=== PATIENT | male | born 1950 | race Caucasian/White ===

== ENCOUNTER → 2023-08-21 06:42 | Outpatient (REF) | payer MEDICARE, OTHER, SELFPAY ==
[2023-08-21 07:15] VITALS: BP 142/99; BP_SYST 75
[2023-08-21 07:18] LABS: % Basophils 0.5 % (0-2); % Eosinophils 2.2 % (0-6); % Immature Granulocytes 0.3 % (0-0.5); % Lymphocytes 30.2 % (20.5-51.1); % Monocytes 9.8 % (1.7-9.3); Absolute Eosinophils 0.1 10^3/uL (0-0.7); Absolute Monocytes 0.6 10^3/uL (0.1-0.6); Absolute Neutrophils 3.7 10^3/uL (1.4-6.5); Hematocrit 48.7 % (39.0-52.0); Hemoglobin 17.6 g/dL (13.0-18.0); Mean Corp Hgb Conc. 36.1 g/dL (33.0-37.0); Mean Corpuscular Hgb 30.1 pg (27.0-31.0); Mean Corpuscular Volume 83.4 fL (80.0-94.0); Mean Platelet Volume 9.9 fL (7.4-10.4); Nucleated Red Blood Cells % 0 % (-); Platelet Count 205 10^3/uL (130-400); Red Blood Cell Count 5.84 10^6/uL (4.70-6.10); Red Cell Dist. Width 12.5 % (11.5-14.5); White Blood Cell Count 6.5 10^3/uL (4.8-10.8)
[2023-08-21 07:31] LABS: INR 1.04; PT 13.4 Sec (11.4-14.6)
[2023-08-21] MEDS: NSS (PRESERVATIVE FREE) 0.25 ML IV (08:19)
[2023-08-21] MEDS: ATIVAN 0.5 MG IV (08:19)
[2023-08-21] MEDS: FLUSH (NSS) 1 FLUSH IV (08:20)
[2023-08-21 09:04] VITALS: BP 165/106; BP_SYST 96
[2023-08-21 09:25] VITALS: BP 156/104
== END ==
LOC: RADI 06:42
PROVIDERS: ATTENDING PHYSICIAN Internal Medicine Hematology & Oncology
DX: D75.1 Secondary polycythemia (principal); D68.8 Other specified coagulation defects; R59.9 Enlarged lymph nodes, unspecified
CPT/HCPCS: 88305; 88311; 88312; 36415; 38222; 77012; 85025; 85610; 88313; 88341; 88342

== ENCOUNTER 2025-03-02 05:28 | Inpatient (IN) | payer MEDICARE, OTHER, SELFPAY ==
[2025-03-02] VITALS (24 sets, daily range): BP systolic 111–186; BP diastolic 74–110; BMI 31.4; BMI 30.8
[2025-03-02 00:39] LABS: Hematocrit 44.9 % (39.0-52.0); Hemoglobin 14.3 g/dL (13.0-18.0); Mean Corp Hgb Conc. 31.8 g/dL (33.0-37.0); Mean Corpuscular Volume 71.5 fL (80.0-94.0); Platelet Count 140 10^3/uL (130-400); Red Cell Dist. Width 17.1 % (11.5-14.5)
[2025-03-02 00:56] LABS: ALT (SGPT) 50 U/L (0-50); AST (SGOT) 108 U/L (17-59); Albumin 4.0 g/dl (3.5-5.0); Alkaline Phosphatase 71 U/L (38-126); Blood Urea Nitrogen 24 mg/dl (9-20); Calcium 9.1 mg/dl (8.4-10.2); Carbon Dioxide 25 mmol/L (22-30); Chloride 105 mmol/L (98-107); Glucose 124 mg/dl (70-99); Potassium 3.9 mmol/L (3.5-5.1); Sodium 138 mmol/L (135-145); Total Protein 6.6 g/dl (6.3-8.2); eGFR > 60.00
[2025-03-02 01:07] LABS: Troponin I 0.017 ng/ml
[2025-03-02 01:19] LABS: Nucleated Red Blood Cells % 0 % (-)
[2025-03-02] MEDS: NSS 1000 IV (02:22)
[2025-03-02 02:27] LABS: Urine Character Clear (Clear)
--- NOTE | 2025-03-02 04:01 | ED.GENMED ---
History of Present Illness
General
Chief Complaint: Fatigue
Source: patient
Time Seen by Provider: 03/02/25 01:48
Nursing documentation reviewed up to this point in time: agreed with
History of Present Illness
History of Present Illness:
Note:
CHIEF COMPLAINT(S)
Difficulty walking and weakness.
HISTORY OF PRESENT ILLNESS
The patient is a 74-year-old male with a notable past medical history of a massive stroke from which he has recovered. He currently presents with significant difficulty in walking, attributed to weakness in his legs. This issue began approximately
over the past week. The patient describes his legs as 'tired' and states he must hold on to something to walk. There is no recent history of falls. The patient denies any pain other than in the right arm and reports having no strength. He also has
been experiencing agitation, particularly at night. Additionally, he has iron deficiency anemia and has experienced low platelet levels, although these issues have not been longstanding. He is not on any new medications.
ADDITIONAL HISTORY OBTAINED FROM SOURCES OTHER THAN THE PATIENT
Information from a family member indicates that the patient had recovered well physically from a previous stroke. The family member notes that the patient has been suffering from anxiety and mental agitation, especially at night, but otherwise has
been physically active until recently.
CHRONIC MEDICAL CONDITIONS SIGNIFICANTLY AFFECTING CARE
History of a massive stroke with subsequent recovery.
REVIEW OF SYSTEMS
- Musculoskeletal: Reports significant weakness in the legs and right arm; difficulty walking.
- Neurological: Mentions of occasional agitation at night, no recent falls.
- Hematological: Reports low platelets and iron deficiency.
PHYSICAL EXAM
General: Confused, moderate acute distress, agitated
Skin: Warm, dry.
Head: Normocephalic, atraumatic.
Neck: Supple, trachea midline.
Eye Ears, nose, mouth and throat: Oral mucosa moist.
Cardiovascular: Normal peripheral perfusion, No edema.
Respiratory: Respirations are non-labored.
Gastrointestinal: Abdomen nondistended.
Back: Normal range of motion, Normal alignment.
Musculoskeletal: Significant weakness in right arm and legs.
Neurological: Alert, No focal neurological deficit observed.
Psychiatric: Agitated, flat affect occasional night-time agitation.
PROBLEM LIST
Acute Problems:
- Difficulty walking and leg weakness
- Possible urinary retention
Confusion
Chronic Problems:
- Stroke (resolved but with residual issues)
- Iron deficiency anemia
PLAN
- Further assessment of the cause of leg weakness, including a possible neurological evaluation.
- Conduct a bladder scan to assess for urinary retention, possible Pederson catheter insertion for relief if necessary.
- Review complete blood count and iron levels to address the anemia and thrombocytopenia.
- Consider psychological support or intervention for nighttime agitation and anxiety management.
DIFFERENTIAL DIAGNOSIS
The Differential Diagnosis includes, in no particular order, and is not limited to:
- Peripheral neuropathy
- Anemia-related weakness
- Cerebrovascular accident recurrence
- Parkinsonian syndrome
- Orthostatic hypotension
- Muscle wasting or atrophy
- Deconditioning
- Urinary tract infection
- Spinal stenosis
- Medication side effects
CARE-UPDATE
03/02/25 - 03:45
The patients reports the onset of confusion began prior to 10 a.m. yesterday. Despite this, the patient attempted to drive, indicating an episode of disorientation as he believed he had a dental appointment. His confusion persisted throughout
the day. There is a history of a similar incident that resolved spontaneously without identifying the cause. The patient was found to be slightly dehydrated and received fluids, but this did not improve his mental status or affect. Further
investigation into potential underlying causes of acute confusion is warranted.
Disposition:
SUMMARY OF ENCOUNTER
The patient is a 74-year-old male with a history of a massive stroke who presented to the emergency department with acute confusion and dehydration. The confusion began prior to 10 a.m. yesterday and persisted for the last 20 hours. Despite
dehydration being addressed with fluids, there was no improvement in his mental status.
DISPOSITION
Admit
ASSESSMENT
Acute confusion possibly related to dehydration and a history of stroke.
DIAGNOSIS
- Acute confusion (ICD-10: R41.0)
- History of stroke (ICD-10: Z86.73)
- Dehydration (ICD-10: E86.0)
Past History
Past History
ED Past Medical History: GERD
Social History
Tobacco: Non-smoker
Personal:
Living: with family
Review of Systems
Review of Systems
Allergies reviewed?: No
Unable to obtain full review of systems at this time due to: due to acuity
Other source history: family
All Other Systems: Not applicable
Phy Exam
Physical Exam
Physical Exam:
.
Course
Orders/Labs/Results
Orders:
Orders
03/02/25 00:24
Electrocardiogram (*1) Urgent
Reason for Study: Fatigue / Weakness
03/02/25 00:25
EKG- Treatment ONCE
03/02/25 00:28
Complete Blood Count/With Diff Urgent
03/02/25 00:29
Comprehensive Metabolic Panel Urgent
Troponin I Urgent
03/02/25 01:54
Bladder Scan- Treatment ONCE
Bladder Scan As Directed
Follow Bladder Retention/Intermittent Cath Algorithm?: Yes
PRN if no void in __ hours: 6
Frequency: Per Retention Algorithm
If Bladder Scan Result >: 400
then:: Straight cath
Straight Cath As Directed
Frequency: Per Retention Algorithm
Additional Instructions: straight cath as needed per acute urinary retention algorithm for 24 hrs
Additional Instructions: for bladder scan greater than 400 mL
03/02/25 01:55
Straight cath- Treatment ONCE
03/02/25 02:00
0.9% Sodium Chloride 1000 ml [Nss] 1,000 ml IV BOLUS
03/02/25 02:05
Urinalysis Reflex To Culture Urgent
Date Specimen was Collected: 03/02/25
Time Specimen was Collected: 01:54
03/02/25 02:[address] [CT Head W/o Iv Contrast] Urgent
Comment:
Reason For Exam: change in mental status
Abnormal Lab Results
03/02/25 03/02/25
00:28 00:29
RBC 6.28 H 10^6/uL
(4.70-6.10)
MCV 71.5 L fL
(80.0-94.0)
MCH 22.8 L pg
(27.0-31.0)
MCHC 31.8 L g/dL
(33.0-37.0)
RDW 17.1 H %
(11.5-14.5)
MPV 10.9 H fL
(7.4-10.4)
Absolute Neuts (auto) 7.2 H 10^3/uL
(1.4-6.5)
Neutrophils % 81.0 H %
(42.2-75.2)
Lymphocytes % 13.0 L %
(20.5-51.1)
BUN 24 H mg/dl
(9-20)
Glucose 124 H mg/dl
(70-99)
AST 108 H U/L
(17-59)
03/02/25 00:28
03/02/25 00:29
Vital Signs
Initial and Last Documented VS:
Initial Vital Signs
Temp Pulse Resp Pulse Ox
99.0 F 88 16 98
03/02/25 00:19 03/02/25 00:19 03/02/25 00:19 03/02/25 00:19
Last Documented Vital Signs
Temp Pulse Resp BP Pulse Ox
99.0 F 69 20 128/78 98
03/02/25 00:19 03/02/25 04:07 03/02/25 04:07 03/02/25 04:07 03/02/25 04:07
*Radiology
Radiology exam reviewed: radiology read reviewed
*Pulse Oximetry
SaO2: 92
Oxygen Mode of Delivery: Room air
Patient hypoxic: no
*Critical Care Note
Total Time (30-74mins, 75-104mins- exclusive of procedures): Not Applicable
Update Note
Update Note:
NAME: RADHA MENDOSA
DATE OF EXAM: 03/02/2025
Patient No: [id number]
Physician: JONNA^Haily
Date of : 1950
Past Medical History (entered by Technologist):
Reason For Exam (entered by Technologist):
Other Notes (entered by Technologist): change in mental status
Prior sent
Additional Information (per [facility]):
CT HEAD
IMPRESSION:
Comparison with CT head from 07/11/19.
No acute intracranial hemorrhage, herniation or hydrocephalus.
Again seen, old right MCA stroke.
Stable ventricular size and similar appearance of supratentorial white matter.
Case finalized at 359am ET
ED Attending Note
-
Portions of this chart may have been created with voice recognition software.� Occasional wrong word or��sound alike� substitutions may have occurred due to the inherent limitations of voice recognition software.
Discharge Plan
Departure
Patient Disposition: Admit
Date of Disposition: 03/02/25
Time of Disposition: 04:01
Admit to: Med/Surg
Presentation/result/management discussed w/ accepting MD/DO: Hospitalist
Discharge Problem:
Acute alteration in mental status, Acute dehydration, History of stroke
Prescriptions:
No Action
rosuvastatin 5 MG tablet
5 mg PO WE
alfuzosin [Uroxatral] 10 MG tablet extended release 24 hr
10 mg PO HS
Eliquis 5 MG tablet
5 mg PO BID
acetaminophen [Tylenol Extra Strength] 500 MG tablet
1,000 mg PO Q6HPRN PRN (Reason: mild pain)
escitalopram oxalate 20 MG tablet
20 mg PO DAILY
Metamucil Fiber (aspartame) 1 PACKET powder in packet
1 packet PO DAILY
finasteride 5 MG tablet
5 mg PO HS
levetiracetam 500 MG tablet
1,000 mg PO BID Qty: 120 0RF
losartan 100 mg Tablet
100 mg PO DAILY
Referrals:
Merrick Mcpherson MD [Family Provider, Family Practice]
Interventions
Interventions:
*Risk Screen - Suicide Last Done: 03/02/25 00:19
*General Assessment Last Done: 03/02/25 00:19
*Neglect/Abuse Screening Last Done: 03/02/25 00:19
*ED- Fall Risk Assessment Last Done: 03/02/25 02:01
*ED COVID-19 Vaccine History Last Done: 03/02/25 02:01
Discharge Date and Time
Print Language: LIBERIAN
--- NOTE | 2025-03-02 04:18 | HPS.HSE ---
Family Physician
-
Family Physician: Merrick Mcpherson
Chief Complaint
-
Altered mental status
History of Present Illness
Patient is a 74-year-old male with past medical history significant for prior right MCA stroke that was dense but which is currently only minimal residual deficits including mild lower extremity weakness and some intermittent effusion, atrial
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
According to spouse patient was driving and in usual state of health up until very recently including the last few days. He initially stated that he was dragging his foot more on his feet where heavy. Has on blood test which showed slightly low
iron and slightly low sodium of 133. He hydrated himself with electrolytes and at red meats. However he is weakness worsened and they started to appear more confused. He was disoriented and unable to reach realize when his appointments where. By
time distance of this evening patient appeared frustrated and unable to process*White is all accomplished minimal goals. Even when he wants to use the bathroom in the middle of the night he seemed confused and agitated.
Spouse denies any recent travels or known sick contacts. She initially did not report any rash but was he was found to have a petechial rash in the bilateral shins.
According to spouse patient has not complained of any fevers. Has not had any episode of chills. He did not complain of any shortness of breath cough or chest discomfort. He has not had any diarrhea nausea or vomiting. He has not been complain
of any headaches. Spouse reported some asymmetry in his gaze but she did not report any focal weakness facial droop or slurring of speech. At this time patient is unable to provide any history.
In the emergency department he was afebrile with a temp of 99, blood pressure was normal at 128/78 with a pulse rate of 69 and was satting 98% on 2 L. ECG shows atrial fibrillation at a rate of 81. CBC was unremarkable, electrolytes BUN/creatinine
were all normal. Troponin was negative, UA was negative.
Medical History
Past Medical History
Past Medical History: Reports Arrhythmia (Atrial fibrillation on anticoagulation), CVA, HTN, Seizures and Other (BPH,)
Past Surgical History: Reports Appendectomy and Other
Social History
Tobacco: Non-smoker
Alcohol: None
Drug: None
Personal:
Living: With Family
Employment: Disabled
Family History
Family History: Not pertinent
Allergies / Home Medications
Allergies reflects when Allergies were last updated in [facility].
Home Medications with original date entered in [facility]
Allergy/Medication List:
Allergies
Allergy/AdvReac Type Severity Reaction Status Date / Time
No Known Allergies Allergy Unverified 09/19/21 06:45
Home Medications
acetaminophen 500 mg tablet (Tylenol Extra Strength) 1,000 mg PO Q6HPRN PRN mild pain 07/11/19
alfuzosin 10 mg tablet,extended release 24 hr (Uroxatral) 10 mg PO HS 07/11/19
apixaban 5 mg tablet (Eliquis) 5 mg PO BID 07/11/19
escitalopram oxalate 20 mg tablet 20 mg PO DAILY 07/11/19
finasteride 5 mg tablet 5 mg PO HS 07/11/19
psyllium husk 3.4 gram oral powder packet (Metamucil Fiber (aspartame)) 1 packet PO DAILY 07/11/19
rosuvastatin 5 mg tablet 5 mg PO WE 07/11/19
levetiracetam 500 mg tablet 1,000 mg (2 x 500 mg) PO BID #120 tabs 07/13/19
losartan 100 mg tablet 100 mg PO DAILY 08/21/23
Review of Systems
-
Unable to obtain full review of systems at this time due to: Patient Non-verbal
History Source: Family
Constitutional: Denies Fever or Chills
EENT: Denies Sore Throat or Runny Nose
Respiratory: Reports No Symptoms
Cardiac: Reports No Symptoms
Abdomen/GI: Reports No Symptoms
: Reports No Symptoms
Musculoskeletal: Reports No Symptoms
Skin: Reports Rash; Denies Itching
Neurological: Reports Weakness and Other (Confusion)
Endocrine: Reports No Symptoms
Hematologic/Lymphatic: Reports No Symptoms
Psych: Reports No Symptoms
Physical Exam
Vital Signs
Vital Signs
Temp Pulse Resp BP Pulse Ox
99.0 F 69 20 128/78 98
03/02/25 00:19 03/02/25 04:07 03/02/25 04:07 03/02/25 04:07 03/02/25 04:07
Physical Exam
General: Other (very confused and essentially non-verbal, looks stated age and in no acute distress)
HEENT: NormoCephalic, Anicteric, Moist mucous membranes, Atraumatic and Oxygen
Respiratory: Clear (anteriorly) and Non Labored Respirations
Cardiac: S1/S2 and Irregular Rhythm; No Murmur, Rub or Gallop
Breast: Deferred by me
GI: Soft, Non Distended, Normal Bowel Sounds and Tender
Rectal: Deferred by Provider
Genito-urinary: Deferred by me
Musculoskeletal: No Clubbing, No Cyanosis and No Edema
Skin: Rash (bilateral papulo-macular erythematous rash on the shins)
Neuro: Awake, Slurred Speech and Other (unable to complete full exam. Delirium without agitation or somnolence, Patient can follow very simple commands but does not respond with any speech. Moves all extremities when asked and exam otherwise
non-focal); No Facial Droop
Hematologic/Lymphatic: No Lymphadenopathy
Psych: Confused
Laboratory Results
-
03/02/25 00:28
03/02/25 00:29
Laboratory Results
Total Bilirubin 0.5 mg/dl (0.2-1.3) 03/02/25 00:29
AST 108 U/L (17-59) H 03/02/25 00:29
ALT 50 U/L (0-50) 03/02/25 00:29
Alkaline Phosphatase 71 U/L (38-126) 03/02/25 00:29
Troponin I 0.017 ng/ml 03/02/25 00:29
Data Reviewed
-
CT Scan: Report Reviewed by me
Medical Tests (Nuc Med, Echo, EKG etc): Image Personally Visualized and interpreted
Lab Data: Labs Reviewed by me
Old Records: Reviewed
Impression/Plan
-
IMPRESSION:
Is a 74-year-old with past medical history significant for right MCA stroke with minimal residual deficits, atrial fibrillation on anticoagulation, BPH and hypertension presenting to the emergency department with rapid declining mental status over
the last 1 week. Patient was driving 1 week ago but now he is extremely confused and unable to verbalize any desires or respond with verbal statements to any questions, he has severe apraxia. He is delirious but is not agitated and is not
somnolent. He can follow very simple commands. ED workup was mostly unrevealing without any evidence of any acute infection. ECG shows his atrial fibrillation was rate controlled. CT of the head shows the old stroke but no acute intracranial
hemorrhage herniation or hydrocephalus or other changes. No apparent seizures.
PLAN:
Altered mental status -patient with delirium without somnolence or agitation. He has no focal deficits. He has a rash in his lower extremities, no neck stiffness, no nuchal rigidity. He is afebrile. He has no known sick contacts or recent
travel. No evidence of any insect bites. He does grimace with palpation of his abdomen but not anywhere else. Suspect toxic metabolic encephalopathy more than recrudescence of his stroke.
- admit to telemetry
- continue eval of systemic infectious process with xray, CT a/p, covid 19 and influenza
- check inflammatory markers, tpalldium, lyme
- MRI w/ w/o contrast to eval for recrudescence / new infarct
- considering herpes/viral encephalitis, Neurology consult. In the absence of meningeal signs, held off on LP or anti-infectious agents
- neurochecks q6 hours
- continue keppra (checking levels)
- continue statin
AFIB - rate control without mic agent
- continue eliquis
- continue losartan
BPH
- on alfusozin and finasteride
DVT PPX - on eliquis
Code status - Full Code, no prolonged life support
[2025-03-02 06:54] LABS: Ammonia < 9 umol/L (9-30)
[2025-03-02 06:57] LABS: Blood Urea Nitrogen 22 mg/dl (9-20); Calcium 8.6 mg/dl (8.4-10.2); Carbon Dioxide 29 mmol/L (22-30); Chloride 104 mmol/L (98-107); Estimated Creatinine Clearance 87 ml/min; Glucose 111 mg/dl (70-99); Potassium 4.2 mmol/L (3.5-5.1); Sodium 138 mmol/L (135-145); eGFR > 60.00
[2025-03-02 07:00] LABS: C-Reactive Protein 22.40 mg/L (0.0-10.00)
[2025-03-02 07:02] LABS: COVID-19 Antigen Negative (Negative)
[2025-03-02 07:06] LABS: Hematocrit 44.7 % (39.0-52.0); Hemoglobin 13.9 g/dL (13.0-18.0); Mean Corp Hgb Conc. 31.1 g/dL (33.0-37.0); Mean Corpuscular Volume 72.7 fL (80.0-94.0); Platelet Count 146 10^3/uL (130-400); Red Cell Dist. Width 16.1 % (11.5-14.5)
--- NOTE | 2025-03-02 08:30 | TRANSFER ---
0755: pt arriving from Er requiring pullover into hospital bed accompanied by spouse. pt non verbal, on 4L NC. pt does follow simple instructions. NIH and swallow screen being preformed and documented. pt to remains NPO. NIH resulted in a score of
14. MD Garcia and MD Salas made aware via T.T. plan of care continues to be followed.
--- NOTE | 2025-03-02 08:48 | CON.NEURO ---
Addendum entered and electronically signed by Angelo Salas MD 03/02/25 14:16:
Studies reviewed.
I have personally examined the patient. I reviewed and agree with the J[employer] G[employer] DEVELOPER's Note.
My addenda:
Awake, not alert, minimally interactive. No acute distress.
Speech mute.
Follows 1-step requests w/ difficulty and not without physical stimulation to replicate the task. Diffuse medium amplitude hand tremor with action.
Extra-ocular movements grossly intact.
Facial movements full and symmetric.
Normal UE movements bilaterally.
Neck: full ROM.
Chest: no dyspnea
Heart: no JVD
Ext: (-) Clubbing, (-) Cyanosis, (-) Edema
IMPRESSIONS/RECOMMENDATIONS:
Abrupt onset of encephalopathy of unclear etiology. Based on the mild maculopapular rash on bilateral lower extremities distally, there is the possibility of infectious etiology. More likely, the patient is experiencing either status epilepticus
or recurrent acute ischemic stroke
Check EEG, consider continuous EEG monitoring
Check MRI of brain, I reviewed, there is no obvious evidence of an acute ischemic lesion nor is there evidence of meningitis at this time
Replace levetiracetam with the use of valproic acid due to the patient's agitation
Consider lumbar puncture based on EEG and MRI findings
Unclear meaning of the urine drug screen testing suggesting methamphetamine
Continue apixaban
Check blood work for additional metabolic abnormalities
D/W patient / family
Will continue to follow patient.
Original Note:
Neuro Assessment/Plan
Assessment
The patient is a 74-year-old male with a notable past medical history of right MCA stroke with subsequent seizures from 2018 currently taking Levetiracetam. He presents to [facility] on 03/02/2025 with significant difficulty in walking and change in
mental status.
Plan
Impression: abrupt onset of ambulatory dysfunction, change in mental status most likely due to seizure vs meningitis vs stroke which is less likely given he is anticoagulated with Eliquis
-obtain LP
-obtain brain MRI as planned
-obtain EEG
-as patient with agitation, discontinue Levetiracetam and start Valproic Acid 1000 mg BID
-seizure precautions
-check blood work for metabolic disturbances and infection
-continue Eliquis and statin therapy for secondary stroke prevention
-PT/OT/ST evaluations
-DVT prophylaxis
All questions encouraged and answered, plan of care discussed with Dr. Salas, patient and family
Consultation
Order
Date of Consultation: 03/02/25
Requesting Provider: hospitalist
Reason for Consult: change mental status
Subjective/Objective
Subjective Data
Date of Service: March 02, 2025
The patient is currently nonverbal and minimally participating, all information obtained from chart and patient's at bedside. The patient is a 74-year-old male with a notable past medical history of right MCA stroke with subsequent seizures
from 2018 currently taking Levetiracetam. He presents to [facility] on 03/02/2025 with significant difficulty in walking and change in mental status. This issue began approximately over the past week. There is no recent history of falls. He also had been
experiencing agitation, particularly at night. This morning notes patient became nonverbal, although he did make a joke to his nurse but has not said anything else. Additionally, he has iron deficiency anemia and has experienced low platelet
levels, although these issues have not been longstanding. He is not on any new medications. No recent illness or infection. On his current exam patient appears confused, he is nonverbal and minimally following commands. He is tremulous throughout,
with bilateral right beating nystagmus. He has facial flushing, rash noted to his b/l shins and requiring oxygen via nasal cannula.
He was last seen in the outpatient setting by Dr. Salas on 04/07/2024.
'Stroke:�
������History from patient
Since last visit:
03/2024
>> returns for refill of anti-seizure medication
June 2021
no new events
Previous testing: MRI of brain, Linq device, TTE, CT head, blood work
Previous evaluation: neuropsychological evaluations, [facility], cardiology
Prior medication(s): ASA, Atorvastatin, anti-HTN meds
Side-effects with medications: none
Previous treatment(s): none
Frequency: daily
Duration: since 01/2018
Intensity: significant
Etiology: presumed thrombo-embolic
Location of lesion: R frontal
Quality: N/A
Associated symptom(s): anxiety, previously left-sided weakness and cognitive dysfunction
Improving factors: patient unaware of any
Worsening factors: patient unaware of any
Unchanged by: patient unaware of any
Severity: significant
~~~
Pattern:
began (prior to initial evaluation in this office):
with falling and being found by his at 0700 on 01/2018
found to have L-sided weakness and cogntive dysfunction
then presented to ED, decided to need Alteplase and underwent Intra-arterial Thrombectomy
had post-procedural cerebral edema which worsened over next day leading to transfer to [facility]
no intervention at [facility], later sent to rehab.
Since hospitalization: difficulty w/ name recall, improving x 3 weeks
Followed by: return to driving
has planned neuropsychological testing in October
episodes of anxiety, memory difficulty
started Lexapro (and increased to 10 mg 2 days ago)
was seen by [facility] in past 2 months
>> Contacted by cardiology and they did not note any atrial fibrillation. Memory has continued to improve. He had been back to work and is retiring next week.
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
>> 05/2020
increased anxiety
balance off in the AM, no trouble with walking or running.
Seizure:�
������Since last visit:
June 2021
no new events
Previous testing: blood work, MRI of brain, 16 hours cEEG
Prior medication(s): Levetiracteam
Side-effects with medications: none
Previous treatment(s): therapy evaluation
Frequency: once 06/2019
Intensity: N/A
Duration: since 06/2019
Duration of symptom: > 1 hour
Associated symptom(s): generalized shaking, tongue biting
Etiology: presumed secondary to ischemic stroke
Location: N/A
Quality: unchanged
Improving factors: patient unaware of any
Worsening factors: patient unaware of any
Unchanged by: patient unaware of any
Severity: significant
~~~
Pattern:
Hospitalized due to: 07/11/2019 generalized shaking on R cheek biting while seated
seen by our inpatient service and my colleague
Adapted from the inpatient note:
He had 2 generalized tonic-clonic seizures and mental status was not back to baseline completely between 2 seizures.
Patient had started Methotrexate 2 weeks before onset
Found as dx: unclear cause ? Methotrexate/ prior stroke
Since hospitalization: was having visual hallucinations, resolved x past 2 days
>> 24 hour EEG completed on 08/18/2019. Interpretation was that the EEG was normal during the awake and sleep states. The study was somewhat limited as leads in the right temporoparietal region became disconnected at the end of the recording. He
denies any recent seizure activity. He denies any staring. He has been able to work and his memory has improved since last visit.'
Objective Data
Vital Signs
Temp Pulse Resp BP Pulse Ox
98.2 F 88 20 165/106 91
03/02/25 08:20 03/02/25 08:20 03/02/25 08:20 03/02/25 08:20 03/02/25 08:20
Lab Results
03/02/25 05:57
03/02/25 05:57
Sodium 138 mmol/L (135-145) 03/02/25 05:57
Potassium 4.2 mmol/L (3.5-5.1) 03/02/25 05:57
BUN 22 mg/dl (9-20) H 03/02/25 05:57
Glucose 111 mg/dl (70-99) H 03/02/25 05:57
Calcium 8.6 mg/dl (8.4-10.2) 03/02/25 05:57
Ur Buprenorphine Negative (Negative) 03/02/25 02:05
Patient Allergies
No Known Allergies Allergy (Unverified 09/19/21 06:45)
Review of Systems
-
Unable to obtain full review of systems at this time due to: Patient Non-verbal
History Source: Patient
Physical Exam
-
physical exam limited due to patient being nonverbal and not participating in exam
General: Wearing Oxygen
HEENT: Normocephalic, Atraumatic and Anicteric
Neck: Full Range of Motion
Respiratory: Accessory Resp Muscle Use
Cardiac: No JVD
GI: Non-distended
Skin: Rash (b/l LEs)
Extremities: No Clubbing, No Cyanosis and No Edema
Psych: Confused and Agitated
Extended Neurological Exam
Attention Span & Concentration: Awake, Alert and Unable to Perform 2 Step Request
Memory: Unable to Assess (non verbal)
Tremor: Other (tremulous throughout)
Speech: Mute
Cranial Nerve II: Left Eye: Unable to Assess
Cranial Nerve II: Right Eye: Unable to Assess
Cranial Nerves III, IV, : Extraocular Movement: Other (b/l nystagmus to the right)
Cranial Nerve VII: Facial Symmetry: Normal Facial Symmetry
Cranial Nerve VIII: Hearing: Unable to Assess
Muscle Strength, Overall: Spontaneously Moves
Pronator Drift: Unable to Assess
Data Reviewed
-
CT Head: Report Reviewed and Image Reviewed
Labs: Report Reviewed
Lipid Profile: Ordered
HgbA1C: Ordered
Reviewed with: Physician, Patient and Family
Old Records: Summarized
Medications
-
Active Medications
Generic Name Dose Route Start Last Admin
Trade Name Freq PRN Reason Stop Dose Admin
Acetaminophen 650 mg 03/02/25 07:48
Acetaminophen 325 Mg Tablet PO 03/30/25 07:47
Q4HPRN PRN
mild pain/CAI/temp> 100.4F
Albuterol/Ipratropium 3 ml 03/02/25 07:48
Ipratropium 0.5/Albuterol 3 Mg (3 Ml Ampul) INH
R Q4HPRN PRN
shortness of breath
Protocol
Apixaban 5 mg 03/02/25 08:00
Apixaban (Eliquis) 5 Mg Tablet PO 03/30/25 07:59
BID LEIA
Bisacodyl 10 mg 03/02/25 07:48
Bisacodyl 10 Mg Rectal Suppository RECTAL 03/30/25 07:47
[id number] PRN
constipation
Escitalopram Oxalate 20 mg 03/02/25 08:00
Escitalopram 20 Mg Tablet PO 03/30/25 07:59
DAILY LEIA
Finasteride 5 mg 03/02/25 22:00
Finasteride 5 Mg Tablet PO 03/30/25 21:59
HS LEIA
Dextrose/Lactated Ringer's 1,000 mls @ 60 mls/hr 03/02/25 07:48
D5lr IV
.[id number] LEIA
Valproate Sodium 1,000 mg/ 60 mls @ 55 mls/hr 03/02/25 08:20
Sodium Chloride IV 03/02/25 09:25
NOW STA
Valproate Sodium 1,000 mg/ 60 mls @ 60 mls/hr 03/02/25 20:00
Sodium Chloride IV 03/30/25 19:59
Q12H LEIA
Losartan Potassium 100 mg 03/02/25 08:00
Losartan 100 Mg Tablet PO 03/30/25 07:59
DAILY LEIA
Ondansetron HCl 4 mg 03/02/25 07:48
Ondansetron 4 Mg/2 Ml Vial IV 03/30/25 07:47
Q6HPRN PRN
nausea and vomiting
Polyethylene Glycol 17 grams 03/02/25 07:48
Polyethylene Glycol Powder 17 Grams Packet PO 03/30/25 07:47
DAILYPRN PRN
constipation
Psyllium Hydrophilic Mucilloid 1 packet 03/02/25 08:00
Psyllium Packet PO 03/30/25 07:59
DAILY LEIA
Rosuvastatin Calcium 5 mg 03/04/25 08:00
Rosuvastatin (Crestor) 5 Mg Tablet PO 04/01/25 07:59
WE LEIA
Senna/Docusate Sodium 1 tablet 03/02/25 07:48
Docusate W/Senna (Karen-Colace) Tablet PO 03/30/25 07:47
BIDPRN PRN
constipation
Tamsulosin HCl 0.4 mg 03/02/25 22:00
Tamsulosin 0.4 Mg Capsule PO 03/30/25 21:59
HS LEIA
Home Medications
�Medication �Instructions �Recorded
acetaminophen 500 mg tablet 1,000 mg PO Q6HPRN PRN mild pain 07/11/19
(Tylenol Extra Strength)
alfuzosin 10 mg tablet,extended 10 mg PO HS 07/11/19
release 24 hr (Uroxatral)
apixaban 5 mg tablet (Eliquis) 5 mg PO BID 07/11/19
escitalopram oxalate 20 mg tablet 20 mg PO DAILY 07/11/19
finasteride 5 mg tablet 5 mg PO HS 07/11/19
psyllium husk 3.4 gram oral powder 1 packet PO DAILY 07/11/19
packet (Metamucil Fiber
(aspartame))
rosuvastatin 5 mg tablet 5 mg PO WE 12/27/19
levetiracetam 500 mg tablet 1,000 mg (2 x 500 mg) PO BID #120 07/13/19
tabs
losartan 100 mg tablet 100 mg PO DAILY 08/21/23
Past History
Past History
ED Past Medical History: GERD
Family/Social History
Tobacco: Non-smoker
Personal:
Living: with family
[2025-03-02 08:56] LABS: HDL Cholesterol 35 mg/dl; LDL Cholesterol, Calculated 46 mg/dl; Very Low Density Lipoprotein 39 mg/dl (0-30)
[2025-03-02] MEDS: DEPACON 60 MG IV ×2 (09:22→22:48)
[2025-03-02 09:24] LABS: Nucleated Red Blood Cells % 0 % (-)
[2025-03-02 09:45] LABS: Vitamin B12 627 pg/ml (239-931)
[2025-03-02] MEDS: LEXAPRO PO (09:51)
[2025-03-02] MEDS: COZAAR PO (09:51)
[2025-03-02] MEDS: METAMUCIL, KONSYL PO (09:51)
[2025-03-02] MEDS: ELIQUIS PO ×2 (09:51→20:52)
[2025-03-02 10:14] LABS: Glycohemoglobin (HgbA1c) 6.2 % (4.0-5.6)
[2025-03-02] MEDS: VALIUM INJECTION 5 MG IV (10:25)
[2025-03-02] MEDS: ZOFRAN 4 MG IV (10:32)
[2025-03-02] MEDS: D5LR 1000 IV (10:34)
--- NOTE | 2025-03-02 10:43 | PTCARENOTE ---
PT with 2.5 min seizure occurring while MD Garcia at bedside. Airway protected, HOB raised with equipment at bedside; zofran administered preemptively with pt on 4L NC. Seizure precautions in effect. pt to be transfered to IMU pending ready bed.
awaiting bedside EEG. pt remains on cardiac monitoring. continuous pulse ox established. bed low, rails elevated, spouse at bedside. side rails padded. plan of care continues to be followed.
--- NOTE | 2025-03-02 10:51 | W.PN.UPDATE ---
Update Note
Progress Note Update
Seen and admitted by Dr. López early hours of this am.
Seen later with Dr. Noel neurology who is recommending switch of seizure medication and consider transfer to higher level of care.
Came in today with the patient. Patient was mute but eyes open. During my conversation his left face started to twitch and then he had a generalized tonic-clonic seizure for 1 minute. Now postictal.
IV Valium 5 mg was given once.
According to the at bedside no breakthrough seizures since initial seizure. He was on Keppra.
Patient admitted with progressive change in mental status and lower extremity weakness.
Continue with valproic acid per neurology. As needed IV Valium for breakthrough seizures. If recurrent would need continuous EEG. For now we will do a bedside EEG
MRI of the brain once he recovers from his postictal state.
Pt was breathing heavy prior to seizure but was also hypoxic needing O2 via NC at 3 l
chest x-ray raising concern for pulmonary edema versus bilateral pneumonia. . Chest was sounding clear to me.
He was afebrile and white count was normal. Check a BNP. Troponins were 0.01 on admission.
EKG on admission showed afib (known hx) on eliquis .Rate controlled. Follow on tele.
Follow BNP.
Tx to IMU
DW and neuro
CHACE RN
--- NOTE | 2025-03-02 12:27 | EEG.RPT ---
Electroencephalogram Report
Recording
Date of EE03/02/25
Type of EEG: Routine
Length of EEG recordin minutes
Done with Video Recording: Yes
Patient Status: Inpatient
Recording Conditions: Awake and Drowsy
Hyperventilation Performed: No
Photic Stimulation Performed: Yes
Report
LESS THAN 1 HOUR EEG REPORT
LESS THAN 1 HOUR EEG INTERPRETATION:
Moderately abnormal EEG for age due to diffuse bihemispheric slowing
CLINICAL CORRELATION:
This study was suggestive of diffuse cortical dysfunction without focal abnormality. No seizures were recorded.
Clinical correlation is advised.
METHODS:
A 21 channel digitized electroencephalogram (EEG) was performed at the bedside. The 10/20 international system of electrode placement was used with ECG and lateral/vertical eye movements recorded. Persyst QEEG monitoring was performed.
QUALITY OF STUDY:
Fair�poor
ELECTROENCEPHALOGRAPHER IMPRESSION(S):
Background
There was a low amplitude unorganized anterior-posterior voltage gradient of delta frequency
There were no significant asymmetries of background activity noted.
Sleep
Drowsiness present
Photic Stimulation
Failed to activate the record.
ECG
Normal sinus rhythm
[2025-03-02 13:13] LABS: Lyme Antibody Screen, EIA Presump. Positive (Negative)
--- NOTE | 2025-03-02 15:43 | TRANSFER ---
report via phone provided to Perlita Woodruff receiving nurse in IMU. This Rn will be transporting pt on monitors with spouse at bedside with seizure precautions intact.
--- NOTE | 2025-03-02 16:42 | PTCARENOTE ---
Patient arrived to IMU from 3W. Patient slid from stretcher to bed. Nonverbal and occasionally moans. Patient tracks with eyes. Drowsy, but arouses to verbal stimuli. NIH and neuro check completed. NIH of 28. Dr. Garcia made aware. Able to squeeze
slightly with L hand. Unable to perform any other NIH scale task. On RA with SpO2 92%. A fib on the monitor. BP stable. Incontinent to urine upon arrival to the floor. Karen care completed. Strict NPO. Generalized red non raised rash throughout body.
IVF running per order. Seizure and aspiration precautions maintained. Max assist when turning patient as he gets very agitated. Call argueta within reach, bed in lowest position, bed of wheels locked, and bed alarm in place and audible.
[2025-03-02] MEDS: LASIX 20 MG IV (17:00)
[2025-03-02] MEDS: PROSCAR PO (21:13)
[2025-03-02] MEDS: FLOMAX PO (21:13)
--- NOTE | 2025-03-02 21:20 | W.PN.UPDATE ---
Update Note
Progress Note Update
RN reporting patient c/o chest pain and grabbing his chest, and then he went mute and wasn't responding much.
patient seen and evaluated, patient looks at you when you call name, not answering to questions at present, responds to pain and upon turning by moaning. Lungs clear, mildly tachypneic, irregular HR, warm to touch. voiding without difficulty
101.5 rectally, 79 22 137/86 92% 2l
EKG noted, will order labs, chest X rayTylenol.
lab results noted
will order blood culture if patient spikes up fever again
Procal, CBC, BMP in AM
[2025-03-02] MEDS: TYLENOL/FEVERALL 650 MG RECTAL (21:49)
[2025-03-02 21:56] LABS: Hematocrit 43.6 % (39.0-52.0); Hemoglobin 13.9 g/dL (13.0-18.0); Mean Corp Hgb Conc. 31.9 g/dL (33.0-37.0); Mean Corpuscular Volume 70.7 fL (80.0-94.0); Platelet Count 158 10^3/uL (130-400); Red Cell Dist. Width 17.2 % (11.5-14.5)
[2025-03-02 22:18] LABS: Blood Urea Nitrogen 19 mg/dl (9-20); Calcium 8.9 mg/dl (8.4-10.2); Carbon Dioxide 26 mmol/L (22-30); Chloride 106 mmol/L (98-107); Estimated Creatinine Clearance 115 ml/min; Glucose 128 mg/dl (70-99); Magnesium 2.0 mg/dl (1.6-2.3); Potassium 4.0 mmol/L (3.5-5.1); Sodium 137 mmol/L (135-145); eGFR > 60.00
[2025-03-02 22:29] LABS: Troponin I 0.062 ng/ml
[2025-03-03] VITALS (21 sets, daily range): BP systolic 121–169; BP diastolic 79–116; BMI 30.7
[2025-03-03] MEDS: D5LR 1000 IV (04:34)
[2025-03-03 04:53] LABS: Hematocrit 43.8 % (39.0-52.0); Hemoglobin 13.8 g/dL (13.0-18.0); Mean Corp Hgb Conc. 31.5 g/dL (33.0-37.0); Mean Corpuscular Volume 71.5 fL (80.0-94.0); Platelet Count 155 10^3/uL (130-400); Red Cell Dist. Width 17.1 % (11.5-14.5)
[2025-03-03 05:12] LABS: Procalcitonin 0.05 ng/ml (0.0-0.25)
[2025-03-03 05:13] LABS: Blood Urea Nitrogen 20 mg/dl (9-20); Calcium 8.5 mg/dl (8.4-10.2); Carbon Dioxide 26 mmol/L (22-30); Chloride 108 mmol/L (98-107); Estimated Creatinine Clearance 115 ml/min; Glucose 122 mg/dl (70-99); Potassium 3.8 mmol/L (3.5-5.1); Sodium 140 mmol/L (135-145); eGFR > 60.00
[2025-03-03 05:27] LABS: Troponin I 0.058 ng/ml
--- NOTE | 2025-03-03 06:07 | PTCARENOTE ---
Assumed care of pt from clifford RN. afib on monitor, hr 70-80s. 93% on 2L NC. D5LR infusing @ 60 mL/hr. Pt drowsy and nonverbal at start of shift with NIH of 22. Pt has slowly become more alert and now responds with single word or short phrases,
answers and nods his head appropriately. Current NIH 11. Neuro checks completed q4 (see worklist). At 2129, pt's rectal temp 101 F. Pt grabbed his chest, scrunched his face, and groaned. This RN asked the patient if he was having chest pain and he
nodded and winced again. MARILYN Nj notified. Rectal tylenol and labs ordered. EKG completed. Trop elevated 0.062, MARILYN Nj notified. Pt now normothermic and denies any pain. Seizure and aspiration precautions in place. Pt is resting in
bed asleep with bed alarm on.
[2025-03-03] MEDS: COZAAR PO (07:18)
[2025-03-03] MEDS: ELIQUIS PO ×2 (07:18→19:51)
[2025-03-03] MEDS: METAMUCIL, KONSYL PO (07:19)
[2025-03-03] MEDS: LEXAPRO PO (07:19)
[2025-03-03] MEDS: LASIX 20 MG IV (08:29)
[2025-03-03] MEDS: DEPACON 60 MG IV ×2 (08:29→19:43)
--- NOTE | 2025-03-03 09:44 | W.PN.HOSP.TC ---
Today's Communication/Plan
-
Lumbar puncture and CSF analysis
Consult ID
Continue with IV Lasix. Consult cardiology.
Start on Unasyn.
EEG for today.
Assessment / Plan
Assessment / Plan
Change in mental status
Presented with symptoms of weakness confusion for a week
Postadmission yesterday he had a breakthrough seizures. No history of witnessed seizures at home.
MRI of the brain showed no acute infarct.
Unclear he was having atypical seizures at home or any other FUNDER pathology including infection.
His petechial rash in the lower extremity and is present to Lyme serology positive. He had no fever and admission normal white count. Check CSF Lyme serology. findings raises concern for an infectious pathology. Consult ID. Obtain diagnostic
lumbar puncture.
He has a bilateral diffuse reticulonodular marking-with small pleural effusion raises more concern for diffuse pulmonary edema than pneumonia.
Neurology following-ongoing continued neurological workup.
Patient with history of previous stroke and seizures
Had a breakthrough seizure
Remains cognitively impaired-unclear if postictal encephalopathy or underlying seizures. Will have EEG per hour again today. Yesterday's prolonged EEG was negative for seizure activity.
Continue with valproic acid and as needed diazepam for now.
Bilateral pulmonary reticulonodular increased [id number] also showed small bilateral pleural effusion including fluid in the fissures and indistinctness of the central pulmonary vasculature or raising concern for pulm edema.
Troponins does not support acute coronary syndrome nor EKG
Continue with IV Lasix
Obtain cardiology input
Left upper new pulmonary infiltrate compared to admission chest x-ray
Patient had a seizure yesterday and this raises concern for aspiration pneumonitis/pneumonia. With elevated white count and fever will start on Unasyn.
History of stroke and A-fib
On Eliquis
Patient could not get as Eliquis due to his mental status. After LP will switch to Lovenox till able to take p.o. meds
Primary hypertension
Continue with losartan
BPH on medication
Acute urinary retention
Continue with this medication. Will leave the Pederson catheter in due to the large volume retention and currently ongoing acute neurological issues.
Discussed with at bedside
Discussed with neurology
Total time spent on today's encounter was 52 minutes which included time spent in counseling the patient/family regarding diagnosis and treatment plan as listed above, goals of care, and symptom management. Case was discussed with nursing staff,
specialists, and care coordinators/case management. All labs and imaging personally reviewed by me. Remainder the time spent in detailed review of previous records, lab data, imaging, and other medical provider documentation.
Anticipated Discharge: > 48 hours
Subjective/Interval History
-
Date of Service: March 03, 2025
Patient is awake and kind of alert.
Not oriented. Slightly agitated. Confused.
When asked where he is ,he said ' Where am i at ?' and goes quite without answering.
When asked if any thing hurt, he said 'Where does it hurt' and again no answer.
unable to put his hearing aid. Still not able to converse with the patient.
When asked for her name he was quite. When asked to name the family in the room he cannot.
Only 1 thing which came out is ' i need to pee' and he was noted to be in large retention on bladder scan.
Objective Data
-
Labs:
Laboratory Results
03/02/25 03/03/25
21:45 04:29
WBC 14.5 H 14.4 H
Hgb 13.9 13.8
Hct 43.6 43.8
Plt Count 158 155
Sodium 137 140
Potassium 4.0 3.8
Chloride 106 108 H
Carbon Dioxide 26 26
BUN 19 20
Creatinine 0.6 L 0.6 L
Glucose 128 H 122 H
Calcium 8.9 8.5
Vital Signs:
Vital Signs
Temp Pulse Resp BP Pulse Ox
98.5 F 95 20 142/95 92
03/03/25 08:30 03/03/25 09:00 03/03/25 09:00 03/03/25 08:29 03/03/25 08:29
I&O
03/02/25 03/03/25 03/04/25
06:59 06:59 06:59
Intake Total 780 / 780
Output Total 500 / 500
Balance 780 / 780 -500 / -500
Review of Systems
-
Unable to obtain full review of systems at this time due to: Other (Remains cognitively impaired)
Physical Exam
-
General: Negative Comfortable
Respiratory: Clear to Auscultation (Anteriorly) and Non Labored Respirations; Negative Accessory Resp Muscle Use
Cardiac: S1/S2, Irregular Rhythm and Tachycardic
GI: Soft and Normal Bowel Sounds
Neuro: Awake and Alert; Negative Oriented, No Motor Deficits (Difficult to examine because of his cognitive state but moves all 4 limbs.), Tremors, Slurred Speech or Facial Droop
Psych: Confused and Agitated
Data Reviewed
-
Labs: Labs Reviewed by me
--- NOTE | 2025-03-03 10:18 | PTCARENOTE ---
Patient saturated in urine. Condom cath placed with an output of [address] Garcia placed order to place mccauley catheter due to patient having distended bladder and agitation. Bladder scanned patient prior to insertion of mccauley and patient had 800 cc
in bladder. Patient had a small amount of red blood come out of penis during insertion of mccauley. Dr. Garcia made aware. Patient is more calm after insertion of mccauley. B/L hand mitts in place. Care ongoing.
--- NOTE | 2025-03-03 10:34 | CON.CAR ---
Addendum entered and electronically signed by Joey Bonilla MD 03/03/25 15:08:
I saw and examined the patient.
The TELESALES ADVISOR's note was reviewed and I agree with the note.
Comment:
74-year-old male (known to Dr. Humphrey, his primary parquetry floor layer), with MCA CVA (2018), permanent atrial fibrillation (on apixaban), hypertension, hypercholesterolemia, aortic atheroma, and seizure disorder who presented with change of mental
status. History is limited due to patient's altered mental status. There is no family at bedside at the time of my interview. Per chart review, there is concern for viral encephalitis or tickborne illnesses. Plan is for lumbar puncture today
with interventional radiology. Cardiology is consulted given concern for CHF based on pulmonary edema on chest x-ray and NT proBNP 1440 (confounded by permanent atrial fibrillation).
Physical exam: Alert, awakens to voice. Hands are in mitts. Does not answer questions or follow instructions. Irregular rhythm with normal rate. No loud murmurs, rubs, or gallops. Lungs clear anteriorly. No lower extremity edema.
Concern for CHF. There is some conflicting data. Chest x-ray shows pulmonary edema, but he examines euvolemic with no lower extremity swelling. BNP is elevated but this could be in the setting of permanent atrial fibrillation. Can continue
gentle daily IV diuresis. We will try to obtain a limited echocardiogram tomorrow once he is more cooperative.
For his atrial fibrillation, he should resume Eliquis once it is safe following lumbar puncture.
Continue infectious workup per ID.
Original Note:
Consultation
Consultation Request
Date/Time Consultation Requested: 03/03/2025 09:30
Date/Time Consultation Performed: 03/03/2025 10:30
Requesting Provider: Dr. Garcia
Performing Provider: MARILYN Cazares for Dr. Bonilla
Reason for Consultation: Pulmonary edema
Medical History
-
Chief Complaint: Change in mental status
History of Present Illness:
Jassi Vargas is a 74-year-old male (known to Dr. Humphrey, his primary parquetry floor layer), with MCA CVA (2018), permanent atrial fibrillation (on apixaban), hypertension, hypercholesterolemia, aortic atheroma, and seizure disorder who presented with
change of mental status. He was brought in by his . On exam, he is unable to contribute to this HPI due to his significant change in mental status.
Past Medical History
Past Medical History: Arrhythmias (permanent atrial fibrillation), CVA, HTN, Hypercholesterolemia and Seizures
Past Surgical History: Appendectomy
Social History
Personal:
Living: With Family
Employment: Retired
Family History
Family History: Unable to Obtain
Allergies / Home Medications
Allergy/AdvReac Type Severity Reaction Status Date / Time
No Known Allergies Allergy Unverified 09/19/21 06:45
�Medication �Instructions �Recorded �Confirmed �Type
acetaminophen 500 mg tablet 1,000 mg PO Q6HPRN PRN mild pain 07/11/19 03/02/25 History
(Tylenol Extra Strength)
alfuzosin 10 mg tablet,extended 10 mg PO HS Urinary Issue 07/11/19 03/02/25 History
release 24 hr (Uroxatral)
apixaban 5 mg tablet (Eliquis) 5 mg PO BID Blood Clot 07/11/19 03/02/25 History
Prevention/Tx
escitalopram oxalate 20 mg tablet 20 mg PO DAILY depression/anxiety 07/11/19 03/02/25 History
finasteride 5 mg tablet 5 mg PO HS Urinary Issue 07/11/19 03/02/25 History
psyllium husk 3.4 gram oral powder 1 packet PO DAILY Constipation 07/11/19 03/02/25 History
packet (Metamucil Fiber
(aspartame))
rosuvastatin 5 mg tablet 5 mg PO WE cholesterol 07/11/19 03/02/25 History
levetiracetam 500 mg tablet 1,000 mg (2 x 500 mg) PO BID #120 07/13/19 03/02/25 Rx
tabs
losartan 100 mg tablet 100 mg PO DAILY Blood Pressure 08/21/23 03/02/25 History
Review of Systems
-
Unable to obtain full review of systems at this time due to: Other (Confusion)
Physical Exam
Vital Signs
Temp Pulse Resp BP Pulse Ox
98.5 F 98 29 158/108 90
03/03/25 08:30 03/03/25 10:00 03/03/25 10:00 03/03/25 10:00 03/03/25 10:00
Lab Results
03/03/25 04:29
03/03/25 04:29
Troponin I 0.058 ng/ml H* 03/03/25 04:29
Mny-Z-Dzpwctowwyf Pept 1440 pg/ml 03/02/25 05:57
Physical Exam
General: Well Developed and No Apparent Distress
HEENT: Normocephalic, Anicteric and Moist Mucous Membranes
Respiratory: Clear and Non Labored Respirations
Cardiac: S1/S2 and Irregular Rhythm
Breast: Deferred by me
GI: Soft, Non Tender, Non Distended and Normal Bowel Sounds
Rectal: Deferred by Provider
Genito-urinary: No Costovertebral Tender
Musculoskeletal: No Clubbing and No Cyanosis
Skin: Warm and Dry
Neuro: Awake
Hematologic/Lymphatic: No Lymphadenopathy
Psych: Calm
Impression / Plan
-
I/P: 74M with MCA CVA (2018), permanent atrial fibrillation (on apixaban), hypertension, hypercholesterolemia, aortic atheroma, and seizure disorder who presented with change in mental status. Cardiology consulted for pulmonary edema on CXR.
Outpatient parquetry floor layer: Dr. Humphrey
Change in mental status, severe, requiring hospitalization
- Lower extremity rash with Lyme screen presump positive, sent out for Western blot
- No acute infarct on MRI
- ESR 4 and CRP 24.40, no leukocytosis on admission, but now febrile with leukocytosis overnight
- LP per primary service
Pulmonary edema
- Pulmonary edema on CXR, proBNP 1440 (no comparison), and mild hypoxemia not requiring oxygen
- Diuresis with intravenous furosemide, this requires intensive monitoring
- Echocardiogram will be challenging given his mental status
- Trend daily weight, I/O, and BMP with diuresis
Abnormal troponin, nonischemic myocardial injury in the setting of pulmonary edema
- Peak troponin 0.062
- He is confused on exam, not complaining of chest pain
- EKG does not demonstrate acute ischemia
Permanent atrial fibrillation
- Rate controlled without AV mic agents
- Oral Anticoagulation: Apixaban, 5 mg twice daily, unclear if he has had missed doses
- [id number]: score at least 5 (HTN, prior Stroke/TIA, Vascular disease, age 65-74)
Aortic atheroma, only tolerates rosuvastatin 5 mg once weekly, LDL at goal
Seizure disorder
Prediabetes
Prior CVA, right MCA with M1 occlusion, 2018
SUBJECTIVE:
As above.
Data Reviewed
-
EKG: Report Reviewed by me
Radiology: Report Reviewed by me
Medical Tests (Nuc Med, Echo etc): Report Reviewed by me
Labs: Labs Reviewed by me
Old Records: Reviewed
[2025-03-03] MEDS: UNASYN IV ×3 (11:16→22:22)
--- NOTE | 2025-03-03 11:53 | W.PN.NEURO.1 ---
Addendum entered and electronically signed by Angelo Salas MD 03/04/25 08:09:
CORRECTION:
Patient was mute, unable to follow single step requests.
Addendum entered and electronically signed by Angelo Salas MD 03/03/25 13:41:
Studies reviewed.
I have personally examined the patient. I reviewed and agree with the VEGETABLE COOK's Note.
My addenda:
Awake, alert, interactive. No acute distress.
Speech intact.
Follows 2-step requests w/o difficulty. No tremor.
Extra-ocular movements grossly intact.
Facial movements full and symmetric. Hearing intact to normal conversational volume.
Normal UE movements bilaterally.
Neck: full ROM.
Chest: no dyspnea
Heart: no JVD
Ext: (-) Clubbing, (-) Cyanosis, (-) Edema
IMPRESSIONS/RECOMMENDATIONS:
Abrupt onset of change in mental status in a patient with prior history of large right temporal and occipital stroke and recurrent seizure.
Unclear if the patient's current symptomatology is due to toxic metabolic encephalopathy related to the patient appearing to have congestive heart failure. The possibility of meningitis is lower based on the MRI of brain not demonstrating this
issue, however, not completely ruled out
Check lumbar puncture using interventional radiology, appreciate their assistance
Recheck EEG
Continue valproic acid at 1000 mg twice a day by IV
When possible, restart apixaban
Provide thiamine
Will continue to follow patient.
Original Note:
Today's Communication / Plan
-
-obtain LP
-continue Valproic Acid 1000 mg BID
-seizure precautions
-check blood work for metabolic disturbances and infection
-continue Eliquis and statin therapy for secondary stroke prevention
Neuro Assessment/Plan
Assessment
The patient is a 74-year-old male with a notable past medical history of right MCA stroke with subsequent seizures from 2018 currently taking Levetiracetam. He presents to [facility] on 03/02/2025 with significant difficulty in walking and change in
mental status.
Brain MRI:
1. No MRI evidence for acute infarct.
2. Large region of encephalomalacia in the right temporal and occipital lobes consistent with a large chronic transcortical infarct (partially hemorrhagic).
3. Moderate-sized band of encephalomalacia in the periventricular right frontal lobe and right basal ganglia consistent with a chronic hemorrhagic infarct (or resolved hypertensive intraparenchymal hemorrhage).
4. Mild volume loss in the left cerebral hemisphere and cerebellum.
Head CT:
1. No acute intracranial abnormalities appreciated.
2. Old infarct within the territory of the right MCA area of suspected acute infarct appreciated.
3. Cerebral atrophy and small vessel ischemic change, also stable compared to prior CT.
EEG: This study was suggestive of diffuse cortical dysfunction without focal abnormality. No seizures were recorded.
Plan
Impression: abrupt onset of ambulatory dysfunction, change in mental status most likely due to seizure vs infectious etiology
-obtain LP
-continue Valproic Acid 1000 mg BID
-seizure precautions
-check blood work for metabolic disturbances and infection
-continue Eliquis and statin therapy for secondary stroke prevention
All questions encouraged and answered, plan of care discussed with Dr. Salas, nurse and Dr. Garcia
Subjective/Objective
Subjective Data
Date of Service: March 03, 2025
Patient transferred to IMU for closer monitoring. Continues to have poor mental status and non verbal. Pederson placed for urinary retention.
Objective Data
Vital Signs
Temp Pulse Resp BP Pulse Ox
98.5 F 84 27 121/100 94
03/03/25 08:30 03/03/25 11:40 03/03/25 11:40 03/03/25 11:39 03/03/25 11:40
Lab Results
03/03/25 04:29
03/03/25 04:29
Sodium 140 mmol/L (135-145) 03/03/25 04:29
Potassium 3.8 mmol/L (3.5-5.1) 03/03/25 04:29
BUN 20 mg/dl (9-20) 03/03/25 04:29
Glucose 122 mg/dl (70-99) H 03/03/25 04:29
Calcium 8.5 mg/dl (8.4-10.2) 03/03/25 04:29
Jun-U-Xmaqskczmqw Pept 1440 pg/ml 03/02/25 05:57
LDL Cholesterol, Calc 46 mg/dl 03/02/25 05:57
Vitamin B12 627 pg/ml (239-931) 03/02/25 05:57
Ur Buprenorphine Negative (Negative) 03/02/25 02:05
Patient Allergies
No Known Allergies Allergy (Unverified 09/19/21 06:45)
Physical Exam
-
physical exam limited due to patient being nonverbal and not participating in exam
General: Wearing Oxygen
HEENT: Normocephalic, Atraumatic and Anicteric
Neck: Full Range of Motion
Respiratory: Accessory Resp Muscle Use
Cardiac: No JVD
GI: Non-distended
Skin: Rash (b/l LEs)
Extremities: No Clubbing, No Cyanosis and No Edema
Psych: Confused and Agitated
Extended Neurological Exam
Mood & Affect: Unable to Assess
Attention Span & Concentration: Awake and Unable to Perform 2 Step Request
Memory: Unable to Assess (non verbal)
Tremor: Other (tremulous throughout)
Speech: Mute
Cranial Nerve II: Left Eye: Unable to Assess
Cranial Nerve II: Right Eye: Unable to Assess
Cranial Nerves III, IV, : Extraocular Movement: Other (b/l nystagmus to the right)
Cranial Nerve VII: Facial Symmetry: Normal Facial Symmetry
Cranial Nerve VIII: Hearing: Unable to Assess
Muscle Strength, Overall: Spontaneously Moves
Pronator Drift: Unable to Assess
Data Reviewed
-
CT Head: Report Reviewed and Image Reviewed
MRI Head: Report Reviewed and Image Reviewed
EEG: Report Reviewed
Labs: Report Reviewed
Reviewed with: Physician and Nurse
Old Records: Summarized
[2025-03-03 11:59] LABS: INR 0.94; PT 12.8 Sec (11.4-14.6)
--- NOTE | 2025-03-03 13:11 | CM ---
Patient seen at bedside with Diana
for Lumbar puncture today
IA completed - patient in restraint
obtained by
abrupt onset of ambulatory dysfunction, change in mental status
Patient lives with in a 2 story home, 1 EDDIE, 16 steps to bed and bath, powder room on 1st floor
PLOF: Independent, no assistive device, Independent with ADL's
Denies DME
has had [facility] in past and [facility] in past ( states stroke approx 7 yrs ago)
Denies insecurities
PCP
--- NOTE | 2025-03-03 13:22 | CM ---
Patient seen at bedside with Diana
IA obtained by
abrupt onset of ambulatory dysfunction, change in mental status
in restraints
Lumbar puncture today
Lives in 2 story home, 1 EDDIE, 16 steps to bed/bath, powder room on 1st floor
PLOF: Independent no assistive device used, Indep with ADL's
Denies DME
has had [facility] in past [facility] in past for stroke
PCP: Merrick Mcpherson
Pharmacy: [facility]
PLAN: TBD, follow hospital progress, CM to follow for discharge planning needs
--- NOTE | 2025-03-03 13:22 | CON.ID ---
Consultation
-
Date/Time Consultation Requested: 03/03/2025 0934
Date/Time Consultation Performed: 03/03/2025 1320
Requesting Provider: Dr. Garcia
Performing Provider: Dr. Hairston
Reason for Consultation: Rash
Chief Complaint / Past History
History of Present Illness
Jassi Vargas is a 74-year-old man with a significant past medical history of prior CVA being evaluated at the request Dr. Garcia in regards to lower extremity rash and change in mental status. History is obtained from chart review along with history
from the patient's who is at the bedside. Currently no history was available from the patient as he is nonverbal for me.
According to the , the patient was in his usual state of health until last week when he began to report that his legs felt heavy. He saw his PCP late last week and blood tests were ordered, although it is not clear which ones were performed. 3
days ago he developed difficulty with urination and ultimately was brought to the hospital for further evaluation. In the emergency room he was noted to have a leukocytosis. Since admission, he has not had any significant improvement from a mental
status, and additionally developed a seizure while here. Infectious Diseases asked to comment upon further antibiotic management.
Per the , there has been no recent travel. They do have 1 dog at home. She has seen no ticks. A lower extremity rash is reported, although it precedes his presentation to the hospital. No circular rash is appreciated.
Past History
Additional Past Medical History:
A-fib
Hx CVA
HTN
Seizure disorder
BPH
Additional Past Surgical History:
Appendectomy
Allergy History:
No Known Allergies Allergy (Unverified 09/19/21 06:45)
Medications Reviewed: Yes
Current Antibiotics:
Unasyn 1.5 gm IV q.6 hours
Social History
Tobacco: Non-Smoker
Alcohol: None
Drug: None
Personal:
Living: With Family
Employment: Disabled
Family History
Family History: Not Pertinent
Review of Systems
Vital Signs
Temp Pulse Resp BP Pulse Ox
99.2 F 84 20 121/100 91
03/03/25 11:25 03/03/25 12:00 03/03/25 12:00 03/03/25 11:39 03/03/25 12:00
Physical Exam
Physical Exam
Constitutional: Comfortable, Acutely Ill and Non-toxic
Head: Normocephalic
Eyes: Pupils Equal, Pupils Round, No Conjunctival Hemorrhage and Sclera Anicteric
Oral: No Thrush and No Ulcers
Cardiovascular: Irregular Rate and S1/S2; Negative S3/S4
Pulmonary: Clear; Negative Wheezes, Rales or Rhonchi
Gastrointestinal: Soft, Non Tender, Non Distended and Normal Bowel Sounds
Genito-Urinary: Pederson and Clear Urine; Negative Turbid Urine
Extremities: Negative Edema, Cyanosis or Erythema
Musculoskeletal: Negative Joint Swelling or Joint Effusion
Skin: Warm, Dry and Rash (Limited and faint macular rash noted on the lower extremities in the pretibial area.)
Wound: None
Neurological: Awake and Other (Nonverbal for me); Negative Meningeal Signs (No nuchal rigidity)
Psychological: Calm and Confused
Lab / Diagnostic Study Results
03/03/25 04:29
03/03/25 04:29
Abs Immat Gran (auto) 0.1 10^3/uL (0-0.05) H 03/02/25 05:57
Absolute Neuts (auto) 8.0 10^3/uL (1.4-6.5) H 03/02/25 05:57
Absolute Lymphs (auto) 1.0 10^3/uL (1.2-3.4) L 03/02/25 05:57
Absolute Monos (auto) 0.4 10^3/uL (0.1-0.6) 03/02/25 05:57
Absolute Basos (auto) 0.0 10^3/uL (0-0.2) 03/02/25 05:57
Immature Gran % 0.5 % (0-0.5) 03/02/25 05:57
Neutrophils % 85.0 % (42.2-75.2) H 03/02/25 05:57
Lymphocytes % 10.0 % (20.5-51.1) L 03/02/25 05:57
Monocytes % 4.2 % (1.7-9.3) 03/02/25 05:57
Eosinophils % 0.1 % (0-6) 03/02/25 05:57
Basophils % 0.2 % (0-2) 03/02/25 05:57
ESR 4 mm/hour (0-20) 03/02/25 05:57
PT 12.8 Sec (11.4-14.6) 03/03/25 11:26
INR 0.94 03/03/25 11:26
Lactic Acid 1.5 mmol/L (0.7-2.0) 03/02/25 21:45
C-Reactive Protein 22.40 mg/L (0.0-10.00) H 03/02/25 05:57
Procalcitonin 0.05 ng/ml (0.0-0.25) 03/03/25 04:29
Microbiology Results
Micro:
03/02/25 05:57 Influenza Types A & B (FABRIZIO) - Final
Nasal Swab Negative for Influenza A & B, NAAT
Negative results must be combined with clinical observations
and patient history.
Nucleic Acid Amplification test (NAAT)performed on the
[employer] platform.
Imaging:
03/02/2025 MRI brain with and without contrast: no MRI evidence for acute infarct. Large region of encephalomalacia in the right temporal and occipital lobes consistent with a large chronic transcortical infarct. Moderate sized band of
encephalomalacia in the periventricular right frontal lobe and right basal ganglia consistent with a chronic hemorrhagic infarct or resolved hypertensive intraparenchymal hemorrhage. Mild volume loss in the left cerebral hemisphere and cerebellum.
Please see full dictation for additional detail.
03/03/2025 CXR (portable): heart is mildly enlarged. Moderate amount of focal perihilar ground glass opacity in the left upper lobe, which appears to have increased compared with the prior radiographic examinations.
Assessment / Plan
Encephalopathy of unclear etiology
Leukocytosis
Elevated CRP
A-fib
Hx CVA
HTN
Seizure disorder
BPH
Recommendations:
Etiology of current encephalopathy is not clear, although history of prior general confusion before admission raises the specter of possible HSV or VZV encephalitis. Other etiologies include West Nile virus, or possible tickborne illness.
Begin acyclovir 800 mg IV q.8 hours. Patient is for lumbar puncture later today via Interventional Radiology. Ordered CSF studies reviewed.
Check West Nile serology.
Await CSF studies.
Monitor white count and temperature curve, along with mental status.
[2025-03-03 13:35] LABS: Syphilis/T. pallidum Ab Reflex Negative (Negative)
[2025-03-03] MEDS: THIAMINE INJECTION 100 MG IV (15:07)
[2025-03-03] MEDS: ZOVIRAX INJECTION 266 MG IV ×2 (15:07→23:08)
[2025-03-03] MEDS: LR 1000 IV (17:49)
[2025-03-03] MEDS: LOPRESSOR 5 MG IV (17:49)
--- NOTE | 2025-03-03 17:53 | PTCARENOTE ---
Dr. Garcia and Stephanie [facility] DEGREASER made aware that patients BP is 169/115 HR is 99 in a fib. IV Lopressor ordered and given. Care ongoing.
--- NOTE | 2025-03-03 19:35 | PTCARENOTE ---
Patient mumbling words, but words do not make sense. Unable to follow commands. Neuro checks and NIH completed per order. See 'worklist' for documentation. B/L hand mitts in place. On 4L NC with SpO2 92%. A fib on the monitor. Pederson draining yellow
urine. Strict NPO. IVF running per order. updated on plan of care. Bed alarm on and audible. Call argueta within reach, bed in lowest position, and bed of wheels locked.
[2025-03-03] MEDS: FLOMAX PO (21:05)
[2025-03-03] MEDS: PROSCAR PO (21:05)
--- NOTE | 2025-03-03 21:52 | PTCARENOTE ---
Assumed care of Pt from clifford RN. neuro checks and NIH preformed as ordered. Pt opening eyes spontaneously, engaging in confused conversation, obeying simple commands. b/l pupils 3mm and brisk. tracking. NIH scoring a 15 at start of shift
assessment. Pt on 2L 02 satting 94%. b/l mitts present per order. mccauley draining yellow urine. assessment as documented. call light in reach.
[2025-03-04] VITALS (28 sets, daily range): BP systolic 88–171; BP diastolic 79–117; BMI 30.3
[2025-03-04] MEDS: UNASYN IV ×4 (05:22→21:01)
[2025-03-04 05:28] LABS: Hematocrit 43.7 % (39.0-52.0); Hemoglobin 14.3 g/dL (13.0-18.0); Mean Corp Hgb Conc. 32.7 g/dL (33.0-37.0); Mean Corpuscular Volume 69.4 fL (80.0-94.0)
[2025-03-04 05:29] LABS: Platelet Count 152 10^3/uL (130-400); Red Cell Dist. Width 17.9 % (11.5-14.5)
[2025-03-04 05:51] LABS: Blood Urea Nitrogen 20 mg/dl (9-20); Calcium 8.9 mg/dl (8.4-10.2); Carbon Dioxide 28 mmol/L (22-30); Chloride 107 mmol/L (98-107); Estimated Creatinine Clearance 114 ml/min; Glucose 109 mg/dl (70-99); Potassium 3.5 mmol/L (3.5-5.1); Sodium 141 mmol/L (135-145); eGFR > 60.00
--- NOTE | 2025-03-04 07:04 | DOWNTIME ---
There was a [employer] Downtime on 03/04/2025 from 0100 to 03/04/2025 at 0235. Downtime documentation of patient's care, including medication administrations, has been reconciled in the electronic record per guidelines. Refer to the
patient's paper chart under the miscellaneous tab to see printed paper medication records and downtime forms.
[2025-03-04] MEDS: ELIQUIS PO ×2 (07:50→19:19)
[2025-03-04] MEDS: CRESTOR PO (07:50)
[2025-03-04] MEDS: COZAAR PO (07:50)
[2025-03-04] MEDS: LEXAPRO PO (07:50)
[2025-03-04] MEDS: METAMUCIL, KONSYL PO (07:50)
--- NOTE | 2025-03-04 08:01 | EEG.RPT ---
Electroencephalogram Report
Recording
Date of EE03/03/25
Type of EEG: Routine
Length of EEG recordin minutes
Done with Video Recording: Yes
Patient Status: Inpatient
Recording Conditions: Awake and Drowsy
Hyperventilation Performed: No
Photic Stimulation Performed: Yes
Report
Greater THAN 1 HOUR EEG REPORT
EEG INTERPRETATION:
Likely unremarkable EEG for age
CLINICAL CORRELATION:
This study was unremarkable.
A normal EEG does not rule out a diagnosis of epilepsy. If clinical suspicion for seizure persists, a prolonged recording may be warranted. In comparison with the study performed the day before, this study suggests improved cortical function.
Clinical correlation is advised.
METHODS:
A 21 channel digitized electroencephalogram (EEG) was performed using the 10/20 international system of electrode placement and one-lead of ECG recorded. The [employer] quantitative review system was utilized.
ELECTROENCEPHALOGRAPHER IMPRESSION(S):
Quality of study
Good
Background
There was an unremarkable anterior-posterior voltage gradient of alpha frequency.
With eye opening the background activity changed to a low voltage mixture of frequencies.
There were no significant asymmetries of background activity noted.
Sleep
Drowsiness present
Photic Stimulation
No driving
ECG
Normal sinus rhythm
[2025-03-04] MEDS: ZOVIRAX INJECTION 266 MG IV ×3 (08:16→22:20)
[2025-03-04] MEDS: LASIX 20 MG IV (08:17)
[2025-03-04] MEDS: DEPACON 60 MG IV ×2 (08:17→19:21)
[2025-03-04] MEDS: THIAMINE INJECTION 100 MG IV (08:17)
--- NOTE | 2025-03-04 09:17 | W.PN.HOSP.TC ---
Today's Communication/Plan
-
LP today
Continue with Unasyn and continue with antiviral per ID
Continue with IV Lasix check an echo
Continue with IV fluids
Assessment / Plan
Assessment / Plan
Change in mental status
Presented with symptoms of weakness confusion for a week
Postadmission: 03/02 he had a breakthrough seizures. No history of witnessed seizures at home.
MRI of the brain showed no acute infarct.
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
His petechial rash in the lower extremity and is present to Lyme serology positive. He had no fever and admission normal white count. Check CSF Lyme serology. findings raises concern for an infectious pathology. ID following await diagnostic
lumbar puncture.
He has a bilateral diffuse reticulonodular marking-with small pleural effusion raises more concern for diffuse pulmonary edema than pneumonia.
Neurology following-ongoing continued neurological workup.
Patient with history of previous stroke and seizures
Had a breakthrough seizure
Remains cognitively impaired-unclear if postictal encephalopathy or underlying seizures. Had EEG however longer yesterday and according to neurology no seizure activity. prolonged EEG 03/02 showed diffuse slowing
Continue with valproic acid and as needed diazepam for now.
Bilateral pulmonary reticulonodular increased [id number] also showed small bilateral pleural effusion including fluid in the fissures and indistinctness of the central pulmonary vasculature or raising concern for pulm edema.
Troponins does not support acute coronary syndrome nor EKG
Continue with IV Lasix
Cardiology following
Echo will be obtained
Left upper new pulmonary infiltrate compared to admission chest x-ray
Patient had a seizure yesterday and this raises concern for aspiration pneumonitis/pneumonia. With elevated white count and fever started on Unasyn. No further fevers and normalized white count
History of stroke and A-fib
On Eliquis
Patient could not get as Eliquis due to his mental status. After LP will switch to Lovenox till able to take p.o. meds
Primary hypertension
Continue with losartan
BPH on medication
Acute urinary retention
Continue with this medication. Continue Pederson catheter in due to the large volume retention and currently ongoing acute neurological issues.
Discussed with neurology and cardiology at bedside.
Discussed with RN
Total time spent on today's encounter was 52 minutes which included time spent in counseling the patient/family regarding diagnosis and treatment plan as listed above, goals of care, and symptom management. Case was discussed with nursing staff,
specialists, and care coordinators/case management. All labs and imaging personally reviewed by me. Remainder the time spent in detailed review of previous records, lab data, imaging, and other medical provider documentation.
Anticipated Discharge: > 48 hours
Subjective/Interval History
-
Date of Service: March 04, 2025
Patient remained encephalopathic.
Opens eyes to painful stimuli. Opens eyes spontaneously but not necessarily to commands. His hearing aids are not in.
Despite speaking in loud voice he is not able to answer any questions today.
He seems to have Amadou-Douglass breathing.
Objective Data
-
Labs:
Laboratory Results
03/04/25 03/04/25
04:40 05:19
WBC 8.6
Hgb 14.3
Hct 43.7
Plt Count 152
Sodium Cancelled 141
Potassium Cancelled 3.5
Chloride Cancelled 107
Carbon Dioxide Cancelled 28
BUN Cancelled 20
Creatinine Cancelled 0.6 L
Glucose Cancelled 109 H
Calcium Cancelled 8.9
Vital Signs:
Vital Signs
Temp Pulse Resp BP Pulse Ox
97.6 F 89 31 154/89 85
03/04/25 07:18 03/04/25 08:17 03/04/25 06:00 03/04/25 08:17 03/04/25 06:00
I&O
03/03/25 03/04/25 03/05/25
06:59 06:59 06:59
Intake Total 780 / 780 188 / 188
Output Total 3750 / 3750
Balance 780 / 780 -1863 / -1863
Physical Exam
-
General: No Apparent Distress
Respiratory: Non Labored Respirations and Other ([place] stoke breathing evident); Negative Accessory Resp Muscle Use
Cardiac: Regular Rhythm and S1/S2; Negative Murmur
GI: Soft and Nondistended
Genito-urinary: Clear Urine and Pederson
Neuro: Negative Awake, Alert, Tremors or Facial Droop
Data Reviewed
-
Labs: Labs Reviewed by me
--- NOTE | 2025-03-04 09:21 | W.PN.CD ---
Today's Communication / Plan
-
Continue daily IV diuresis
Echo today
Resume anticoagulation after lumbar puncture
Impression / Plan
-
I/P: 74M with MCA CVA (2018), permanent atrial fibrillation (on apixaban), hypertension, hypercholesterolemia, aortic atheroma, and seizure disorder who presented with change in mental status. Cardiology consulted for pulmonary edema on CXR.
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
Change in mental status, severe, requiring hospitalization
- Lower extremity rash with Lyme screen presump positive, sent out for Western blot
- No acute infarct on MRI
- ESR 4 and CRP 24.40, no leukocytosis on admission, but now febrile with leukocytosis overnight
- LP per primary service
Pulmonary edema
- Pulmonary edema on CXR, proBNP 1440 (no comparison, permanent afib), and mild hypoxemia
- Diuresis with intravenous furosemide, this requires intensive monitoring
- Echocardiogram today
- Trend daily weight, I/O, and BMP with diuresis
Abnormal troponin, nonischemic myocardial injury in the setting of pulmonary edema
- Peak troponin 0.062
- He is confused on exam, not complaining of chest pain
- EKG does not demonstrate acute ischemia
Permanent atrial fibrillation
- Rate controlled without AV mic agents
- Oral Anticoagulation: Apixaban, 5 mg twice daily, unclear if he has had missed doses
- [id number]: score at least 5 (HTN, prior Stroke/TIA, Vascular disease, age 65-74)
- Resume AC after LP
Aortic atheroma, only tolerates rosuvastatin 5 mg once weekly, LDL at goal
Seizure disorder
Prediabetes
Prior CVA, right MCA with M1 occlusion, 2018
SUBJECTIVE: Patient is somnolent. Awakens to physical pain.
Physical Exam
Vital Signs/Labs
Vital Signs
Temp Pulse Resp BP Pulse Ox
97.6 F 89 31 154/89 85
03/04/25 07:18 03/04/25 08:17 03/04/25 06:00 03/04/25 08:17 03/04/25 06:00
03/03/25 03/04/25 03/05/25
06:59 06:59 06:59
Actual Weight 195 lb 12.328 oz 193 lb 2 oz
03/04/25 04:40
03/04/25 05:19
PT 12.8 Sec (11.4-14.6) 03/03/25 11:26
INR 0.94 03/03/25 11:26
Magnesium 2.0 mg/dl (1.6-2.3) 03/02/25 21:45
Triglycerides 199 mg/dl (10-149) H 03/02/25 05:57
LDL Cholesterol, Calc 46 mg/dl 03/02/25 05:57
VLDL Cholesterol, Calc 39 mg/dl (0-30) H 03/02/25 05:57
HDL Cholesterol 35 mg/dl 03/02/25 05:57
03/02/25
05:57
Med-W-Uqpddddgkuy Pept 1440
LAB Results
03/02/25 03/02/25 03/03/25
00:29 21:45 04:29
Troponin I 0.017 0.062 H* 0.058 H*
Physical Exam
Constitutional: Other (Somnolent)
Cardiovascular: Pedal edema is absent, Rhythm/rate is irregular, S1S2 is normal and Murmur/rub/gallop absent
Respiratory: Respiratory effort normal
Data Reviewed
-
Date of Service: March 04, 2025
Medical Decision Making: Reviewed Test Results, Independent Historian Assessment, Test Interpretation and Review of Case with other Provider
EKG: Tracing Personally Visualized and interpreted
Labs: Labs Reviewed by me
--- NOTE | 2025-03-04 09:37 | W.PN.ID1 ---
Date of Service
Date of Service: March 04, 2025
Today's Communication
Continue antibiotics. Await LP.
Assessment / Plan
Encephalopathy of unclear etiology
Leukocytosis
Elevated CRP
A-fib
Hx CVA
HTN
Seizure disorder
BPH
Recommendations:
Etiology of current encephalopathy is not clear, although history of prior general confusion before admission raises the specter of possible HSV or VZV encephalitis. Other etiologies include West Nile virus, or possible tickborne illness.
Continue acyclovir 800 mg IV q.8 hours. Patient is for lumbar puncture later today via Interventional Radiology. Ordered CSF studies reviewed.
Check West Nile serology.
Await CSF studies.
Monitor white count and temperature curve, along with mental status. Prior leukocytosis resolved.
Further recommendations as additional data is returned.
����������������������������������������������������������
Chief Complaint
-: Other (Encephalopathy)
Subjective / Review of Systems
Patient seen and examined. Remains encephalopathic
Review of Systems: No Fever
Vital Signs / Physical Exam
Vital Signs
Vital Signs
Temp Pulse Resp BP Pulse Ox
97.6 F 89 31 154/89 85
03/04/25 07:18 03/04/25 08:17 03/04/25 06:00 03/04/25 08:17 03/04/25 06:00
Physical Exam
Constitutional: Comfortable, Acutely Ill and Non-toxic
Eyes: Sclera Anicteric
Cardiovascular: S1/S2; Negative S3/S4
Pulmonary: Non Labored
Gastrointestinal: Soft, Non Tender and Non Distended
Neurological: Other (Arousable; responsive to voice and touch.); Negative Meningeal Signs (No nuchal rigidity)
Psychological: Confused
Objective Data
Lab Data
Lab Results
03/04/25 04:40
03/04/25 05:19
ESR 4 mm/hour (0-20) 03/02/25 05:57
PT 12.8 Sec (11.4-14.6) 03/03/25 11:26
INR 0.94 03/03/25 11:26
Estimated Creat Clear 114 ml/min 03/04/25 05:19
Lactic Acid 1.5 mmol/L (0.7-2.0) 03/02/25 21:45
Total Bilirubin 0.5 mg/dl (0.2-1.3) 03/02/25 00:29
AST 108 U/L (17-59) H 03/02/25 00:29
ALT 50 U/L (0-50) 03/02/25 00:29
Alkaline Phosphatase 71 U/L (38-126) 03/02/25 00:29
C-Reactive Protein 22.40 mg/L (0.0-10.00) H 03/02/25 05:57
Most recent labs reviewed.
Micro Results:
03/02/25 05:57 Influenza Types A & B (FABRIZIO) - Final
Nasal Swab Negative for Influenza A & B, NAAT
Negative results must be combined with clinical observations
and patient history.
Nucleic Acid Amplification test (NAAT)performed on the
[employer] NOW platform.
Imaging:
03/02/2025 MRI brain with and without contrast: no MRI evidence for acute infarct. Large region of encephalomalacia in the right temporal and occipital lobes consistent with a large chronic transcortical infarct. Moderate sized band of
encephalomalacia in the periventricular right frontal lobe and right basal ganglia consistent with a chronic hemorrhagic infarct or resolved hypertensive intraparenchymal hemorrhage. Mild volume loss in the left cerebral hemisphere and cerebellum.
Please see full dictation for additional detail.
03/03/2025 CXR (portable): heart is mildly enlarged. Moderate amount of focal perihilar ground glass opacity in the left upper lobe, which appears to have increased compared with the prior radiographic examinations.
Care Review
Plan reviewed with: Physician (Hospitalist)
--- NOTE | 2025-03-04 10:35 | PTOTSP ---
Speech Therapy Evaluation:
Pt with acute on chronic risk factors of dysphagia including hx of R MCA CVA, acutely compounded by altered mental status in the setting of seizure vs infectious etiology. Pt with no oral awareness of trials of this date and PO d/c d/t/ safety
concerns. Current YOVANNY unsupportive of oral intake at this time
Recommend:
1. Strict NPO
2. Meds non-oral
3. Not appropriate for ARHP at this time
4. [place] to closely follow to assess candidacy for diet initiation. Suspect improvement as mentation improves.
[2025-03-04] MEDS: LR 1000 IV (10:50)
--- NOTE | 2025-03-04 13:16 | CM ---
Patient seen at bedside in IMU with also present. patient remains on restraints. Patient family considering options. Patient indicated that she was considering SNF options but family was hopeful that patient would recover as he had done
previously after stay at [facility] 6 years ago. CM will continue to follow for discharge planning needs.
Plan; SNF pending medical treatment plan.
--- NOTE | 2025-03-04 15:11 | W.PN.NEURO.1 ---
Addendum entered and electronically signed by Angelo Salas MD 03/04/25 16:05:
Studies reviewed.
I have personally examined the patient. I reviewed and agree with the CAPITAL EQUIPMENT SPECIALIST's Note.
My addenda:
Lethargic. Resists eye opening bilaterally equally. No acute distress.
Speech mute.
Follows no requests. No tremor.
No Doll's eyes.
Facial movements full and symmetric. Hearing intact to normal conversational volume.
Normal UE movements bilaterally.
Neck: full ROM.
Chest: no dyspnea
Heart: no JVD
Ext: (-) Clubbing, (-) Cyanosis, (-) Edema
IMPRESSIONS/RECOMMENDATIONS:
Abrupt onset of change in mental status in a patient with prior history of large right temporal and occipital stroke and recurrent seizure.
Unclear if the patient's current symptomatology is due to toxic metabolic encephalopathy unrelated to the patient appearing to have congestive heart failure. The possibility of meningitis is lower based on the MRI of brain not demonstrating this
issue, however, not completely ruled out
Check lumbar puncture using interventional radiology, appreciate their assistance
Continue valproic acid at 1000 mg twice a day by IV, consider change to alternative
Check blood work for potential causes
When possible, restart apixaban
Provide thiamine
Will follow
Original Note:
Today's Communication / Plan
-
.
Neuro Assessment/Plan
Assessment
IMPRESSIONS/RECOMMENDATIONS:
Abrupt onset of change in mental status in a patient with prior history of large right temporal and occipital stroke and recurrent seizure.
Unclear if the patient's current symptomatology is due to toxic metabolic encephalopathy related to the patient appearing to have congestive heart failure. The possibility of meningitis is lower based on the MRI of brain not demonstrating this
issue, however, not completely ruled out.
Brain MRI:
1. No MRI evidence for acute infarct.
2. Large region of encephalomalacia in the right temporal and occipital lobes consistent with a large chronic transcortical infarct (partially hemorrhagic).
3. Moderate-sized band of encephalomalacia in the periventricular right frontal lobe and right basal ganglia consistent with a chronic hemorrhagic infarct (or resolved hypertensive intraparenchymal hemorrhage).
4. Mild volume loss in the left cerebral hemisphere and cerebellum.
Head CT:
1. No acute intracranial abnormalities appreciated.
2. Old infarct within the territory of the right MCA area of suspected acute infarct appreciated.
3. Cerebral atrophy and small vessel ischemic change, also stable compared to prior CT.
EEG 03/02/25: This study was suggestive of diffuse cortical dysfunction without focal abnormality. No seizures were recorded.
EEG 03/04/25: Likely unremarkable EEG for age.
Plan
-LP pending.
-continue Valproic Acid 1000 mg BID
-seizure precautions
-Provide IV thiamine replacement
-continue Eliquis and statin therapy for secondary stroke prevention when possible
Subjective/Objective
Subjective Data
Date of Service: March 04, 2025
Patient is obtunded this morning with Yusra-snell breathing pattern.
Objective Data
Vital Signs
Temp Pulse Resp BP Pulse Ox
98.4 F 98 31 161/112 90
03/04/25 11:38 03/04/25 11:00 03/04/25 11:00 03/04/25 11:00 03/04/25 11:00
Lab Results
03/04/25 04:40
03/04/25 05:19
PT 12.8 Sec (11.4-14.6) 03/03/25 11:26
INR 0.94 03/03/25 11:26
Sodium 141 mmol/L (135-145) 03/04/25 05:19
Potassium 3.5 mmol/L (3.5-5.1) 03/04/25 05:19
BUN 20 mg/dl (9-20) 03/04/25 05:19
Glucose 109 mg/dl (70-99) H 03/04/25 05:19
Calcium 8.9 mg/dl (8.4-10.2) 03/04/25 05:19
Vtx-Q-Qauiyxapttn Pept 1440 pg/ml 03/02/25 05:57
LDL Cholesterol, Calc 46 mg/dl 03/02/25 05:57
Vitamin B12 627 pg/ml (239-931) 03/02/25 05:57
Ur Buprenorphine Negative (Negative) 03/02/25 02:05
Patient Allergies
No Known Allergies Allergy (Unverified 09/19/21 06:45)
Review of Systems
-
Unable to obtain full review of systems at this time due to: Acuity
Physical Exam
-
General: Wearing Oxygen
Eyes: PERRLA and Other (resists eye opening bilaterally)
HEENT: Normocephalic and Atraumatic
Respiratory: Other (Yusra snell breathing pattern)
Extremities: No Clubbing, No Cyanosis and No Edema
Extended Neurological Exam
Attention Span & Concentration: Unresponsive to Verbal Stimuli and Other (obtunded, doesn't follow any commands or respond verbally)
Memory: Unable to Assess
Tremor: Hand Tremor Absent and Head Tremor Absent
Involuntary Movement: None
Speech: Mute
Cranial Nerve II: Left Eye: Pupillary Reactivity Unremarkable, Pupillary Size Unremarkable and Unable to Assess Visual [place]
Cranial Nerve II: Right Eye: Pupillary Reactivity Unremarkable, Pupillary Size Unremarkable and Unable to Assess Visual [place]
Cranial Nerves III, IV, : Extraocular Movement: Unable to Assess (no apparent gaze deviation)
Cranial Nerve V: Facial Sensation: Unable to Assess
Cranial Nerve VII: Facial Symmetry: Normal Facial Symmetry
Cranial Nerve VIII: Hearing: Unable to Assess
Cranial Nerves IX, X: Palate Movement: Unable to Assess
Cranial Nerve XI: Shoulder Shrug: Unable to Assess
Cranial Nerve XII: Tongue Protusion: Unable to Assess
Muscle Strength, Overall: Unable to Assess (withdrawals in all extremities to touch)
Muscle Bulk & Tone: Bulk Unremarkable and Tone Unremarkable
Pronator Drift: Unable to Assess
Deep Tendon Reflexes: Unremarkable Throughout
Cold Sensation: Unable to Assess
Vibration Sensation: Unable to Assess
Touch Sensation: Unable to Assess
Coordination: Unable to Assess
Babinski Sign: Absent Bilaterally
Gait & Station: Unable to Assess
Data Reviewed
-
CT Head: Report Reviewed and Image Reviewed
MRI Head: Report Reviewed and Image Reviewed
EEG: Report Reviewed
Labs: Report Reviewed
Reviewed with: Physician
Medications
-
Active Medications
Generic Name Dose Route Start Last Admin
Trade Name Freq PRN Reason Stop Dose Admin
Acetaminophen 650 mg 03/02/25 07:48
Acetaminophen 325 Mg Tablet PO 03/30/25 07:47
Q4HPRN PRN
mild pain/CAI/temp> 100.4F
Acetaminophen 650 mg 03/03/25 10:02
Acetaminophen 650 Mg Rectal Suppository RECTAL 03/31/25 10:01
Q4HPRN PRN
pain/fever >100.4
Albuterol/Ipratropium 3 ml 03/02/25 07:48
Ipratropium 0.5/Albuterol 3 Mg (3 Ml Ampul) INH
R Q4HPRN PRN
shortness of breath
Protocol
Apixaban 5 mg 03/02/25 08:00 03/04/25 07:50
Apixaban (Eliquis) 5 Mg Tablet PO 03/30/25 07:59 Not Given
BID LEIA
Bisacodyl 10 mg 03/02/25 07:48
Bisacodyl 10 Mg Rectal Suppository RECTAL 03/30/25 07:47
H15ISDM PRN
constipation
Escitalopram Oxalate 20 mg 03/02/25 08:00 03/04/25 07:50
Escitalopram 20 Mg Tablet PO 03/30/25 07:59 Not Given
DAILY LEIA
Finasteride 5 mg 03/02/25 22:00 03/03/25 21:05
Finasteride 5 Mg Tablet PO 03/30/25 21:59 Not Given
HS LEIA
Furosemide 20 mg 03/02/25 17:00 03/04/25 08:17
Furosemide 20 Mg (10 Mg/Ml) 2 Ml Vial IV 03/30/25 16:59 20 mg
DAILY LEIA Administration
Valproate Sodium 1,000 mg/ 60 mls @ 60 mls/hr 03/02/25 20:00 03/04/25 08:17
Sodium Chloride IV 03/30/25 19:59 60 mls
Q12H LEIA Administration
Ampicillin Sodium/Sulbactam 60 mls @ 120 mls/hr 03/03/25 10:00 03/04/25 10:50
Sodium 1.5 gm/ Sodium Chloride IV 60 mls
Q6H LEIA Administration
Acyclovir Sodium 800 mg/ 266 mls @ 250 mls/hr 03/03/25 15:00 03/04/25 15:02
Sodium Chloride IV 03/13/25 14:59 266 mls
Q8H LEIA Administration
Lactated Ringer's 1,000 mls @ 60 mls/hr 03/03/25 16:36 03/04/25 10:50
Lr IV 1,000 mls
.[id number] LEIA Administration
Losartan Potassium 100 mg 03/02/25 08:00 03/04/25 07:50
Losartan 100 Mg Tablet PO 03/30/25 07:59 Not Given
DAILY LEIA
Ondansetron HCl 4 mg 03/02/25 07:48 03/02/25 10:32
Ondansetron 4 Mg/2 Ml Vial IV 03/30/25 07:47 4 mg
Q6HPRN PRN Administration
nausea and vomiting
Polyethylene Glycol 17 grams 03/02/25 07:48
Polyethylene Glycol Powder 17 Grams Packet PO 03/30/25 07:47
DAILYPRN PRN
constipation
Psyllium Hydrophilic Mucilloid 1 packet 03/02/25 08:00 03/04/25 07:50
Psyllium Packet PO 03/30/25 07:59 Not Given
DAILY LEIA
Rosuvastatin Calcium 5 mg 03/04/25 08:00 03/04/25 07:50
Rosuvastatin (Crestor) 5 Mg Tablet PO 04/01/25 07:59 Not Given
WE LEIA
Senna/Docusate Sodium 1 tablet 03/02/25 07:48
Docusate W/Senna (Karen-Colace) Tablet PO 03/30/25 07:47
BIDPRN PRN
constipation
Sodium Chloride 0 flush 03/02/25 17:00
Sodium Chloride 0.9% (Flush) Syringe IV 03/30/25 16:59
PER PROTOCOL LEIA
Tamsulosin HCl 0.4 mg 03/02/25 22:00 03/03/25 21:05
Tamsulosin 0.4 Mg Capsule PO 03/30/25 21:59 Not Given
HS LEIA
Thiamine HCl 100 mg 03/03/25 15:00 03/04/25 08:17
Thiamine (100 Mg/Ml) 2 Ml Vial IV 03/06/25 14:59 100 mg
DAILY LEIA Administration
Home Medications
�Medication �Instructions �Recorded
acetaminophen 500 mg tablet 1,000 mg PO Q6HPRN PRN mild pain 07/11/19
(Tylenol Extra Strength)
alfuzosin 10 mg tablet,extended 10 mg PO HS Urinary Issue 07/11/19
release 24 hr (Uroxatral)
apixaban 5 mg tablet (Eliquis) 5 mg PO BID Blood Clot 07/11/19
Prevention/Tx
escitalopram oxalate 20 mg tablet 20 mg PO DAILY depression/anxiety 07/11/19
finasteride 5 mg tablet 5 mg PO HS Urinary Issue 07/11/19
psyllium husk 3.4 gram oral powder 1 packet PO DAILY Constipation 07/11/19
packet (Metamucil Fiber
(aspartame))
rosuvastatin 5 mg tablet 5 mg PO WE cholesterol 07/11/19
levetiracetam 500 mg tablet 1,000 mg (2 x 500 mg) PO BID #120 07/13/19
tabs
losartan 100 mg tablet 100 mg PO DAILY Blood Pressure 08/21/23
--- NOTE | 2025-03-04 16:11 | PTCARENOTE ---
A male visitor arrived today to visit with pt. He immediately asked for the nurse and started demanding private health information. RN informed him that the pt's is the only person who can receive info and that he could contact her. He became
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 RN again stated that no information would be given. He became increasingly
upset by this and repeated efforts to get private patient info. RN notified Mechelle Stockton, from [facility] of the issue and requested she come to speak to this man but he then quickly left the floor. RN notified pt's who was upset as she
had told the restorationism members that she only wanted family to visit and that this man had come to the hospital a few days ago trying to get info then as well. She was very upset by this. She requested that he be made confidential and that only family
visit. Note was placed on pt's door for visitors to check in with nurse before entering room.
--- NOTE | 2025-03-04 16:31 | PTCARENOTE ---
Pt transported to [facility] for lumbar puncture. IR RN reports they were able to obtain 8ml of CSF as pt did becom restless towards the end of the procedure. remains in a fib.
[2025-03-04 17:38] LABS: CSF Color Colorless; Red Cell Count/CSF 5 mm^3
[2025-03-04 17:42] LABS: White Cell Count/CSF 73 mm^3 (0-5)
[2025-03-04 18:03] LABS: %Crenated RBC/CSF 0 %; Spinal Fluid Granulocytes 23 %; Spinal Fluid Lymphocytes 70 %; Spinal Fluid Macrophages 7 %
[2025-03-04] MEDS: PROSCAR PO (21:01)
[2025-03-04] MEDS: FLOMAX PO (21:01)
[2025-03-05] VITALS (27 sets, daily range): BP systolic 123–184; BP diastolic 75–145; BMI 29.9
[2025-03-05] MEDS: UNASYN IV (03:05)
[2025-03-05] MEDS: LR 1000 IV ×2 (03:10→19:44)
[2025-03-05 03:48] LABS: Hematocrit 48.7 % (39.0-52.0); Hemoglobin 15.2 g/dL (13.0-18.0); Mean Corp Hgb Conc. 31.2 g/dL (33.0-37.0); Mean Corpuscular Volume 72.4 fL (80.0-94.0); Platelet Count 203 10^3/uL (130-400); Red Cell Dist. Width 18.1 % (11.5-14.5)
[2025-03-05 03:59] LABS: Ammonia < 9 umol/L (9-30)
[2025-03-05 04:10] LABS: ALT (SGPT) 46 U/L (0-50); AST (SGOT) 69 U/L (17-59); Albumin 3.6 g/dl (3.5-5.0); Alkaline Phosphatase 68 U/L (38-126); Blood Urea Nitrogen 28 mg/dl (9-20); Calcium 8.9 mg/dl (8.4-10.2); Carbon Dioxide 31 mmol/L (22-30); Chloride 107 mmol/L (98-107); Estimated Creatinine Clearance 113 ml/min; Glucose 92 mg/dl (70-99); Potassium 3.6 mmol/L (3.5-5.1); Sodium 144 mmol/L (135-145); Total Protein 6.8 g/dl (6.3-8.2); eGFR > 60.00
[2025-03-05] MEDS: ZOVIRAX INJECTION 266 MG IV (06:05)
[2025-03-05] MEDS: ELIQUIS PO (08:07)
[2025-03-05] MEDS: COZAAR PO (08:07)
[2025-03-05] MEDS: METAMUCIL, KONSYL PO (08:08)
[2025-03-05] MEDS: LEXAPRO PO (08:08)
[2025-03-05] MEDS: LASIX 20 MG IV (08:15)
[2025-03-05] MEDS: THIAMINE INJECTION 100 MG IV (08:18)
[2025-03-05] MEDS: DEPACON 60 MG IV ×2 (08:21→19:44)
--- NOTE | 2025-03-05 09:32 | W.PN.HOSP.TC ---
Today's Communication/Plan
-
Continue with antiviral
Follow rest of the CSF studies including cultures
Obtain MRI of the brain with contrast
Speech therapy to see him today and see if he is able to take any p.o.'s
Assessment / Plan
Assessment / Plan
Change in mental status
Presented with symptoms of weakness confusion for a week
Postadmission: 03/02 he had a breakthrough seizures. No history of witnessed seizures at home.
MRI of the brain showed no acute infarct.
LP suggestive of encephalitis - LP with elevated white count predominantly lymphocytes and protein. Meningitis PCR panel negative. Await Lyme, VDRL, West Nile, fungal cultures.
His petechial rash in the lower extremity and Lyme serology presumptively positive. Check CSF Lyme serology. Consider starting of ceftriaxone.
He has a bilateral diffuse reticulonodular marking-with small pleural effusion raises more concern for diffuse pulmonary edema than pneumonia.
Check MRI of the brain without contrast with concern for encephalitis
Patient with history of previous stroke and seizures
Had a breakthrough seizure
Had EEG 1 hour longer yesterday and according to neurology no seizure activity. prolonged EEG 03/02 showed diffuse slowing
Continue with valproic acid and as needed diazepam for now.
Bilateral pulmonary reticulonodular increased [id number] also showed small bilateral pleural effusion including fluid in the fissures and indistinctness of the central pulmonary vasculature or raising concern for pulm edema.
Troponins does not support acute coronary syndrome nor EKG
Continue with IV Lasix-improved weight of 10 pounds. Wean oxygen as able.
Cardiology following
Echo technically difficult study due to patient's clinical status. EF of 60 to 65% no significant valvular disease.
Left upper new pulmonary infiltrate compared to admission chest x-ray
Patient had a seizure and this raises concern for aspiration pneumonitis/pneumonia. With elevated white count and fever started on Unasyn. No further fevers and normalized white count
History of stroke and A-fib
On Eliquis
With encephalitis will obtain an MRI brain with contrast prior to initiating full anticoagulation.
Primary hypertension
Continue with losartan when able to take p.o.
BPH on medication
Acute urinary retention
Continue with this medication. Continue Pederson catheter in due to the large volume retention and currently ongoing acute neurological issues.
Will start voiding trials once his cognitive status improved
Discussed with neurology, ID and cardiology today
Discussed with RN
Total time spent on today's encounter was 52 minutes which included time spent in counseling the patient/family regarding diagnosis and treatment plan as listed above, goals of care, and symptom management. Case was discussed with nursing staff,
specialists, and care coordinators/case management. All labs and imaging personally reviewed by me. Remainder the time spent in detailed review of previous records, lab data, imaging, and other medical provider documentation.
Anticipated Discharge: > 48 hours
Subjective/Interval History
-
Date of Service: March 05, 2025
Patient is showing improvement today.
He is alert. Oriented to self. He was able to converse. He knew he is hospital , he could tell me the year correctly.
He asked me why he is in the hospital and when he said seizure, ' oh , that will be my second seizure!'
He said he is hard of hearing .
He is feeling thirsty and hungry.
Denies CAI today
He is apporpriate in responses today
Objective Data
-
Labs:
Laboratory Results
03/05/25
03:31
WBC 7.5
Hgb 15.2
Hct 48.7
Plt Count 203 D
Sodium 144
Potassium 3.6
Chloride 107
Carbon Dioxide 31 H
BUN 28 H
Creatinine 0.6 L
Glucose 92
Calcium 8.9
Total Bilirubin 0.9
AST 69 H
ALT 46
Alkaline Phosphatase 68
Vital Signs:
Vital Signs
Temp Pulse Resp BP Pulse Ox
97.6 F 91 24 150/102 92
03/05/25 08:12 03/05/25 08:00 03/05/25 08:00 03/05/25 08:00 03/05/25 08:00
I&O
03/04/25 03/05/25 03/06/25
06:59 06:59 06:59
Intake Total 1886 / 1886 1070 / 1070
Output Total 3750 / 3750 2600 / 2600
Balance -1864 / -1864 -1530 / -1530
Physical Exam
-
General: Comfortable
Respiratory: Clear to Auscultation (anteriorly) and Non Labored Respirations; Negative Accessory Resp Muscle Use
Cardiac: S1/S2 and Irregular Rhythm; Negative Tachycardic
GI: Soft
Neuro: Awake, Alert and Oriented; Negative No Motor Deficits or Tremors
Psych: Confused; Negative Calm or Agitated
Data Reviewed
-
Labs: Labs Reviewed by me
[2025-03-05] MEDS: STERILE WATER FOR INJECTION 20 ML IV (11:42)
[2025-03-05] MEDS: FLUSH (NSS) 1 FLUSH IV ×2 (11:42→11:43)
[2025-03-05] MEDS: ROCEPHIN 2000 MG IV (11:42)
[2025-03-05] MEDS: COZAAR 100 MG PO (11:47)
--- NOTE | 2025-03-05 11:50 | W.PN.ID1 ---
Date of Service
Date of Service: March 05, 2025
Today's Communication
Continue ceftriaxone. Discontinue further acyclovir. See below�
Assessment / Plan
Encephalitis
Leukocytosis
Elevated CRP
A-fib
Hx CVA
HTN
Seizure disorder
BPH
Recommendations:
Lumbar puncture noted to be abnormal. Pleocytosis is suggestive of a viral etiology. Meningitis panel by PCR negative for HSV and VZV.
West Nile serology (serum, CSF) is pending.
Lyme screen presumptively positive. Western blot's are pending. Ceftriaxone has been initiated.
Will check CSF arbovirus panel.
Given negative CSF panel, D/C further acyclovir
Monitor white count and temperature curve, along with mental status. Prior leukocytosis resolved.
����������������������������������������������������������
Chief Complaint
-: Other (Encephalopathy)
Subjective / Review of Systems
Patient seen and examined.
Review of Systems: No Fever
Vital Signs / Physical Exam
Vital Signs
Vital Signs
Temp Pulse Resp BP Pulse Ox
97.6 F 95 18 182/91 94
03/05/25 08:12 03/05/25 11:00 03/05/25 11:00 03/05/25 11:00 03/05/25 11:00
Physical Exam
Constitutional: Comfortable, Acutely Ill and Non-toxic
Eyes: Sclera Anicteric
Cardiovascular: S1/S2; Negative S3/S4
Pulmonary: Non Labored; Negative Wheezes, Rales or Rhonchi
Gastrointestinal: Soft, Non Tender and Non Distended
Neurological: Other (Arousable; responsive to voice and touch.); Negative Meningeal Signs (No nuchal rigidity)
Psychological: Confused
Objective Data
Lab Data
Lab Results
03/05/25 03:31
03/05/25 03:31
ESR 4 mm/hour (0-20) 03/02/25 05:57
PT 12.8 Sec (11.4-14.6) 03/03/25 11:26
INR 0.94 03/03/25 11:26
Estimated Creat Clear 113 ml/min 03/05/25 03:31
Lactic Acid 1.5 mmol/L (0.7-2.0) 03/02/25 21:45
Total Bilirubin 0.9 mg/dl (0.2-1.3) 03/05/25 03:31
AST 69 U/L (17-59) H 03/05/25 03:31
ALT 46 U/L (0-50) 03/05/25 03:31
Alkaline Phosphatase 68 U/L (38-126) 03/05/25 03:31
C-Reactive Protein 22.40 mg/L (0.0-10.00) H 03/02/25 05:57
Most recent labs reviewed.
Micro Results:
CSF
03/04/25
16:10
CSF Appearance Clear
CSF Color Colorless
CSF WBC 73 H*
CSF RBC 5
CSF Granulocytes 23
CSF Lymphocytes 70
CSF Macrophages 7
CSF Glucose 41
CSF Total Protein 139 H
03/04/25 16:10 Meningitis/Encephalitis Panel (PCR) - Final
Csf
Escherichia coli K1 Not Detected
Haemophilus influenzae Not Detected
Listeria monocytogenes Not Detected
Neisseria meningitidis Not Detected
Cytomegalovirus (CMV) Not Detected
Streptococcus agalactiae Not Detected
Streptococcus pneumoniae Not Detected
Enterovirus Not Detected
Herpes simplex virus 1 Not Detected
Herpes simplex virus 2 Not Detected
Human herpesvirus 6 Not Detected
Human parechovirus Not Detected
Varicella zoster virus Not Detected
C. neoformans/gattii Not Detected
03/04/25 16:10 CSF Culture - Pending
Csf Gram Stain - Preliminary
03/04/25 16:10 Fungal Culture - Preliminary
Csf Culture in progress.
Positive cultures are reported as soon as detected.
Final report to follow in four to five weeks.
03/04/25 16:10 Acid Fast Bacilli Smear - Pending
Csf Acid Fast Bacilli Culture - Pending
03/02/25 05:57 Influenza Types A & B (FABRIZIO) - Final
Nasal Swab Negative for Influenza A & B, NAAT
Negative results must be combined with clinical observations
and patient history.
Nucleic Acid Amplification test (NAAT)performed on the
[employer] platform.
Imaging:
03/02/2025 MRI brain with and without contrast: no MRI evidence for acute infarct. Large region of encephalomalacia in the right temporal and occipital lobes consistent with a large chronic transcortical infarct. Moderate sized band of
encephalomalacia in the periventricular right frontal lobe and right basal ganglia consistent with a chronic hemorrhagic infarct or resolved hypertensive intraparenchymal hemorrhage. Mild volume loss in the left cerebral hemisphere and cerebellum.
Please see full dictation for additional detail.
03/03/2025 CXR (portable): heart is mildly enlarged. Moderate amount of focal perihilar ground glass opacity in the left upper lobe, which appears to have increased compared with the prior radiographic examinations.
Care Review
Plan reviewed with: Physician (Hospitalist)
--- NOTE | 2025-03-05 12:10 | PTCARENOTE ---
Assumed care at 0700. Oriented to self. Repeatedly says 'why am I here' and 'I need water.' Bilateral soft mitts in place d/t attempts to pull of heart monitor and oxygen. This RN asked during rounds if NIHSS could be discontinued which Dr. Salas
okay'd. at bedside, updated on plan.
[2025-03-05] MEDS: ELIQUIS 5 MG PO ×2 (12:53→19:44)
--- NOTE | 2025-03-05 14:10 | W.PN.CD ---
Today's Communication / Plan
-
transition to PO lasix
restart losartan and eliquis
Impression / Plan
-
I/P: 74M with MCA CVA (2018), permanent atrial fibrillation (on apixaban), hypertension, hypercholesterolemia, aortic atheroma, and seizure disorder who presented with change in mental status. Cardiology consulted for pulmonary edema on CXR.
Outpatient cotton washer: Dr. Humphrey
Change in mental status
- being evaluated by hospitalist and neurology
Pulmonary edema
- Pulmonary edema on CXR, proBNP 1440 (no comparison, permanent afib), and mild hypoxemia
- Echocardiogram 03/04: EF 60-65%, nl RV, no sig valve disease
-transition to lasix 20mg PO daily
HTN
-losartan 100mg daily restarted today
-trend BP: may need additional agent
Abnormal troponin, nonischemic myocardial injury in the setting of pulmonary edema
- Peak troponin 0.062
- He is confused on exam, not complaining of chest pain
- EKG does not demonstrate acute ischemia
Permanent atrial fibrillation
- Rate controlled without AV mic agents
- Oral Anticoagulation: Apixaban, 5 mg twice daily, restarted today
Aortic atheroma, only tolerates rosuvastatin 5 mg once weekly, LDL at goal
Seizure disorder
Prediabetes
Prior CVA, right MCA with M1 occlusion, 2017
Physical Exam
Vital Signs/Labs
Vital Signs
Temp Pulse Resp BP Pulse Ox
98.0 F 83 20 148/122 93
03/05/25 12:05 03/05/25 12:00 03/05/25 12:00 03/05/25 12:00 03/05/25 12:00
03/04/25 03/05/25 03/06/25
06:59 06:59 06:59
Actual Weight 87.6 kg 86.4 kg
03/05/25 03:31
03/05/25 03:31
PT 12.8 Sec (11.4-14.6) 03/03/25 11:26
INR 0.94 03/03/25 11:26
Magnesium 2.0 mg/dl (1.6-2.3) 03/02/25 21:45
Triglycerides 199 mg/dl (10-149) H 03/02/25 05:57
LDL Cholesterol, Calc 46 mg/dl 03/02/25 05:57
VLDL Cholesterol, Calc 39 mg/dl (0-30) H 03/02/25 05:57
HDL Cholesterol 35 mg/dl 03/02/25 05:57
03/02/25
05:57
Lsh-U-Cfwgpmokdxa Pept 1440
LAB Results
03/02/25 03/03/25
21:45 04:29
Troponin I 0.062 H* 0.058 H*
Physical Exam
Constitutional: No acute distress and Comfortable
EENT: Moist mucous membranes
Cardiovascular: Pedal edema is absent, JVD pressure is normal, Systolic murmur absent and Rhythm/rate is irregular
Respiratory: Respiratory effort normal and Lungs clear to auscul.
Data Reviewed
-
Date of Service: March 05, 2025
EKG: Other (Tele: A fib 80s)
Labs: Labs Reviewed by me
--- NOTE | 2025-03-05 14:51 | CM ---
Patient seen at bedside with patient in IMU. Patient continues to hope for patient to improve as he did last time he had a stroke and stated that patient recognized her today. Patient remains with restraints. Patient would like [facility]
vs SNF when medically appropriate if possible. CM will continue to follow for discharge planning needs.
Plan; SNF vs [facility]
[2025-03-05 15:44] LABS: Lyme Ab Western Blot IgG Positive (Negative); Lyme Ab Western Blot IgM Negative (Negative)
--- NOTE | 2025-03-05 15:53 | W.PN.NEURO.1 ---
Addendum entered and electronically signed by Angelo Salas MD 03/05/25 17:12:
Studies reviewed.
I have personally examined the patient. I reviewed and agree with the GRAIN SHOVELER's Note.
My addenda:
Lethargic, closes eyes after approximately 3 seconds. Resists eye opening bilaterally equally. No acute distress.
Speech dysarthric.
Follows some requests. No tremor.
No Doll's eyes.
Facial movements full and symmetric. Hearing intact to normal conversational volume.
Normal UE movements bilaterally.
Neck: full ROM.
Chest: no dyspnea
Heart: no JVD
Ext: (-) Clubbing, (-) Cyanosis, (-) Edema
IMPRESSIONS/RECOMMENDATIONS:
Abrupt onset of change in mental status in a patient with prior history of large right temporal and occipital stroke and recurrent seizure.
The possibility of encephalitis is now demonstrated
Continue valproic acid at 1000 mg twice a day by IV, consider change to alternative
Check blood work for potential causes
When possible, restart apixaban
Will follow
Original Note:
Today's Communication / Plan
-
.
Neuro Assessment/Plan
Assessment
IMPRESSIONS/RECOMMENDATIONS:
Abrupt onset of change in mental status in a patient with prior history of large right temporal and occipital stroke and recurrent seizure.
Abnormal CSF findings; WBC 73, protein 139 concerning for viral encephalitis vs meningitis.
Brain MRI:
1. No MRI evidence for acute infarct.
2. Large region of encephalomalacia in the right temporal and occipital lobes consistent with a large chronic transcortical infarct (partially hemorrhagic).
3. Moderate-sized band of encephalomalacia in the periventricular right frontal lobe and right basal ganglia consistent with a chronic hemorrhagic infarct (or resolved hypertensive intraparenchymal hemorrhage).
4. Mild volume loss in the left cerebral hemisphere and cerebellum.
Head CT:
1. No acute intracranial abnormalities appreciated.
2. Old infarct within the territory of the right MCA area of suspected acute infarct appreciated.
3. Cerebral atrophy and small vessel ischemic change, also stable compared to prior CT.
EEG 03/02/25: This study was suggestive of diffuse cortical dysfunction without focal abnormality. No seizures were recorded.
EEG 03/04/25: Likely unremarkable EEG for age.
Plan
-Repeat MRI brain w/ and w/o contrast pending for further evaluation.
-ID following.
-continue Valproic Acid 1000 mg BID
-seizure precautions
-Provide IV thiamine replacement
-continue Eliquis and statin therapy for secondary stroke prevention when possible
Subjective/Objective
Subjective Data
Date of Service: March 05, 2025
Patient is more alert today, interactive at times. Offers no complaints, is asking why he is here/how long he has been here.
Objective Data
Vital Signs
Temp Pulse Resp BP Pulse Ox
98.1 F 102 23 144/104 92
03/05/25 15:47 03/05/25 15:00 03/05/25 15:00 03/05/25 15:00 03/05/25 14:00
Lab Results
03/05/25 03:31
03/05/25 03:31
PT 12.8 Sec (11.4-14.6) 03/03/25 11:26
INR 0.94 03/03/25 11:26
Sodium 144 mmol/L (135-145) 03/05/25 03:31
Potassium 3.6 mmol/L (3.5-5.1) 03/05/25 03:31
BUN 28 mg/dl (9-20) H 03/05/25 03:31
Glucose 92 mg/dl (70-99) 03/05/25 03:31
Calcium 8.9 mg/dl (8.4-10.2) 03/05/25 03:31
Rcw-R-Rqmonuuiisz Pept 1440 pg/ml 03/02/25 05:57
LDL Cholesterol, Calc 46 mg/dl 03/02/25 05:57
Vitamin B12 627 pg/ml (239931) 03/02/25 05:57
Ur Buprenorphine Negative (Negative) 03/02/25 02:05
Patient Allergies
No Known Allergies Allergy (Unverified 09/19/21 06:45)
Review of Systems
-
Respiratory: Negative Trouble Breathing
Cardiac: Negative Chest Pain or Palpitations
Neuro: Speech Problem (reports dry mouth); Negative Dizzy, Headache, Weakness, Numbness, Ataxia or Tremors
Physical Exam
-
General: Wearing Oxygen
Eyes: No Ptosis and PERRLA
HEENT: Normocephalic and Atraumatic
Neck: Full Range of Motion
GI: Non-distended
Skin: Rash (red rash LLE>RLE)
Extremities: No Clubbing, No Cyanosis and No Edema
Psych: Confused
Extended Neurological Exam
Mood & Affect: Mood Unremarkable and Affect Unremarkable
Attention Span & Concentration: Lethargic and Closes Eyes after Stimulation
Memory: Reduced
Tremor: Hand Tremor Absent and Head Tremor Absent
Involuntary Movement: None
Speech: Dysarthric
Cranial Nerve II: Left Eye: Pupillary Reactivity Unremarkable, Pupillary Size Unremarkable and Visual [place] Grossly Intact
Cranial Nerve II: Right Eye: Pupillary Reactivity Unremarkable, Pupillary Size Unremarkable and Visual [place] Grossly Intact
Cranial Nerves III, IV, : Extraocular Movement: Extraocular Movement Full in all Directions
Cranial Nerve VII: Facial Symmetry: Normal Facial Symmetry
Cranial Nerve VIII: Hearing: Unremarkable Hearing to Normal Conversational Volume
Cranial Nerves IX, X: Palate Movement: Palate Elevation Symmetric
Cranial Nerve XI: Shoulder Shrug: Unremarkable
Cranial Nerve XII: Tongue Protusion: Midline
Muscle Strength, Overall: Reduced Throughout (BUE 4/5, BLE 3/5)
Pronator Drift: Drift in Left Upper Extremity, Drift in Right Upper Extremity, Drift in Left Lower Extremity and Drift in Right Lower Extremity
Coordination: Unable to Assess
Babinski Sign: Absent Bilaterally
Gait & Station: Unable to Assess
Data Reviewed
-
MRI Head: Report Reviewed and Image Reviewed
Medical Test Reports: Report Reviewed (CSF)
Reviewed with: Physician, Patient and Family
Medications
-
Active Medications
Generic Name Dose Route Start Last Admin
Trade Name Freq PRN Reason Stop Dose Admin
Acetaminophen 650 mg 03/02/25 07:48
Acetaminophen 325 Mg Tablet PO 03/30/25 07:47
Q4HPRN PRN
mild pain/CAI/temp> 100.4F
Acetaminophen 650 mg 03/03/25 10:02
Acetaminophen 650 Mg Rectal Suppository RECTAL 03/31/25 10:01
Q4HPRN PRN
pain/fever >100.4
Albuterol/Ipratropium 3 ml 03/02/25 07:48
Ipratropium 0.5/Albuterol 3 Mg (3 Ml Ampul) INH
R Q4HPRN PRN
shortness of breath
Protocol
Apixaban 5 mg 03/02/25 08:00 03/05/25 12:53
Apixaban (Eliquis) 5 Mg Tablet PO 03/30/25 07:59 5 mg
BID LEIA Administration
Bisacodyl 10 mg 03/02/25 07:48
Bisacodyl 10 Mg Rectal Suppository RECTAL 03/30/25 07:47
[id number] PRN
constipation
Ceftriaxone Sodium 2,000 mg 03/05/25 10:00 03/05/25 11:42
Ceftriaxone 2,000 Mg/20 Ml Vial IV 2,000 mg
Q24H LEIA Administration
Escitalopram Oxalate 20 mg 03/02/25 08:00 03/05/25 08:08
Escitalopram 20 Mg Tablet PO 03/30/25 07:59 Not Given
DAILY LEIA
Finasteride 5 mg 03/02/25 22:00 03/04/25 21:01
Finasteride 5 Mg Tablet PO 03/30/25 21:59 Not Given
HS LEIA
Furosemide 20 mg 03/06/25 08:00
Furosemide 20 Mg Tablet PO 04/03/25 07:59
DAILY LEIA
Hydralazine HCl 5 mg 03/05/25 15:05
Hydralazine 20 Mg/Ml Vial IV 04/02/25 15:04
Q6HPRN PRN
sbp>160 or dbp>100
Valproate Sodium 1,000 mg/ 60 mls @ 60 mls/hr 03/02/25 20:00 03/05/25 08:21
Sodium Chloride IV 03/30/25 19:59 60 mls
Q12H LEIA Administration
Lactated Ringer's 1,000 mls @ 60 mls/hr 03/03/25 16:36 03/05/25 03:10
Lr IV 1,000 mls
.[id number] LEIA Administration
Losartan Potassium 100 mg 03/02/25 08:00 03/05/25 11:47
Losartan 100 Mg Tablet PO 03/30/25 07:59 100 mg
DAILY LEIA Administration
Ondansetron HCl 4 mg 03/02/25 07:48 03/02/25 10:32
Ondansetron 4 Mg/2 Ml Vial IV 03/30/25 07:47 4 mg
Q6HPRN PRN Administration
nausea and vomiting
Polyethylene Glycol 17 grams 03/02/25 07:48
Polyethylene Glycol Powder 17 Grams Packet PO 03/30/25 07:47
DAILYPRN PRN
constipation
Psyllium Hydrophilic Mucilloid 1 packet 03/02/25 08:00 03/05/25 08:08
Psyllium Packet PO 03/30/25 07:59 Not Given
DAILY LEIA
Rosuvastatin Calcium 5 mg 03/04/25 08:00 03/04/25 07:50
Rosuvastatin (Crestor) 5 Mg Tablet PO 04/01/25 07:59 Not Given
WE LEIA
Senna/Docusate Sodium 1 tablet 03/02/25 07:48
Docusate W/Senna (Karen-Colace) Tablet PO 03/30/25 07:47
BIDPRN PRN
constipation
Sodium Chloride 0 flush 03/02/25 17:00 03/05/25 11:42
Sodium Chloride 0.9% (Flush) Syringe IV 03/30/25 16:59 1 flush
PER PROTOCOL LEIA Administration
Sodium Chloride 0 flush 03/05/25 11:00 03/05/25 11:43
0.9% Nacl Flush If Lactated Ringers Ivf Ordered IV 04/02/25 10:59 1 flush
DAILY@0900,1100 LEIA Administration
Sterile Water 20 ml 03/05/25 10:00 03/05/25 11:42
Sterile Water For Injection 20 Ml Vial IV 04/02/25 09:59 20 ml
Q24H LEIA Administration
Tamsulosin HCl 0.4 mg 03/02/25 22:00 03/04/25 21:01
Tamsulosin 0.4 Mg Capsule PO 03/30/25 21:59 Not Given
HS LEIA
Thiamine HCl 100 mg 03/03/25 15:00 03/05/25 08:18
Thiamine (100 Mg/Ml) 2 Ml Vial IV 03/06/25 14:59 100 mg
DAILY LEIA Administration
Home Medications
�Medication �Instructions �Recorded
acetaminophen 500 mg tablet 1,000 mg PO Q6HPRN PRN mild pain 07/11/19
(Tylenol Extra Strength)
alfuzosin 10 mg tablet,extended 10 mg PO HS Urinary Issue 07/11/19
release 24 hr (Uroxatral)
apixaban 5 mg tablet (Eliquis) 5 mg PO BID Blood Clot 07/11/19
Prevention/Tx
escitalopram oxalate 20 mg tablet 20 mg PO DAILY depression/anxiety 07/11/19
finasteride 5 mg tablet 5 mg PO HS Urinary Issue 07/11/19
psyllium husk 3.4 gram oral powder 1 packet PO DAILY Constipation 07/11/19
packet (Metamucil Fiber
(aspartame))
rosuvastatin 5 mg tablet 5 mg PO WE cholesterol 07/11/19
levetiracetam 500 mg tablet 1,000 mg (2 x 500 mg) PO BID #120 07/13/19
tabs
losartan 100 mg tablet 100 mg PO DAILY Blood Pressure 08/21/23
[2025-03-05] MEDS: APRESOLINE 5 MG IV (15:58)
--- NOTE | 2025-03-05 20:29 | PTCARENOTE ---
Pt received from dayshift RN after change of shift report. Pt is drowsy at times, opening eyes to verbal stimuli, following commands, engaging in confused conversation, answering yes and no appropriately. b/l pupils 3mm and reactive. Pt took HS Po
med crushed in puree per speech eval, no difficulty assessed when swallowing at times of administration . Q2t maintained. b/l mitts present per order. Pederson draining yellow urine. assessment as documented. call light in reach.
[2025-03-05] MEDS: PROSCAR 5 MG PO (21:04)
[2025-03-05] MEDS: FLOMAX 0.4 MG PO (21:04)
[2025-03-06] VITALS (23 sets, daily range): BP systolic 124–175; BP diastolic 76–118; PULSE 96–100; O2SAT 94–96; BMI 29.9
[2025-03-06] MEDS: APRESOLINE 5 MG IV ×2 (01:21→11:58)
[2025-03-06] MEDS: TYLENOL 650 MG PO ×2 (04:19→21:12)
[2025-03-06 04:57] LABS: Hematocrit 48.6 % (39.0-52.0); Hemoglobin 15.1 g/dL (13.0-18.0); Mean Corp Hgb Conc. 31.1 g/dL (33.0-37.0); Mean Corpuscular Volume 71.5 fL (80.0-94.0); Platelet Count 236 10^3/uL (130-400); Red Cell Dist. Width 18.3 % (11.5-14.5)
[2025-03-06 05:22] LABS: Blood Urea Nitrogen 25 mg/dl (9-20); Calcium 8.9 mg/dl (8.4-10.2); Carbon Dioxide 28 mmol/L (22-30); Chloride 107 mmol/L (98-107); Estimated Creatinine Clearance 113 ml/min; Glucose 104 mg/dl (70-99); Potassium 3.0 mmol/L (3.5-5.1); Sodium 143 mmol/L (135-145); eGFR > 60.00
[2025-03-06 05:25] LABS: Depakane 98.8 ug/ml (50.0-120.0)
[2025-03-06] MEDS: KCL 270 MEQ IV (06:27)
[2025-03-06] MEDS: LEXAPRO 20 MG PO (08:26)
[2025-03-06] MEDS: DEPACON 60 MG IV ×2 (08:26→20:01)
[2025-03-06] MEDS: METAMUCIL, KONSYL PO (08:26)
[2025-03-06] MEDS: THIAMINE INJECTION 100 MG IV (08:26)
[2025-03-06] MEDS: ELIQUIS 5 MG PO (08:27)
[2025-03-06] MEDS: LASIX 20 MG PO (08:27)
[2025-03-06] MEDS: COZAAR 100 MG PO (08:27)
--- NOTE | 2025-03-06 08:52 | W.PN.HOSP.TC ---
Today's Communication/Plan
-
CW Ceftriaxone till CSF Lyme resulted
Home meds resumed . Prn hydralazine for BP mx
Rpt CXR to follow on pulm edema
Resume IV fluids while NPO
CW IV Valproic acid per neuro for sz
Assessment / Plan
Assessment / Plan
Change in mental status
Presented with symptoms of weakness confusion for a week
Postadmission: 03/02 he had a breakthrough seizures. No history of witnessed seizures at home.
MRI of the brain with and without showed no acute infarct.
LP suggestive of encephalitis - LP with elevated white count predominantly lymphocytes and protein. Meningitis PCR panel negative. Await Lyme, VDRL, West Nile, fungal cultures.
His petechial rash in the lower extremity and Lyme serology presumptively positive but IgM came back neg and has IgG postivity suggestive of prior infection. Check CSF Lyme serology. Stop Ceftriaxone initiated for presumptive Lyme once CSF lyme
testing is neg
He has a bilateral diffuse reticulonodular marking-with small pleural effusion raises more concern for diffuse pulmonary edema than pneumonia.
Patient with history of previous stroke and seizures
Had a breakthrough seizure
Had EEG 1 hour 03/03 and according to neurology no seizure activity. prolonged EEG 03/02 showed diffuse slowing
Continue with valproic acid and as needed diazepam for now.
Bilateral pulmonary reticulonodular increased [id number] also showed small bilateral pleural effusion including fluid in the fissures and indistinctness of the central pulmonary vasculature or raising concern for pulm edema.
Troponins does not support acute coronary syndrome nor EKG
Continue with IV Lasix-improved weight of 9 pounds. Wean oxygen as able.
Cardiology following
Echo technically difficult study due to patient's clinical status. EF of 60 to 65% no significant valvular disease.
Repeat CXR to follow on pulm edema
Hypokalemia replete
Left upper new pulmonary infiltrate compared to admission chest x-ray
Patient had a seizure and this raises concern for aspiration pneumonitis/pneumonia. With elevated white count and fever started on Unasyn. No further fevers and normalized white count
History of stroke and A-fib
On Eliquis
MRI brain was with and without contrast showed no abnormal cerebral enhancement . Neuro ok to restart Eliquis.
Primary hypertension
Continue with losartan when able to take p.o.
BPH on medication
Acute urinary retention
Continue with this medication. Continue Pederson catheter in due to the large volume retention and currently ongoing acute neurological issues.
Will start voiding trials once his cognitive status improved
Discussed with RN
Remains NPO ;speech following
Left message to last evening
Total time spent on today's encounter was 52 minutes which included time spent in counseling the patient/family regarding diagnosis and treatment plan as listed above, goals of care, and symptom management. Case was discussed with nursing staff,
specialists, and care coordinators/case management. All labs and imaging personally reviewed by me. Remainder the time spent in detailed review of previous records, lab data, imaging, and other medical provider documentation.
Anticipated Discharge: > 48 hours
Subjective/Interval History
-
Date of Service: March 06, 2025
Patient sleepy but arousable, conversive and interactive.
' I am hard of hearing'
' I am told by nurse I have a spinal infection' ' however did not get this?'
' Why am i in these gloves , you take them off?'
' I know i am in [facility]'
Denies headache
Denies SOB
Hard to have conversation due to deafness
Objective Data
-
Labs:
Laboratory Results
03/06/25
04:35
WBC 6.6
Hgb 15.1
Hct 48.6
Plt Count 236
Sodium 143
Potassium 3.0 L
Chloride 107
Carbon Dioxide 28
BUN 25 H
Creatinine 0.5 L
Glucose 104 H
Calcium 8.9
Vital Signs:
Vital Signs
Temp Pulse Resp BP Pulse Ox
97.5 F 100 16 150/103 94
03/06/25 02:40 03/06/25 08:00 03/06/25 08:00 03/06/25 08:00 03/06/25 08:00
I&O
03/05/25 03/06/25 03/07/25
06:59 06:59 06:59
Intake Total 1070 / 1070
Output Total 2600 / 2600 1900 / 1900
Balance -1530 / -1530 -1900 / -1900
Physical Exam
-
General: No Apparent Distress
Respiratory: Clear to Auscultation (anteriorly) and Non Labored Respirations; Negative Accessory Resp Muscle Use
Cardiac: S1/S2, Irregular Rhythm and Tachycardic
GI: Soft
Neuro: Oriented; Negative Awake ( Sleeping but arousable.)
Psych: Confused (despite improvement with cognition still confused )
Data Reviewed
-
Labs: Labs Reviewed by me
--- NOTE | 2025-03-06 10:02 | W.PN.CD ---
Today's Communication / Plan
-
transitioned to lasix 20mg PO daily 03/05
losartan 100mg daily restarted 03/05
add amlodipine 5mg daily, and can titrate if BP remains elevated
Apixaban, 5 mg twice daily, restarted 03/05
please call us back with additional questions
Impression / Plan
-
I/P: 74M with MCA CVA (2018), permanent atrial fibrillation (on apixaban), hypertension, hypercholesterolemia, aortic atheroma, and seizure disorder who presented with change in mental status. Cardiology consulted for pulmonary edema on CXR.
Outpatient is analyst: Dr. Humphrey
Change in mental status
- being evaluated by hospitalist and neurology
Pulmonary edema
- Pulmonary edema on CXR, proBNP 1440 (no comparison, permanent afib), and mild hypoxemia
- Echocardiogram 03/04: EF 60-65%, nl RV, no sig valve disease
-transitioned to lasix 20mg PO daily 03/05
HTN: elevated BP
-losartan 100mg daily restarted 03/05
-add amlodipine 5mg daily
Abnormal troponin, nonischemic myocardial injury in the setting of pulmonary edema
- Peak troponin 0.062
- He is confused on exam, not complaining of chest pain
- EKG does not demonstrate acute ischemia
Permanent atrial fibrillation
- Rate controlled without AV mic agents
- Oral Anticoagulation: Apixaban, 5 mg twice daily, restarted 03/05
Aortic atheroma, only tolerates rosuvastatin 5 mg once weekly, LDL at goal
Seizure disorder
Prediabetes
Prior CVA, right MCA with M1 occlusion, 2017
Physical Exam
Vital Signs/Labs
Vital Signs
Temp Pulse Resp BP Pulse Ox
98.4 F 100 16 150/103 94
03/06/25 07:57 03/06/25 08:00 03/06/25 08:00 03/06/25 08:00 03/06/25 08:15
03/05/25 03/06/25 03/07/25
06:59 06:59 06:59
Actual Weight 86.4 kg 86.636 kg
03/06/25 04:35
03/06/25 04:35
PT 12.8 Sec (11.4-14.6) 03/03/25 11:26
INR 0.94 03/03/25 11:26
Magnesium 2.0 mg/dl (1.6-2.3) 03/02/25 21:45
Triglycerides 199 mg/dl (10-149) H 03/02/25 05:57
LDL Cholesterol, Calc 46 mg/dl 03/02/25 05:57
VLDL Cholesterol, Calc 39 mg/dl (0-30) H 03/02/25 05:57
HDL Cholesterol 35 mg/dl 03/02/25 05:57
03/02/25
05:57
Kll-S-Fdriiepduos Pept 1440
Physical Exam
Constitutional: No acute distress
EENT: Moist mucous membranes
Cardiovascular: Pedal edema is absent, JVD pressure is normal, Systolic murmur absent and Rhythm/rate is irregular
Respiratory: Respiratory effort normal and Lungs clear to auscul.
Data Reviewed
-
Date of Service: March 06, 2025
EKG: Other (Tele: A fib 80s)
Labs: Labs Reviewed by me
--- NOTE | 2025-03-06 10:04 | W.PN.ID1 ---
Date of Service
Date of Service: March 06, 2025
Today's Communication
Await CSF studies.
Assessment / Plan
Encephalitis
Leukocytosis
Elevated CRP
A-fib
Hx CVA
HTN
Seizure disorder
BPH
Recommendations:
Lumbar puncture abnormal. Pleocytosis is suggestive of a viral etiology. Meningitis panel by PCR negative, including HSV and VZV. Acyclovir previously discontinued.
West Nile serology (serum & CSF) is pending.
Serum Lyme screen positive. Western blot with positive IgG, negative IgM. If CSF Lyme serology negative, would discontinue further ceftriaxone.
CSF arbovirus panel pending.
Continue with supportive care.
Monitor white count and temperature curve, along with mental status. Prior leukocytosis resolved.
����������������������������������������������������������
Chief Complaint
-: Other (Encephalopathy / encephalitis)
Subjective / Review of Systems
Patient seen and examined. Appears to be improved to a degree.
Review of Systems: No Fever
Vital Signs / Physical Exam
Vital Signs
Vital Signs
Temp Pulse Resp BP Pulse Ox
98.4 F 100 16 150/103 94
03/06/25 07:57 03/06/25 08:00 03/06/25 08:00 03/06/25 08:00 03/06/25 08:15
Physical Exam
Constitutional: Comfortable, Acutely Ill and Non-toxic
Eyes: Sclera Anicteric
Cardiovascular: S1/S2; Negative S3/S4
Pulmonary: Non Labored; Negative Wheezes, Rales or Rhonchi
Gastrointestinal: Soft, Non Tender and Non Distended
Neurological: Other (Arousable; responsive to voice and touch.); Negative Meningeal Signs (No nuchal rigidity)
Psychological: Confused
Objective Data
Lab Data
Lab Results
03/06/25 04:35
03/06/25 04:35
ESR 4 mm/hour (0-20) 03/02/25 05:57
PT 12.8 Sec (11.4-14.6) 03/03/25 11:26
INR 0.94 03/03/25 11:26
Estimated Creat Clear 113 ml/min 03/06/25 04:35
Lactic Acid 1.5 mmol/L (0.7-2.0) 03/02/25 21:45
Total Bilirubin 0.9 mg/dl (0.2-1.3) 03/05/25 03:31
AST 69 U/L (17-59) H 03/05/25 03:31
ALT 46 U/L (0-50) 03/05/25 03:31
Alkaline Phosphatase 68 U/L (38-126) 03/05/25 03:31
C-Reactive Protein 22.40 mg/L (0.0-10.00) H 03/02/25 05:57
Most recent labs reviewed.
Micro Results:
03/04/25 16:10 CSF Culture - Preliminary
Csf No Growth After 48 Hours
Gram Stain - Preliminary
03/04/25 16:10 Meningitis/Encephalitis Panel (PCR) - Final
Csf
03/04/25 16:10 Fungal Culture - Preliminary
Csf Culture in progress.
Positive cultures are reported as soon as detected.
Final report to follow in four to five weeks.
03/04/25 16:10 Acid Fast Bacilli Smear - Pending
Csf Acid Fast Bacilli Culture - Pending
03/02/25 05:57 Influenza Types A & B (FABRIZIO) - Final
Nasal Swab Negative for Influenza A & B, NAAT
Negative results must be combined with clinical observations
and patient history.
Nucleic Acid Amplification test (NAAT)performed on the
[employer] platform.
Imaging:
03/02/2025 MRI brain with and without contrast: no MRI evidence for acute infarct. Large region of encephalomalacia in the right temporal and occipital lobes consistent with a large chronic transcortical infarct. Moderate sized band of
encephalomalacia in the periventricular right frontal lobe and right basal ganglia consistent with a chronic hemorrhagic infarct or resolved hypertensive intraparenchymal hemorrhage. Mild volume loss in the left cerebral hemisphere and cerebellum.
Please see full dictation for additional detail.
03/03/2025 CXR (portable): heart is mildly enlarged. Moderate amount of focal perihilar ground glass opacity in the left upper lobe, which appears to have increased compared with the prior radiographic examinations.
Care Review
Plan reviewed with: Physician (Hospitalist)
--- NOTE | 2025-03-06 10:31 | PTOTSP ---
Speech Therapy Follow-up:
Pt with acute on chronic risk factors for dysphagia including hx of CVA, seizures, and questionable encephalitis. Aspiration risk increased given lethargy, however given RN report of tolerance with ice chips/sips/ meds, bedside performance with RN BIRTHING,
WBC WNL, and pt afebrile, recommend cautious diet initiation.
Recommend:
1. Cautious diet initiation of IDDSI Level 4 (puree) and thin liquids. Low threshold to d/c oral diet and make NPO if concerned for aspiration
2. Medications crushed in puree
3. Strict aspiration precautions: small bites/sips, slow rate, only feed when awake, alert, accepting, oral care 3x daily
4. 1:1 supervision and assistance with PO intake
5. RN BIRTHING to follow to monitor tolerance of diet s/p initiation and determine if further downgrades/advancements appropriate.
--- NOTE | 2025-03-06 11:05 | W.PN.NEURO.1 ---
Today's Communication / Plan
-
-Repeat MRI brain w/ and w/o contrast pending for further evaluation if patient remains with reduced cognitive function.
- Appreciate assistance from ID
-continue Valproic Acid 1000 mg BID
Follow valproic acid levels
Neuro Assessment/Plan
Assessment
IMPRESSIONS/RECOMMENDATIONS:
Abrupt onset of change in mental status in a patient with prior history of large right temporal and occipital stroke and recurrent seizure.
Abnormal CSF findings; WBC 73, protein 139 concerning for viral encephalitis
Brain MRI:
1. No MRI evidence for acute infarct.
2. Large region of encephalomalacia in the right temporal and occipital lobes consistent with a large chronic transcortical infarct (partially hemorrhagic).
3. Moderate-sized band of encephalomalacia in the periventricular right frontal lobe and right basal ganglia consistent with a chronic hemorrhagic infarct (or resolved hypertensive intraparenchymal hemorrhage).
4. Mild volume loss in the left cerebral hemisphere and cerebellum.
Head CT:
1. No acute intracranial abnormalities appreciated.
2. Old infarct within the territory of the right MCA area of suspected acute infarct appreciated.
3. Cerebral atrophy and small vessel ischemic change, also stable compared to prior CT.
EEG 03/02/25: This study was suggestive of diffuse cortical dysfunction without focal abnormality. No seizures were recorded.
EEG 03/04/25: Likely unremarkable EEG for age.
Plan
-Repeat MRI brain w/ and w/o contrast pending for further evaluation if patient remains with reduced cognitive function.
- Appreciate assistance from ID
-continue Valproic Acid 1000 mg BID
Follow valproic acid levels
-seizure precautions
-Provide IV thiamine replacement
-continue Eliquis and statin therapy for secondary stroke prevention when possible
Will follow
Subjective/Objective
Subjective Data
Date of Service: March 06, 2025
Objective Data
Vital Signs
Temp Pulse Resp BP Pulse Ox
36.9 C 100 16 150/103 94
03/06/25 07:57 03/06/25 08:00 03/06/25 08:00 03/06/25 08:00 03/06/25 08:15
Lab Results
03/06/25 04:35
03/06/25 04:35
PT 12.8 Sec (11.4-14.6) 03/03/25 11:26
INR 0.94 03/03/25 11:26
Sodium 143 mmol/L (135-145) 03/06/25 04:35
Potassium 3.0 mmol/L (3.5-5.1) L 03/06/25 04:35
BUN 25 mg/dl (9-20) H 03/06/25 04:35
Glucose 104 mg/dl (70-99) H 03/06/25 04:35
Calcium 8.9 mg/dl (8.4-10.2) 03/06/25 04:35
Wsa-G-Vcdvzbhxlkt Pept 1440 pg/ml 03/02/25 05:57
LDL Cholesterol, Calc 46 mg/dl 03/02/25 05:57
Vitamin B12 627 pg/ml (239-931) 03/02/25 05:57
Ur Buprenorphine Negative (Negative) 03/02/25 02:05
Patient Allergies
No Known Allergies Allergy (Unverified 09/19/21 06:45)
Physical Exam
-
General: No Apparent Distress and Wearing Oxygen
Eyes: No Ptosis and PERRLA
HEENT: Normocephalic and Atraumatic
Neck: Full Range of Motion
GI: Non-distended
Skin: Rash (red rash LLE>RLE)
Extremities: No Clubbing, No Cyanosis and No Edema
Psych: Negative Intact Judgement/Insight
Extended Neurological Exam
Mood & Affect: Mood Unremarkable and Affect Unremarkable
Attention Span & Concentration: Lethargic and Closes Eyes after Stimulation (After approximately 3 seconds)
Memory: Able to Recall ('s name)
Tremor: Hand Tremor Absent and Head Tremor Absent
Involuntary Movement: None
Speech: Moderately Reduced Output and Dysarthric
Cranial Nerve II: Left Eye: Pupillary Size Unremarkable and Visual [place] Grossly Intact
Cranial Nerve II: Right Eye: Pupillary Size Unremarkable and Visual [place] Grossly Intact
Cranial Nerves III, IV, : Extraocular Movement: Reduced (Gaze to the right) and Otherwise Unremarkable
Cranial Nerve VII: Facial Symmetry: Normal Facial Symmetry
Cranial Nerve VIII: Hearing: Negative Unremarkable Hearing to Normal Conversational Volume
Cranial Nerve XI: Shoulder Shrug: Unremarkable
Muscle Strength, Overall: Spontaneously Moves
Pronator Drift: Unable to Assess
Coordination: Unable to Assess
Gait & Station: Unable to Assess
[2025-03-06] MEDS: ROCEPHIN 2000 MG IV (11:58)
[2025-03-06] MEDS: STERILE WATER FOR INJECTION 20 ML IV (11:58)
[2025-03-06] MEDS: FLUSH (NSS) 2 FLUSH IV (11:59)
[2025-03-06] MEDS: LR 1000 IV (12:05)
[2025-03-06] MEDS: FLUSH (NSS) 1 FLUSH IV (12:12)
--- NOTE | 2025-03-06 12:48 | PTCARENOTE ---
DTV by 12:00. Unable to void. Bladder scan = 337ml. Per algorithm, will reassess in 2 hours.
[2025-03-06] MEDS: NORVASC 5 MG PO (13:05)
--- NOTE | 2025-03-06 16:27 | CM ---
Patient seen at bedside in IMU. Patient family continue to plan on SNF vs [facility], pending therapy assessment and recommendations. Currently pending medical treatment plan. CM will continue to follow for discharge planning needs.
Plan; SNF vs Acute rehab pending medical treatment plan
--- NOTE | 2025-03-06 16:27 | PTCARENOTE ---
Per bladder scan algorithm, patient straight cath'd at 1415 for bladder scan of 485ml. Unable to successfully insert catheter. Moderate amount of blood coming from urethera. Dr. Garcia made aware, urology consulted. Before urology arrived, patient
voided 275ml ramses blood tinged urine. [id number]. Dr. Cantu came to bedside, inserted Pederson. Now draining yellow urine.
--- NOTE | 2025-03-06 16:40 | CON.MD ---
Consultation - Medical
-
see dictated note
pt admitted 03/02 with encephalitis
he can not provide any hx and much of his care seems to be out of [facility] system- but was on proscar and uroxatrol so ? if he has baseline voiding dysfunction- sees urology
had mccauley placed for > [address]- no gu abnl- prostate nl sized
he remains somnolent and in bed- per protocol mccauley was removed and eliquis was restarted
pt unable to void and nurses unable to cath with attempts resulting in sig urethral blood
at bedside- able to pass 22 [place] coude tip cath- urine cleared- 500cc residual
pt already on alpha pritesh and proscar
hold eliquis for at least 24hrs and trend hematuria
pt unlikely to urinate until MS clears
will follow
Consultation
-
Date/Time Consultation Requested: 03/06/25 at 4pm
Date/Time Consultation Performed: 03/06/25 at 4pm
Requesting Provider: Dr Garcia
Performing Provider: Dr Cantu
Reason for Consultation: urinary retention
--- NOTE | 2025-03-06 20:49 | PTCARENOTE ---
Assumed care of pt after change of shift report. Pt is drowsy at times and restless at other. frequently sliding down in bed. pt c/o back pain. pt turned to left side to relieve pressure off his back. tylenol po admin as ordered. opening eyes to
verbal stim at this time, confused converation. following commands and keeping eyes open long enough to take HS Po meds crushed in puree. mccauley in place, draining yellow urine. HS oral care preformed. assessment as documented. call light in reach.
safe environment maintained.
[2025-03-06] MEDS: FLOMAX 0.4 MG PO (21:12)
[2025-03-06] MEDS: PROSCAR 5 MG PO (21:12)
[2025-03-06 22:25] LABS: Lyme Disease DNA by PCR Not Detected; Lyme Source Serum
[2025-03-07] VITALS (24 sets, daily range): BP systolic 127–166; BP diastolic 73–110; PULSE 90
[2025-03-07 04:43] LABS: Hematocrit 48.5 % (39.0-52.0); Hemoglobin 15.3 g/dL (13.0-18.0); Mean Corp Hgb Conc. 31.5 g/dL (33.0-37.0); Mean Corpuscular Volume 71.9 fL (80.0-94.0); Platelet Count 242 10^3/uL (130-400); Red Cell Dist. Width 18.2 % (11.5-14.5)
[2025-03-07 05:07] LABS: Blood Urea Nitrogen 24 mg/dl (9-20); Calcium 8.5 mg/dl (8.4-10.2); Carbon Dioxide 31 mmol/L (22-30); Chloride 106 mmol/L (98-107); Estimated Creatinine Clearance 114 ml/min; Glucose 100 mg/dl (70-99); Potassium 3.1 mmol/L (3.5-5.1); Sodium 141 mmol/L (135-145); eGFR > 60.00
[2025-03-07] MEDS: KCL ELIXIR 40 MEQ PO (05:47)
--- NOTE | 2025-03-07 07:50 | W.PN.UPDATE ---
Update Note
Progress Note Update
urine clear
on alpha pritesh and proscar
continue mccauley
hold eliquis 24hrs- restart tomorrow and observe
would not try and remove mccauley at this time until MS clears
[2025-03-07] MEDS: DEPACON 60 MG IV ×2 (08:39→19:21)
[2025-03-07] MEDS: LASIX 20 MG PO (08:42)
[2025-03-07] MEDS: NORVASC 5 MG PO (08:42)
[2025-03-07] MEDS: LEXAPRO 20 MG PO (08:42)
[2025-03-07] MEDS: COZAAR 100 MG PO (08:43)
[2025-03-07] MEDS: METAMUCIL, KONSYL PO (08:58)
--- NOTE | 2025-03-07 09:33 | W.PN.ID1 ---
Date of Service
Date of Service: March 07, 2025
Today's Communication
Continue ceftriaxone for now pending CSF Lyme DNA PCR.
Assessment / Plan
Encephalitis improving
Leukocytosis -resolved
Elevated CRP
A-fib
Hx CVA
HTN
Seizure disorder
BPH
Recommendations:
Lumbar puncture abnormal. 73 WBC, 70% lymphs. Pleocytosis is suggestive of a viral etiology. Meningitis panel by PCR negative, including HSV and VZV.
West Nile serology (serum & CSF) is pending.
Serum Lyme screen positive. Western blot with positive IgG, negative IgM. Serum Lyme DNA neg.
Add-on CSF Lyme PCR; if negative, would discontinue further ceftriaxone.
CSF arbovirus panel pending.
Continue with supportive care.
Monitor white count and temperature curve, along with mental status.
����������������������������������������������������������
Chief Complaint
-: Other (Encephalopathy / encephalitis)
Subjective / Review of Systems
Mental status improved. No CAI/neck stiffness.
Vital Signs / Physical Exam
Vital Signs
Vital Signs
Temp Pulse Resp BP Pulse Ox
98.2 F 98 18 158/83 94
03/07/25 07:56 03/07/25 06:00 03/07/25 06:00 03/07/25 06:00 03/07/25 06:00
Physical Exam
Constitutional: Comfortable, Acutely Ill and Non-toxic
Eyes: Sclera Anicteric
Cardiovascular: Regular Rate and S1/S2
Pulmonary: Non Labored
Gastrointestinal: Soft, Non Tender and Non Distended
Genito-Urinary: Negative CVA Tenderness
Extremities: Negative Edema
Neurological: AO x 3; Negative Meningeal Signs (No nuchal rigidity)
Objective Data
Lab Data
Lab Results
03/07/25 04:27
03/07/25 04:27
ESR 4 mm/hour (0-20) 03/02/25 05:57
PT 12.8 Sec (11.4-14.6) 03/03/25 11:26
INR 0.94 03/03/25 11:26
Estimated Creat Clear 114 ml/min 03/07/25 04:27
Lactic Acid 1.5 mmol/L (0.7-2.0) 03/02/25 21:45
Total Bilirubin 0.9 mg/dl (0.2-1.3) 03/05/25 03:31
AST 69 U/L (17-59) H 03/05/25 03:31
ALT 46 U/L (0-50) 03/05/25 03:31
Alkaline Phosphatase 68 U/L (38-126) 03/05/25 03:31
C-Reactive Protein 22.40 mg/L (0.0-10.00) H 03/02/25 05:57
Most recent labs reviewed.
Micro Results:
03/04/25 16:10 CSF Culture - Preliminary
Csf No Growth After 48 Hours
Gram Stain - Preliminary
03/04/25 16:10 Meningitis/Encephalitis Panel (PCR) - Final
Csf
03/04/25 16:10 Fungal Culture - Preliminary
Csf Culture in progress.
Positive cultures are reported as soon as detected.
Final report to follow in four to five weeks.
03/04/25 16:10 Acid Fast Bacilli Smear - Pending
Csf Acid Fast Bacilli Culture - Pending
03/02/25 05:57 Influenza Types A & B (FABRIZIO) - Final
Nasal Swab Negative for Influenza A & B, NAAT
Negative results must be combined with clinical observations
and patient history.
Nucleic Acid Amplification test (NAAT)performed on the
[employer] platform.
Imaging:
03/02/2025 MRI brain with and without contrast: no MRI evidence for acute infarct. Large region of encephalomalacia in the right temporal and occipital lobes consistent with a large chronic transcortical infarct. Moderate sized band of
encephalomalacia in the periventricular right frontal lobe and right basal ganglia consistent with a chronic hemorrhagic infarct or resolved hypertensive intraparenchymal hemorrhage. Mild volume loss in the left cerebral hemisphere and cerebellum.
Please see full dictation for additional detail.
03/03/2025 CXR (portable): heart is mildly enlarged. Moderate amount of focal perihilar ground glass opacity in the left upper lobe, which appears to have increased compared with the prior radiographic examinations.
[2025-03-07] MEDS: TYLENOL 650 MG PO ×2 (10:12→19:42)
[2025-03-07] MEDS: STERILE WATER FOR INJECTION 20 ML IV (10:12)
[2025-03-07] MEDS: FLUSH (NSS) 2 FLUSH IV (10:13)
[2025-03-07] MEDS: ROCEPHIN 2000 MG IV (10:13)
--- NOTE | 2025-03-07 10:52 | W.PN.HOSP.TC ---
Today's Communication/Plan
-
Advance diet as he is able to take orally.
Continue with IV valproic acid
DC ceftriaxone if okay from ID standpoint
Follow remaining CSF culture data
Continue with PT OT treatments
Assessment / Plan
Assessment / Plan
Change in mental status
Presented with symptoms of weakness confusion for a week
Postadmission: 03/02 he had a breakthrough seizures. No history of witnessed seizures at home.
MRI of the brain with and without showed no acute infarct.
LP suggestive of encephalitis - LP with elevated white count predominantly lymphocytes and protein. Meningitis PCR panel negative. Await Lyme, VDRL, West Nile, fungal cultures.
His petechial rash in the lower extremity and Lyme serology presumptively positive but IgM came back neg and has IgG postivity suggestive of prior infection. Check CSF Lyme serology. Stop Ceftriaxone initiated for presumptive Lyme once CSF lyme
testing is neg
He has a bilateral diffuse reticulonodular marking-with small pleural effusion raises more concern for diffuse pulmonary edema than pneumonia.
Patient with history of previous stroke and seizures
Had a breakthrough seizure
Had EEG 1 hour 03/03 and according to neurology no seizure activity. prolonged EEG 03/02 showed diffuse slowing
Continue with valproic acid and as needed diazepam for now.
Bilateral pulmonary reticulonodular increased [id number] also showed small bilateral pleural effusion including fluid in the fissures and indistinctness of the central pulmonary vasculature or raising concern for pulm edema.
Troponins does not support acute coronary syndrome nor EKG
Improved weight and off of oxygen. Lasix switched to oral route.
Cardiology following
Echo technically difficult study due to patient's clinical status. EF of 60 to 65% no significant valvular disease.
Repeat CXR shows improved pulm edema
Left upper new pulmonary infiltrate compared to admission chest x-ray
Patient had a seizure and this raises concern for aspiration pneumonitis/pneumonia. No further fevers and normalized white count. Repeat chest x-ray shows resolution. Hold further antibiotics.
History of stroke and A-fib
On Eliquis
MRI brain was with and without contrast showed no abnormal cerebral enhancement . Neuro ok to restart Eliquis.
Primary hypertension
Continue with losartan when able to take p.o.
BPH on medication
Acute urinary retention
Hematuria with a reattempt of Pederson insertion possible traumatic
Continue with Pederson now. Hematuria clear. Restart Eliquis if okay from urology standpoint.
Discussed with RN
Discussed with at bedside
PT OT eval
Anticipated Discharge: > 48 hours
Subjective/Interval History
-
Date of Service: March 07, 2025
at bedside. Definitely states improved cognitive function but sleepy.
Discussed with RN-no agitation issues. Tolerating diet and taking medications.
He is sleepy but arousable and oriented. Denies headache. Denies shortness of breath. Off of oxygen today.
Objective Data
-
Labs:
Laboratory Results
03/07/25
04:27
WBC 7.4
Hgb 15.3
Hct 48.5
Plt Count 242
Sodium 141
Potassium 3.1 L
Chloride 106
Carbon Dioxide 31 H
BUN 24 H
Creatinine 0.5 L
Glucose 100 H
Calcium 8.5
Vital Signs:
Vital Signs
Temp Pulse Resp BP Pulse Ox
98.2 F 98 18 158/83 94
03/07/25 07:56 03/07/25 06:00 03/07/25 06:00 03/07/25 06:00 03/07/25 06:00
I&O
03/06/25 03/07/25 03/08/25
06:59 06:59 06:59
Output Total 1900 / 1900 400 / 400
Balance -1900 / -1900 -400 / -400
Physical Exam
-
General: Comfortable
Respiratory: Clear to Auscultation (anteriorly) and Non Labored Respirations; Negative Accessory Resp Muscle Use
Cardiac: Regular Rhythm and S1/S2; Negative Tachycardic
GI: Soft and Nontender
Neuro: Oriented; Negative Awake (sleepy but arousable )
Psych: Calm; Negative Agitated
Data Reviewed
-
Labs: Labs Reviewed by me
[2025-03-07] MEDS: FLUSH (NSS) IV (11:58)
[2025-03-07 13:32] LABS: West Nile Virus, IgM, Serum 8.48 IV (<=0.89)
[2025-03-07] MEDS: ELIQUIS 5 MG PO (19:21)
--- NOTE | 2025-03-07 20:29 | PTCARENOTE ---
Pt is drowsy and disoriented to time. pt able to follow simple commands. pt c/o back, hip, shoulder pain- administered prn Tylenol - see MAR, pt turned. mccauley in place- draining yellow urine. HS oral care preformed. pt w/ call argueta in reach
[2025-03-07 21:33] LABS: CSF VDRL (T. pallidum) Non Reactive (Non Reactive)
[2025-03-07] MEDS: SENOKOT-S 1 TABLET PO (22:05)
[2025-03-07] MEDS: MIRALAX 17 GRAMS PO (22:05)
[2025-03-07] MEDS: PROSCAR 5 MG PO (22:05)
[2025-03-07] MEDS: FLOMAX 0.4 MG PO (22:05)
[2025-03-07] MEDS: ROXICODONE 5 MG PO (23:48)
[2025-03-08] VITALS (28 sets, daily range): BP systolic 124–166; BP diastolic 77–106; PULSE 87; O2SAT 95–98; BMI 30.1
[2025-03-08] MEDS: APRESOLINE 5 MG IV (04:39)
[2025-03-08] MEDS: FLUSH (NSS) 1 FLUSH IV (04:40)
[2025-03-08] MEDS: ROXICODONE 5 MG PO (04:40)
[2025-03-08 04:59] LABS: Blood Urea Nitrogen 22 mg/dl (9-20); Calcium 8.8 mg/dl (8.4-10.2); Carbon Dioxide 32 mmol/L (22-30); Chloride 105 mmol/L (98-107); Estimated Creatinine Clearance 114 ml/min; Glucose 108 mg/dl (70-99); Potassium 3.0 mmol/L (3.5-5.1); Sodium 141 mmol/L (135-145); eGFR > 60.00
--- NOTE | 2025-03-08 08:09 | W.PN.URO.CBU ---
Today's Communication / Plan
-
mccauley
Assessment / Plan
-
BPH
urinary retention
traumatic cath attempt with bleeding
continue prostate meds
continue mccauley for now
Diagnosis
-
Date of Service: March 08, 2025
-
Patient Diagnosis:
BPH
urinary retention
encephalopathy
Subjective
-
pt currently asleep
has been awake- but still not coherent
mccauley in place- urine fortunately clear with eliquis restart
Objective
-
Vital Signs
Temp Pulse Resp BP Pulse Ox
98.5 F 91 22 161/86 94
03/08/25 04:01 03/08/25 04:39 03/08/25 04:00 03/08/25 04:39 03/08/25 04:00
Intake and Output
03/07/25 03/08/25 03/09/25
06:59 06:59 06:59
Intake Total 325 / 325
Output Total 400 / 400 1450 / 1450
Balance -400 / -400 -1125 / -1125
Intake:
Oral fluids 240 / 240
IV fluids (Total)
IV piggybacks 60 / 60
Output:
Urine, Mccauley 400 / 400 1450 / 1450
Laboratory Results
03/07/25 04:27
03/08/25 04:28
Review of Systems
-
Unable to obtain full review of systems at this time due to: Other (not coherent)
Physical Exam
-
General - asleep, no acute distress
[2025-03-08] MEDS: DEPACON 60 MG IV ×2 (08:35→19:48)
[2025-03-08] MEDS: LASIX 20 MG PO (08:37)
[2025-03-08] MEDS: COZAAR 100 MG PO (08:37)
[2025-03-08] MEDS: ELIQUIS 5 MG PO ×2 (08:37→19:45)
[2025-03-08] MEDS: LEXAPRO 20 MG PO (08:37)
[2025-03-08] MEDS: NORVASC 5 MG PO (08:37)
[2025-03-08] MEDS: METAMUCIL, KONSYL PO (08:38)
--- NOTE | 2025-03-08 09:04 | W.PN.HOSP.TC ---
Today's Communication/Plan
-
DC ceftriaxone
Continue supportive care
Continue with bowel regimen
Advance diet per speech therapy
Assessment / Plan
Assessment / Plan
Change in mental status secondary to encephalitis
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 CSF West Nile virus serology pending
Presented with symptoms of weakness confusion for a week
Postadmission: 03/02 he had a breakthrough seizures. No history of witnessed seizures at home.
MRI of the brain with and without showed no acute infarct.
LP suggestive of encephalitis - LP with elevated white count predominantly lymphocytes and protein. Meningitis PCR panel negative. Serum Lyme DNA negative. negative CSF VDRL ; pending CSF West Nile antibody, fungal cultures.
Stop ceftriaxone
Continue with supportive care
Patient with history of previous stroke and seizures
Had a breakthrough seizure on this admission
Continue with valproic acid per neurology [patient on Keppra at home] and as needed diazepam for now.
Bilateral pulmonary reticulonodular increased [id number] also showed small bilateral pleural effusion including fluid in the fissures and indistinctness of the central pulmonary vasculature or raising concern for pulm edema.
Troponins does not support acute coronary syndrome nor EKG
Improved weight and off of oxygen. Lasix switched to oral route.
Cardiology following
Echo technically difficult study due to patient's clinical status. EF of 60 to 65% no significant valvular disease.
Repeat CXR shows improved pulm edema
Continue with Lasix
Hypokalemia-replete
Left upper new pulmonary infiltrate compared to admission chest x-ray
Patient had a seizure and this raises concern for aspiration pneumonitis/pneumonia. No further fevers and normalized white count. Repeat chest x-ray shows resolution. Hold further antibiotics.
History of stroke and A-fib
On Eliquis
MRI brain was with and without contrast showed no abnormal cerebral enhancement . Neuro ok to restart Eliquis.
Primary hypertension
Continue with losartan when able to take p.o.
BPH on medication
Acute urinary retention
Hematuria with a reattempt of Pederson insertion possible traumatic
Continue with Pederson now. Hematuria clear.
Discussed with RN
Discussed with at bedside-advised no more bird feeding for Domenico going forward . Suspect the birds as the reservior host in this case . also found a bird .
Discussed with ID
Continue PT OT eval
Anticipated Discharge: > 48 hours
Subjective/Interval History
-
Date of Service: March 08, 2025
Patient is oriented to place and person.
at bedside who says slow improvement with his cognition but seems to be in and out of sleep.
Patient asking when he can go home. He complains of constipation.
Denies any headache.
Denies any shortness of breath or chest pain.
Objective Data
-
Labs:
Laboratory Results
03/08/25
04:28
Sodium 141
Potassium 3.0 L
Chloride 105
Carbon Dioxide 32 H
BUN 22 H
Creatinine 0.5 L
Glucose 108 H
Calcium 8.8
Vital Signs:
Vital Signs
Temp Pulse Resp BP Pulse Ox
97.9 F 91 22 161/86 94
03/08/25 08:13 03/08/25 04:39 03/08/25 04:00 03/08/25 04:39 03/08/25 04:00
I&O
03/07/25 03/08/25 03/09/25
06:59 06:59 06:59
Intake Total 325 / 325
Output Total 400 / 400 1450 / 1450
Balance -400 / -400 -1125 / -1125
Physical Exam
-
General: Comfortable
Respiratory: Clear to Auscultation (Anteriorly) and Non Labored Respirations; Negative Accessory Resp Muscle Use
Cardiac: Regular Rhythm and S1/S2
GI: Soft
Neuro: Awake, Alert and Oriented; Negative Tremors
Psych: Calm and Confused; Negative Agitated
Data Reviewed
-
Labs: Labs Reviewed by me
[2025-03-08] MEDS: KCL ELIXIR 40 MEQ TUBE (09:20)
--- NOTE | 2025-03-08 09:41 | W.PN.ID1 ---
Date of Service
Date of Service: March 08, 2025
Today's Communication
Supportive care.
Assessment / Plan
WNV Encephalitis improving
Leukocytosis -resolved
Elevated CRP
A-fib
Hx CVA
HTN
Seizure disorder
BPH
Recommendations:
Serum West Nile Virus IgM positive.
Lumbar puncture abnormal. 73 WBC, 70% lymphs. Pleocytosis is suggestive of a viral etiology. Meningitis panel by PCR negative, including HSV and VZV.
West Nile serology (CSF) is pending.
CSF arbovirus panel pending.
Serum Lyme screen positive. Western blot with positive IgG, negative IgM. Serum Lyme DNA neg.
Ceftriaxone dc'd.
Continue with supportive care.
Monitor mental status.
����������������������������������������������������������
Chief Complaint
-: Other (Encephalopathy / encephalitis)
Subjective / Review of Systems
at bedside.
Pt no longer confused but lethargic today.
Vital Signs / Physical Exam
Vital Signs
Vital Signs
Temp Pulse Resp BP Pulse Ox
97.9 F 91 22 161/86 94
03/08/25 08:13 03/08/25 04:39 03/08/25 04:00 03/08/25 04:39 03/08/25 04:00
Physical Exam
Constitutional: Comfortable
Head: Other
Eyes: No Conjunctival Hemorrhage and Sclera Anicteric
Cardiovascular: Regular Rate and S1/S2
Pulmonary: Clear
Gastrointestinal: Soft, Non Tender, Non Distended and Normal Bowel Sounds
Neurological: Other (Arousable, then falls asleep); Negative Meningeal Signs
Objective Data
Lab Data
Lab Results
03/07/25 04:27
03/08/25 04:28
ESR 4 mm/hour (0-20) 03/02/25 05:57
PT 12.8 Sec (11.4-14.6) 03/03/25 11:26
INR 0.94 03/03/25 11:26
Estimated Creat Clear 114 ml/min 03/08/25 04:28
Lactic Acid 1.5 mmol/L (0.7-2.0) 03/02/25 21:45
Total Bilirubin 0.9 mg/dl (0.2-1.3) 03/05/25 03:31
AST 69 U/L (17-59) H 03/05/25 03:31
ALT 46 U/L (0-50) 03/05/25 03:31
Alkaline Phosphatase 68 U/L (38-126) 03/05/25 03:31
C-Reactive Protein 22.40 mg/L (0.0-10.00) H 03/02/25 05:57
Most recent labs reviewed.
Micro Results:
03/04/25 16:10 CSF Culture - Preliminary
Csf No Growth After 4 Days
Gram Stain - Preliminary
03/04/25 16:10 Meningitis/Encephalitis Panel (PCR) - Final
Csf
03/04/25 16:10 Fungal Culture - Preliminary
Csf Culture in progress.
Positive cultures are reported as soon as detected.
Final report to follow in four to five weeks.
03/02/25 05:57 Influenza Types A & B (FABRIZIO) - Final
Nasal Swab Negative for Influenza A & B, NAAT
Negative results must be combined with clinical observations
and patient history.
Nucleic Acid Amplification test (NAAT)performed on the
[employer] platform.
Imaging:
03/02/2025 MRI brain with and without contrast: no MRI evidence for acute infarct. Large region of encephalomalacia in the right temporal and occipital lobes consistent with a large chronic transcortical infarct. Moderate sized band of
encephalomalacia in the periventricular right frontal lobe and right basal ganglia consistent with a chronic hemorrhagic infarct or resolved hypertensive intraparenchymal hemorrhage. Mild volume loss in the left cerebral hemisphere and cerebellum.
Please see full dictation for additional detail.
03/03/2025 CXR (portable): heart is mildly enlarged. Moderate amount of focal perihilar ground glass opacity in the left upper lobe, which appears to have increased compared with the prior radiographic examinations.
Care Review
Plan reviewed with: Physician (Dr. Garcia)
[2025-03-08] MEDS: FLUSH (NSS) IV ×2 (09:45→11:42)
[2025-03-08] MEDS: PROSCAR 5 MG PO (19:45)
[2025-03-08] MEDS: FLOMAX 0.4 MG PO (19:45)
--- NOTE | 2025-03-08 22:04 | PTCARENOTE ---
Patient asleep at start of shift. Patient awakens to verbal stimuli. Speech is garbled and slow. Patient remains in afib, wk pp b/l. Lung sounds diminished, poor respiratory effort noted, pox 97% on RA. BS active x4. Pederson cath intact and draining
clear yellow urine. Bed alarm on, call argueta within reach, will continue to monitor patient closely.
[2025-03-08 23:13] LABS: Paraneoplastic Ab IgG, CSF None Detected (None Detected)
[2025-03-09] VITALS (34 sets, daily range): BP systolic 130–177; BP diastolic 69–158; PULSE 87–123; BMI 29.9
[2025-03-09] MEDS: ROXICODONE 5 MG PO (03:03)
--- NOTE | 2025-03-09 03:27 | PTCARENOTE ---
Patient yelling out for RN. Patient states he lost his tooth, RN assessed and patient noted to be missing front tooth. Tooth noted on patients gown. Tooth placed in denture cup and labeled. Patient c/o pain to back, prn medication administered per
md orders.
B/L mitt restraints renewed by MARILYN, currently mitts off. Will apply as needed for patient safety.
[2025-03-09 04:26] LABS: Blood Urea Nitrogen 25 mg/dl (9-20); Calcium 8.8 mg/dl (8.4-10.2); Carbon Dioxide 31 mmol/L (22-30); Chloride 105 mmol/L (98-107); Estimated Creatinine Clearance 113 ml/min; Glucose 111 mg/dl (70-99); Potassium 3.2 mmol/L (3.5-5.1); Sodium 139 mmol/L (135-145); eGFR > 60.00
--- NOTE | 2025-03-09 07:32 | W.PN.URO.CBU ---
Today's Communication / Plan
-
TOV prior to discharge- BUT THIS SHOULD BE DIRECTED BY UROLOGY GIVEN DIFFICULTY OF CATHETERIZATION
Assessment / Plan
-
BPH
urinary retention
traumatic cath attempt with bleeding
continue prostate meds
continue mccauley for now
if pt awake and UOOB today- would consider TOV in next 24-48hrs
Diagnosis
-
Date of Service: March 09, 2025
-
Patient Diagnosis:
BPH
urinary retention
encephalopathy
Subjective
-
pt more alert and responsive this am- but can not relay and sig hx to me
mccauley remains in place- urine clear
Objective
-
Vital Signs
Temp Pulse Resp BP Pulse Ox
98.1 F 91 13 157/78 92
03/09/25 03:00 03/09/25 06:00 03/09/25 06:00 03/09/25 05:00 03/09/25 06:00
Intake and Output
03/08/25 03/09/25 03/10/25
06:59 06:59 06:59
Intake Total 325 / 325
Output Total 1450 / 1450 450 / 450
Balance -1125 / -1125 -450 / -450
Intake:
Oral fluids 240 / 240
IV fluids (Total)
IV piggybacks 60 / 60
Output:
Urine, Mccauley 1450 / 1450 450 / 450
Laboratory Results
03/07/25 04:27
03/09/25 03:52
Review of Systems
-
Unable to obtain full review of systems at this time due to: Other (no specific complaints other than being thirsty)
Physical Exam
-
General - no acute distress
Abdomen - soft, non-tender
Genitalia - normal- mccauley in place
[2025-03-09] MEDS: DEPACON 60 MG IV ×2 (07:45→19:15)
[2025-03-09] MEDS: METAMUCIL, KONSYL 1 PACKET PO (07:45)
[2025-03-09] MEDS: LASIX 20 MG PO (07:46)
[2025-03-09] MEDS: COZAAR 100 MG PO (07:46)
[2025-03-09] MEDS: KCL ELIXIR 40 MEQ PO ×2 (07:46→16:59)
[2025-03-09] MEDS: ELIQUIS 5 MG PO ×2 (07:46→19:15)
[2025-03-09] MEDS: LEXAPRO 20 MG PO (07:47)
[2025-03-09] MEDS: NORVASC 5 MG PO (07:47)
[2025-03-09] MEDS: FLUSH (NSS) IV (08:26)
[2025-03-09 08:35] LABS: West Nile Virus, IgM, CSF 9.57 IV (<=0.89)
--- NOTE | 2025-03-09 11:13 | W.PN.ID1 ---
Date of Service
Date of Service: March 09, 2025
Today's Communication
Continue with supportive care.
Assessment / Plan
WNV Encephalitis improving
Leukocytosis -resolved
Elevated CRP
A-fib
Hx CVA
HTN
Seizure disorder
BPH
Recommendations:
Serum/CSF West Nile Virus IgM positive.
Lumbar puncture abnormal. 73 WBC, 70% lymphs. Pleocytosis is suggestive of a viral etiology. Meningitis panel by PCR negative, including HSV and VZV.
CSF arbovirus panel pending.
Serum Lyme screen positive. Western blot with positive IgG, negative IgM. Serum Lyme DNA neg.
Continue with supportive care. There is no specific antiviral treatment for West Nile virus
Monitor mental status.
����������������������������������������������������������
Chief Complaint
-: Other (Encephalopathy / encephalitis)
Subjective / Review of Systems
Review of Systems: No Fever and No Chills
Vital Signs / Physical Exam
Vital Signs
Vital Signs
Temp Pulse Resp BP Pulse Ox
98.4 F 106 15 130/79 98
03/09/25 08:16 03/09/25 10:00 03/09/25 10:00 03/09/25 10:00 03/09/25 08:00
Physical Exam
Constitutional: Comfortable
Head: Other
Eyes: No Conjunctival Hemorrhage and Sclera Anicteric
Cardiovascular: Regular Rate and S1/S2
Pulmonary: Clear
Gastrointestinal: Soft, Non Tender, Non Distended and Normal Bowel Sounds
Neurological: Awake and Alert; Negative Meningeal Signs
Psychological: Calm
Objective Data
Lab Data
Lab Results
03/07/25 04:27
03/09/25 03:52
ESR 4 mm/hour (0-20) 03/02/25 05:57
PT 12.8 Sec (11.4-14.6) 03/03/25 11:26
INR 0.94 03/03/25 11:26
Estimated Creat Clear 113 ml/min 03/09/25 03:52
Lactic Acid 1.5 mmol/L (0.7-2.0) 03/02/25 21:45
Total Bilirubin 0.9 mg/dl (0.2-1.3) 03/05/25 03:31
AST 69 U/L (17-59) H 03/05/25 03:31
ALT 46 U/L (0-50) 03/05/25 03:31
Alkaline Phosphatase 68 U/L (38-126) 03/05/25 03:31
C-Reactive Protein 22.40 mg/L (0.0-10.00) H 03/02/25 05:57
Most recent labs reviewed.
Micro Results:
03/04/25 16:10 CSF Culture - Preliminary
Csf No Growth After 4 Days
Gram Stain - Preliminary
03/04/25 16:10 Meningitis/Encephalitis Panel (PCR) - Final
Csf
03/04/25 16:10 Fungal Culture - Preliminary
Csf Culture in progress.
Positive cultures are reported as soon as detected.
Final report to follow in four to five weeks.
03/02/25 05:57 Influenza Types A & B (FABRIZIO) - Final
Nasal Swab Negative for Influenza A & B, NAAT
Negative results must be combined with clinical observations
and patient history.
Nucleic Acid Amplification test (NAAT)performed on the
[employer] platform.
CSF
03/04/25
16:10
CSF West Nile IgM Ab 9.57 H
Imaging:
03/02/2025 MRI brain with and without contrast: no MRI evidence for acute infarct. Large region of encephalomalacia in the right temporal and occipital lobes consistent with a large chronic transcortical infarct. Moderate sized band of
encephalomalacia in the periventricular right frontal lobe and right basal ganglia consistent with a chronic hemorrhagic infarct or resolved hypertensive intraparenchymal hemorrhage. Mild volume loss in the left cerebral hemisphere and cerebellum.
Please see full dictation for additional detail.
03/03/2025 CXR (portable): heart is mildly enlarged. Moderate amount of focal perihilar ground glass opacity in the left upper lobe, which appears to have increased compared with the prior radiographic examinations.
--- NOTE | 2025-03-09 14:59 | PTCARENOTE ---
Patient AOx2 (place, person). Confused, forgetful, drowsy and restless at times. Bed alarm on and audible. Rings call argueta appropriately. Garbled speech. On RA with SpO2 greater than 92%. A fib with PVC's on monitor. Pederson draining ramses colored
urine. Incontinent to bowel at times. Tolerating oral diet. Call argueta within reach, bed in lowest position, and bed of wheels locked.
--- NOTE | 2025-03-09 15:41 | W.PN.HOSP.TC ---
Today's Communication/Plan
-
enema for impaction
supportive care for WNV encephalitis
Assessment / Plan
Assessment / Plan
Assessment:
Acute west Nile encephalitis
- presented with confusion/weakness
- possible bird reservoir
- ID following; supportive care
breakthrough Seizure
Hx of prior CVA and Seizure
- continue Valproic acid (previously on Keppra)
- MRI brain negative
Constipation with possible fecal impaction
- start with MoM enema
Bilateral pulmonary reticulonodular increased markings
- x-ray also showed small bilateral pleural effusion including fluid in the fissures and indistinctness of the central pulmonary vasculature or raising concern for pulm edema.
- s/p IV Lasix course; continue oral Lasix
- Cards signed off
Hypokalemia
- replete
Left upper new pulmonary infiltrate compared to admission chest x-ray
- Patient had a seizure and this raises concern for aspiration pneumonitis/pneumonia. No further fevers and normalized white count. Repeat chest x-ray shows resolution. Hold further antibiotics.
Hx of stroke and A-fib
- continue Eliquis
Essential HTN
- continue losartan
BPH on medication
Acute urinary retention
- Hematuria with a reattempt of Pederson insertion possible traumatic
- Continue with Pederson now. Hematuria clear.
- Urology managing
DVT ppx: Eliquis
Code: Full
Anticipated Discharge: 24 - 48 hours
Subjective/Interval History
-
Date of Service: March 09, 2025
resting comfortably
no BM yet this admission per RN
Objective Data
-
Labs:
Laboratory Results
03/09/25
03:52
Sodium 139
Potassium 3.2 L
Chloride 105
Carbon Dioxide 31 H
BUN 25 H
Creatinine 0.5 L
Glucose 111 H
Calcium 8.8
Vital Signs:
Vital Signs
Temp Pulse Resp BP Pulse Ox
98.6 F 94 23 145/103 96
03/09/25 15:02 03/09/25 14:00 03/09/25 14:00 03/09/25 14:00 03/09/25 12:00
I&O
03/08/25 03/09/25 03/10/25
06:59 06:59 06:59
Intake Total 325 / 325
Output Total 1450 / 1450 450 / 450 675 / 675
Balance -1125 / -1125 -450 / -450 -675 / -675
Physical Exam
-
General: No Apparent Distress
HEENT: Normocephalic and Atraumatic
Respiratory: Negative Wheezes
Cardiac: Regular Rhythm and S1/S2
GI: Soft
Neuro: AO x 3
Psych: Calm
Data Reviewed
-
Total Time Spent with Patient (in minutes): 41
Labs: Labs Reviewed by me
[2025-03-09] MEDS: APRESOLINE 5 MG IV (18:13)
--- NOTE | 2025-03-09 18:15 | PTCARENOTE ---
BP is 162/104. PRN hydralazine give. Care ongoing.
[2025-03-09] MEDS: FLOMAX 0.4 MG PO (21:35)
[2025-03-09] MEDS: PROSCAR 5 MG PO (21:35)
[2025-03-10] VITALS (17 sets, daily range): BP systolic 100–161; BP diastolic 62–101; PULSE 107; BMI 29.7
[2025-03-10] MEDS: APRESOLINE 5 MG IV (01:18)
[2025-03-10 06:42] LABS: Blood Urea Nitrogen 23 mg/dl (9-20); Calcium 8.8 mg/dl (8.4-10.2); Carbon Dioxide 28 mmol/L (22-30); Chloride 107 mmol/L (98-107); Estimated Creatinine Clearance 101 ml/min; Glucose 108 mg/dl (70-99); Potassium 3.4 mmol/L (3.5-5.1); Sodium 140 mmol/L (135-145); eGFR > 60.00
[2025-03-10 06:51] LABS: Hematocrit 48.3 % (39.0-52.0); Hemoglobin 15.1 g/dL (13.0-18.0); Mean Corp Hgb Conc. 31.3 g/dL (33.0-37.0); Mean Corpuscular Volume 71.9 fL (80.0-94.0); Platelet Count 365 10^3/uL (130-400); Red Cell Dist. Width 19.1 % (11.5-14.5)
[2025-03-10] MEDS: DEPACON 60 MG IV ×2 (08:33→19:48)
[2025-03-10] MEDS: LASIX 20 MG PO (08:36)
[2025-03-10] MEDS: METAMUCIL, KONSYL 1 PACKET PO (08:36)
[2025-03-10] MEDS: ELIQUIS 5 MG PO ×2 (08:36→19:48)
[2025-03-10] MEDS: COZAAR 100 MG PO (08:36)
[2025-03-10] MEDS: NORVASC 5 MG PO (08:37)
[2025-03-10] MEDS: LEXAPRO 20 MG PO (08:37)
--- NOTE | 2025-03-10 08:40 | W.PN.ID1 ---
Date of Service
Date of Service: March 10, 2025
Today's Communication
Continue with supportive measures.
Assessment / Plan
WNV Encephalitis - improving
Leukocytosis -low-grade today
Elevated CRP
A-fib
Hx CVA
HTN
Seizure disorder
BPH
Recommendations:
Serum/CSF West Nile Virus IgM positive.
Lumbar puncture abnormal. 73 WBC, 70% lymphs. Pleocytosis is suggestive of a viral etiology. Meningitis panel by PCR negative, including HSV and VZV.
Full CSF arbovirus panel pending.
Serum Lyme screen positive. Western blot with positive IgG, negative IgM, consistent with old exposure. Serum Lyme DNA neg.
Continue with supportive care. There is no specific antiviral treatment for West Nile virus
Monitor mental status.
Little more to offer from a Infectious Disease standpoint.
Will follow along with you peripherally.
����������������������������������������������������������
Chief Complaint
-: Other (West nile encephalitis)
Subjective / Review of Systems
Patient seen and examined. Reports feeling improved. Denies headache.
Review of Systems: No Fever and No Chills
Vital Signs / Physical Exam
Vital Signs
Vital Signs
Temp Pulse Resp BP Pulse Ox
99.5 F 108 14 161/81 96
03/10/25 08:13 03/10/25 08:36 03/10/25 06:00 03/10/25 08:37 03/10/25 03:08
Physical Exam
Constitutional: Comfortable
Eyes: No Conjunctival Hemorrhage and Sclera Anicteric
Cardiovascular: Regular Rate and S1/S2; Negative S3/S4
Pulmonary: Clear
Gastrointestinal: Soft, Non Tender, Non Distended and Normal Bowel Sounds
Extremities: Negative Edema
Neurological: Awake, Alert and Other (Hard of hearing); Negative Meningeal Signs
Psychological: Calm
Objective Data
Lab Data
Lab Results
03/10/25 06:08
03/10/25 06:08
ESR 4 mm/hour (0-20) 03/02/25 05:57
PT 12.8 Sec (11.4-14.6) 03/03/25 11:26
INR 0.94 03/03/25 11:26
Estimated Creat Clear 101 ml/min 03/10/25 06:08
Lactic Acid 1.5 mmol/L (0.7-2.0) 03/02/25 21:45
Total Bilirubin 0.9 mg/dl (0.2-1.3) 03/05/25 03:31
AST 69 U/L (17-59) H 03/05/25 03:31
ALT 46 U/L (0-50) 03/05/25 03:31
Alkaline Phosphatase 68 U/L (38-126) 03/05/25 03:31
C-Reactive Protein 22.40 mg/L (0.0-10.00) H 03/02/25 05:57
Most recent labs reviewed.
Micro Results:
03/04/25 16:10 Fungal Culture - Preliminary
Csf Culture in progress.
Positive cultures are reported as soon as detected.
Final report to follow in four to five weeks.
03/04/25 16:10 CSF Culture - Final
Csf No Growth After 5 Days - Final Report
Gram Stain - Final
03/04/25 16:10 Meningitis/Encephalitis Panel (PCR) - Final
Csf
03/02/25 05:57 Influenza Types A & B (FABRIZIO) - Final
Nasal Swab Negative for Influenza A & B, NAAT
Negative results must be combined with clinical observations
and patient history.
Nucleic Acid Amplification test (NAAT)performed on the
[employer]VA platform.
CSF
03/04/25
16:10
CSF West Nile IgM Ab 9.57 H
Imaging:
03/02/2025 MRI brain with and without contrast: no MRI evidence for acute infarct. Large region of encephalomalacia in the right temporal and occipital lobes consistent with a large chronic transcortical infarct. Moderate sized band of
encephalomalacia in the periventricular right frontal lobe and right basal ganglia consistent with a chronic hemorrhagic infarct or resolved hypertensive intraparenchymal hemorrhage. Mild volume loss in the left cerebral hemisphere and cerebellum.
Please see full dictation for additional detail.
03/03/2025 CXR (portable): heart is mildly enlarged. Moderate amount of focal perihilar ground glass opacity in the left upper lobe, which appears to have increased compared with the prior radiographic examinations.
--- NOTE | 2025-03-10 09:39 | CM ---
Patient seen at bedside with present in IMU. Patient smiled and attempted to push glasses up his nose, stated that he was making slow progress. CM will continue to follow for discharge planning needs.
Plan; SNF vs [facility] pending medical treatment plan
[2025-03-10] MEDS: DULCOLAX 10 MG RECTAL (09:46)
[2025-03-10] MEDS: KCL 40 MEQ PO (09:46)
--- NOTE | 2025-03-10 09:46 | W.PN.HOSP.TC ---
Today's Communication/Plan
-
check ABG, UA to evaluate CO2 retention, UTI as cause of ongoing lethargy/sleepiness. Neuro to re-evaluate
encourage stimulation, wake cycles. Consider OOBTC if ok with PT/OT. Reviewed with RN.
Assessment / Plan
Assessment / Plan
Assessment:
Acute west Nile encephalitis
- presented with confusion/weakness
- possible bird reservoir
- ID following; supportive care
- ongoing sleepiness; check ABG, UA. will ask Neurology to re-evaluate
breakthrough Seizure
Hx of prior CVA and Seizure
- continue Valproic acid (previously on Keppra)
- MRI brain negative
Constipation with possible fecal impaction
- s/p MoM enema 03/09 with 3 BMs
- continue bowel regimen
Bilateral pulmonary reticulonodular increased markings
- x-ray also showed small bilateral pleural effusion including fluid in the fissures and indistinctness of the central pulmonary vasculature or raising concern for pulm edema.
- s/p IV Lasix course; continue oral Lasix
- Cards signed off
Hypokalemia
- replete
Left upper new pulmonary infiltrate compared to admission chest x-ray
- Patient had a seizure and this raises concern for aspiration pneumonitis/pneumonia. No further fevers and normalized white count. Repeat chest x-ray shows resolution. Hold further antibiotics.
Hx of stroke and A-fib
- continue Eliquis
Essential HTN
- continue losartan
BPH on medication
Acute urinary retention
- Hematuria with a reattempt of Pederson insertion possible traumatic
- Continue with Pederson now. Hematuria clear.
- Urology managing and patient will keep Pederson until cleared by Urology
DVT ppx: Eliquis
Code: Full
Anticipated Discharge: > 48 hours
Subjective/Interval History
-
Date of Service: March 10, 2025
resting comfortably
periods of sleepiness/drowsiness
+ BM with enema yesterday
Objective Data
-
Labs:
Laboratory Results
03/10/25
06:08
WBC 10.9 H
Hgb 15.1
Hct 48.3
Plt Count 365 D
Sodium 140
Potassium 3.4 L
Chloride 107
Carbon Dioxide 28
BUN 23 H
Creatinine 0.5 L
Glucose 108 H
Calcium 8.8
Vital Signs:
Vital Signs
Temp Pulse Resp BP Pulse Ox
99.5 F 108 14 161/81 96
03/10/25 08:13 03/10/25 08:36 03/10/25 06:00 03/10/25 08:37 03/10/25 03:08
I&O
03/09/25 03/10/25 03/11/25
06:59 06:59 06:59
Intake Total 480 / 480
Output Total 450 / 450 1775 / 1775
Balance -450 / -450 -1295 / -1295
Physical Exam
-
General: No Apparent Distress
HEENT: Normocephalic and Atraumatic
Respiratory: Negative Wheezes
Cardiac: Regular Rhythm and S1/S2
GI: Soft
Neuro: AO x 3
Psych: Calm
Data Reviewed
-
Total Time Spent with Patient (in minutes): 41
Labs: Labs Reviewed by me
--- NOTE | 2025-03-10 10:14 | CON.MR ---
Documented by User: Leslie Mejia MD, Resident 03/10/25 16:31
Consultation
Consultation Request
Date/Time Consultation Requested: 03/09/25
Date/Time Consultation Performed: 03/10/25
Requesting Provider: Tereso Fernandez
Performing Provider: Dr. Best
Reason for Consultation: acute rehab placement
Medical History
-
Chief Complaint: debility, altered mental status and weakness
History of Present Illness:
Mr. Vargas is a 74-year-old male with past medical history significant for prior right MCA stroke with minimal residual deficits including mild lower extremity weakness and some intermittent confusion, atrial fibrillation on anticoagulation, history
of grand mal seizure status post stroke for which he is currently on Keppra who presented to the emergency department via spouse for worsening weakness and confusion over 1 week.
According to spouse patient was driving and in usual state of health up until very recently including the last few days. He initially stated that he was dragging his foot more on his feet where heavy. His weakness worsened and they started to
appear more confused. Spouse denies any recent travels or known sick contacts. She initially did not report any rash but was he was found to have a petechial rash in the bilateral shins.
In the hospital patient was started on antibiotics and antivirals for concerns of meningitis and encephalitis, he was evaluated by neurology, ID, cardiology, and urology. on HOD1 patient had an episode of seizure and keppra was changed to valproic
acid. EEG was also performed but was negative. [facility] MRI showed no evidence of acute infarct and large regions of encephalomalacia in the right temporal, occipital, periventircular frontal lobes, and right basal ganglia. ID's infectious work up
included LP which was negative for HSV and VZV but positive for west nile virus. Antibiotics and antivirals were discontinued after CSF serology returned and supportive care was continued. Cardiology was consulted for bilateral pulmonary effusions
and elevated proBNP and concerns for HF, IV diuresis was started, and echo showed EF of 60-65%. Patient was transitioned to PO lasix, eliquis was restarted, and amlodipine was added for additional BP control. While in the hospital, he also had
urinary retention with hx of BPH and was a difficult mccauley requiring a urology consult. Mccauley currently in place to be removed by urology prior to DC.
Past Medical History
Past Medical History: Arrhythmias (permanent afib on anticoagulation), CVA (MCA 2018), HTN, Hypercholesterolemia and Other (Seizures, BPH)
Past Surgical History: Appendectomy
Family History
Family History: Reviewed & Not Pertinent
Social History
Functional Level Premorbidity:
Independent for all activities.
Driving
Current Funct Level: Ambulation, Transfer, UE/LE Dressing:
Bed mobility supine to sit max assist
Transfers moderate assist; stand/pivot/sit max assist
Ambulation sidestep 2 feet with rolling walker, max assist of 2
Tobacco: Smoker (Cigars)
Alcohol: Occasional
Drug: None
Personal:
Living: With Spouse
Is 24 hour care available: Yes
Number of Floors: 2
# Steps to Enter: 1
# Steps to Second Floor: 6
Potential First Floor Set Up: Yes
Driving: Yes
Employment: Retired
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
Allergies / Home Medications
Allergy/AdvReac Type Severity Reaction Status Date / Time
No Known Allergies Allergy Unverified 09/19/21 06:45
�Medication �Instructions �Recorded �Confirmed �Last Taken �Type
acetaminophen 500 mg tablet 1,000 mg PO Q6HPRN PRN mild pain 07/11/19 03/02/25 08/21/23 History
(Tylenol Extra Strength)
alfuzosin 10 mg tablet,extended 10 mg PO HS Urinary Issue 07/11/19 03/02/25 08/20/23 History
release 24 hr (Uroxatral)
apixaban 5 mg tablet (Eliquis) 5 mg PO BID Blood Clot 07/11/19 03/02/25 08/21/23 History
Prevention/Tx
escitalopram oxalate 20 mg tablet 20 mg PO DAILY depression/anxiety 07/11/19 03/02/25 08/21/23 History
finasteride 5 mg tablet 5 mg PO HS Urinary Issue 07/11/19 03/02/25 08/20/23 History
psyllium husk 3.4 gram oral powder 1 packet PO DAILY Constipation 07/11/19 03/02/25 08/21/23 History
packet (Metamucil Fiber
(aspartame))
rosuvastatin 5 mg tablet 5 mg PO WE cholesterol 07/11/19 03/02/25 08/15/23 History
levetiracetam 500 mg tablet 1,000 mg (2 x 500 mg) PO BID #120 07/13/19 03/02/25 08/21/23 Rx
tabs
losartan 100 mg tablet 100 mg PO DAILY Blood Pressure 08/21/23 03/02/25 08/21/23 History
Review Of Systems
-
Unable to obtain full review of systems at this time due to: Acuity
History Source: Patient and Family
Constitutional: Reports Fatigue; Denies Fever
Eye: Reports No Symptoms
EENT: Reports No Symptoms; Denies Tearing or Sore Throat
Respiratory: Reports No Symptoms; Denies Cough or Trouble Breathing
Cardiac: Reports No Symptoms; Denies Chest Pain, Diaphoresis or Palpitations
Abdomen/GI: Reports Constipated; Denies Abdominal Pain, Nausea or Vomiting
: Reports Difficulty Voiding
Musculoskeletal: Reports No Symptoms; Denies Joint Pain or Muscle Pain
Integumentary: Reports No Symptoms
Neurological: Reports No Symptoms and Weakness
Psych: Reports No Symptoms
Physical Exam
Active Medications
Generic Name Dose Route Start Last Admin
Trade Name Freq PRN Reason Stop Dose Admin
Acetaminophen 650 mg 03/02/25 07:48 03/07/25 19:42
Acetaminophen 325 Mg Tablet PO 03/30/25 07:47 650 mg
Q4HPRN PRN Administration
mild pain/CAI/temp> 100.4F
Acetaminophen 650 mg 03/03/25 10:02
Acetaminophen 650 Mg Rectal Suppository RECTAL 03/31/25 10:01
Q4HPRN PRN
pain/fever >100.4
Amlodipine Besylate 5 mg 03/06/25 11:00 03/10/25 08:37
Amlodipine 5 Mg Tablet PO 04/03/25 10:59 5 mg
DAILY LEIA Administration
Apixaban 5 mg 03/02/25 08:00 03/10/25 08:36
Apixaban (Eliquis) 5 Mg Tablet PO 03/30/25 07:59 5 mg
BID LEIA Administration
Bisacodyl 10 mg 03/02/25 07:48 03/10/25 09:46
Bisacodyl 10 Mg Rectal Suppository RECTAL 03/30/25 07:47 10 mg
[id number] PRN Administration
constipation
Escitalopram Oxalate 20 mg 03/02/25 08:00 03/10/25 08:37
Escitalopram 20 Mg Tablet PO 03/30/25 07:59 20 mg
DAILY LEIA Administration
Finasteride 5 mg 03/02/25 22:00 03/09/25 21:35
Finasteride 5 Mg Tablet PO 03/30/25 21:59 5 mg
HS LEIA Administration
Furosemide 20 mg 03/06/25 08:00 03/10/25 08:36
Furosemide 20 Mg Tablet PO 04/03/25 07:59 20 mg
DAILY LEIA Administration
Hydralazine HCl 5 mg 03/05/25 15:05 03/10/25 01:18
Hydralazine 20 Mg/Ml Vial IV 04/02/25 15:04 5 mg
Q6HPRN PRN Administration
sbp>150 or dbp>100
Valproate Sodium 1,000 mg/ 60 mls @ 60 mls/hr 03/02/25 20:00 03/10/25 08:33
Sodium Chloride IV 03/30/25 19:59 60 mls
Q12H LEIA Administration
Losartan Potassium 100 mg 03/02/25 08:00 03/10/25 08:36
Losartan 100 Mg Tablet PO 03/30/25 07:59 100 mg
DAILY LEIA Administration
Ondansetron HCl 4 mg 03/02/25 07:48 03/02/25 10:32
Ondansetron 4 Mg/2 Ml Vial IV 03/30/25 07:47 4 mg
Q6HPRN PRN Administration
nausea and vomiting
Oxycodone HCl 5 mg 03/07/25 23:39 03/09/25 03:03
Oxycodone 5 Mg Regular Release Tablet PO 03/21/25 23:38 5 mg
Q4HPRN PRN Administration
severe pain
Polyethylene Glycol 17 grams 03/02/25 07:48 03/07/25 22:05
Polyethylene Glycol Powder 17 Grams Packet PO 03/30/25 07:47 17 grams
DAILYPRN PRN Administration
constipation
Psyllium Hydrophilic Mucilloid 1 packet 03/02/25 08:00 03/10/25 08:36
Psyllium Packet PO 03/30/25 07:59 1 packet
DAILY LEIA Administration
Rosuvastatin Calcium 5 mg 03/04/25 08:00 03/04/25 07:50
Rosuvastatin (Crestor) 5 Mg Tablet PO 04/01/25 07:59 Not Given
WE LEIA
Senna/Docusate Sodium 1 tablet 03/02/25 07:48 03/07/25 22:05
Docusate W/Senna (Karen-Colace) Tablet PO 03/30/25 07:47 1 tablet
BIDPRN PRN Administration
constipation
Sodium Chloride 0 flush 03/02/25 17:00 03/08/25 04:40
Sodium Chloride 0.9% (Flush) Syringe IV 03/30/25 16:59 1 flush
PER PROTOCOL LEIA Administration
Tamsulosin HCl 0.4 mg 03/02/25 22:00 03/09/25 21:35
Tamsulosin 0.4 Mg Capsule PO 03/30/25 21:59 0.4 mg
HS LEIA Administration
Vital Signs
Temp Pulse Resp BP Pulse Ox
99.5 F 108 14 161/81 96
03/10/25 08:13 03/10/25 08:36 03/10/25 06:00 03/10/25 08:37 03/10/25 03:08
Height 5 ft 7 in
Actual Weight 85.9 kg
Body Mass Index (BMI) 29.7
Physical Exam
Physical Exam:
General Appearance/Observation: Well-developed, well-nourished individual in no apparent distress.
Pain/Comfort Assessment: Denies
Mood/Affect: Appropriate
Integumentary/Operative Site:
Pressure Ulcer: absent
Other Type of Wound: absent
Eyes: Conjunctiva/Lids: normal Pupils: pupils equal round and reactive to light and Accommodation
Ears/Nose/Throat: oral mucosa dry, throat clear. Lips/Teeth/Gums: normal
Neck: No muscle spasm or tenderness
Cardiovascular: Heart: regular, no murmur
Pulses: dorsalis pedis 2+ bilaterally
Respiratory: Respiratory Effort/Chest Expansion: normal Auscultation: Clear to auscultation bilaterally
Gastrointestinal: abdomen not tender, no distension, normal abdominal bowel sounds
Genitourinary: Mccauley present
Rectal Exam: Deferred
Extremities: Edema: None Cyanosis: None Trophic changes: None
Neurology Exam:
Orientation: Alert, Oriented to self, Time, Place
Memory: Intact immediately and absent at 3 minutes
Higher cortical function
Speech: Intact
Repetition: Intact
Comprehension: Intact
Two step command: Intact
Naming: Intact
Cranial Nerves:
CNII: Pupillary light reflex: Intact Visual Field: difficult to assess, patient drowsy
CN III, IV, : Extraocular muscles: difficult to assess
CN V: Facial Sensation at Forehead: Intact , Maxilla: Intact, Mandible: Intact
CN VII: Facial movement: Symmetric
CN VIII: Hearing: Normal, hearing difficulties at baseline
CN IX/X: Speech & swallow: Normal, Position of Uvula: Midline
CN XI: Shoulder shrug: Symmetric
CN XII: Tongue protrusion: Midline
Sensory:
Light touch: Intact in bilateral upper and lower extremities
Pinprick: Deferred
Proprioception: Intact
Temperature: Deferred
Reflexes:
Biceps: 0 bilaterally
Brachioradialis: 0 bilaterally
Triceps: 0 bilaterally
Patellar: 0 bilaterally
Achilles: 0 bilaterally
Babinski: Downgoing bilaterally
Clonus: None
Ry: Negative bilaterally
Cerebellar: Dysmetria/Ataxia: None, patient very slow
Musculoskeletal:
Motor: (Manual muscle scale 0-5)
Muscle SA EF WE EE FF FA HF KE DF EHL PF
Right 4 4 4 4 4 4 4 4 4 4 4
Left 4 4 4 3 4 4 3 3 4 4 4
Tone: Normal in all extremities
Range of Motion: Passively within normal limits in all extremities
Lab Results
03/10/25 06:08
03/10/25 06:08
WBC 10.9 10^3/uL (4.8-10.8) H 03/10/25 06:08
Hgb 15.1 g/dL (13.0-18.0) 03/10/25 06:08
Hct 48.3 % (39.0-52.0) 03/10/25 06:08
MCV 71.9 fL (80.0-94.0) L 03/10/25 06:08
Plt Count 365 10^3/uL (130-400) D 03/10/25 06:08
ESR 4 mm/hour (0-20) 03/02/25 05:57
PT 12.8 Sec (11.4-14.6) 03/03/25 11:26
INR 0.94 03/03/25 11:26
Sodium 140 mmol/L (135-145) 03/10/25 06:08
Potassium 3.4 mmol/L (3.5-5.1) L 03/10/25 06:08
Chloride 107 mmol/L (98-107) 03/10/25 06:08
Carbon Dioxide 28 mmol/L (22-30) 03/10/25 06:08
BUN 23 mg/dl (9-20) H 03/10/25 06:08
Creatinine 0.5 mg/dL (0.7-1.3) L 03/10/25 06:08
eGFR > 60.00 03/10/25 06:08
Glucose 108 mg/dl (70-99) H 03/10/25 06:08
Hemoglobin A1c 6.2 % (4.0-5.6) H 03/02/25 05:57
Calcium 8.8 mg/dl (8.4-10.2) 03/10/25 06:08
Magnesium 2.0 mg/dl (1.6-2.3) 03/02/25 21:45
Total Bilirubin 0.9 mg/dl (0.2-1.3) 03/05/25 03:31
AST 69 U/L (17-59) H 03/05/25 03:31
ALT 46 U/L (0-50) 03/05/25 03:31
Alkaline Phosphatase 68 U/L (38-126) 03/05/25 03:31
C-Reactive Protein 22.40 mg/L (0.0-10.00) H 03/02/25 05:57
Total Protein 6.8 g/dl (6.3-8.2) 03/05/25 03:31
Albumin 3.6 g/dl (3.5-5.0) 03/05/25 03:31
Diagnostic Results
As per HPI.
Comorbidities / Impairment Group
Comorbidities:
Impairment Group:
Assessment / Plan
Plan
PM&R PT/OT to increase independence with ADLs, improve balance, coordination, endurance, strength, mobility, community reintegration, decreased burden of care on others and family education.
Debility: Continue working with PT OT to increase independence with ADLs
Dysphagia: speech evaluation, oral care protocol, chlorhexidine rinse after meals and HS, aspiration precautions. Advance diet as tolerated.
Dysarthria: speech evaluation
Seizures: Continue valproic acid monitor seizures, seizure precautions
Hard of hearing: Patient is having difficulty with hearing and we discussed the need for hearing aids to properly engage in conversations and not be dismissed by others because not able to understand what they're saying. This can lead to isolation,
depression and cognitive decline. Suggest ENT/audiology evaluation.
HTN: continue medications, monitor closely
HLD: Statin
Atrial fibrillation: Continue anticoagulation and rate control medications.
Skin: monitor for pressure sores/rashes/lesions.
Pain: acetaminophen or oxycodone as needed.
Bowel: PRN Colace and Senna, PRN bisacodyl.
Bladder: mccauley in place, to be removed by urology
Tobacco Abuse: Smoking cessation counseling. Need to find out why smoking whether it is nicotine withdrawal, habit, or oral fixation.
GI Prophylaxis: Pantoprazole
DVT Prophylaxis: Note chemoprophylaxis (or if not SCDs and when chemotherapy prophylaxis can start).
Safety: Continue to reinforce assistance with all transfers.
Code Status: Full code
Dispo: acute rehab
Functional and Medical Goals: Modified Independent with ADL�s, ambulation, transfers
Summary
-
Things that must be addressed in Hospital prior to discharge:
Patient must be stable on oral pain medications.
Blood pressure must be less than 180 systolic and 100 diastolic for 24 hours before being stable for transfer to SNF/acute rehab.
Please give blood pressure parameters.
Please comment on dvt chemoprophylaxis restrictions.
Discharge Destination: Acute rehab
Summary of recommendations:
- Discharge Destination: Acute rehab
patient would benefit from acute rehab once medically stable to increase independence with ADLs, improve balance, coordination, endurance, strength, mobility, community reintegration, decreased burden of care on others and family education
Will continue to follow patient.
Thank you for allowing me to care for your patient. Please contact me with any questions or concerns.
Comments
-
This note was dictated using a voice recognition system. Please excuse any typographical errors from kindergarten assistant. If you believe there are any discrepancies, please notify our office.

Documented by User: Gelacio Best MD 03/11/25 00:10
Medical History
-
History of Present Illness:
Mr. Vargas is a 74-year-old male with past medical history significant for prior right MCA stroke with minimal residual deficits including mild lower extremity weakness and some intermittent confusion, atrial fibrillation on anticoagulation, history
of grand mal seizure status post stroke for which he is currently on Keppra who presented to the emergency department via spouse for worsening weakness and confusion over 1 week.
According to spouse patient was driving and in usual state of health up until very recently including the last few days. He initially stated that he was dragging his foot more on his feet where heavy. His weakness worsened and they started to
appear more confused. Spouse denies any recent travels or known sick contacts. She initially did not report any rash but was he was found to have a petechial rash in the bilateral shins.
In the hospital patient was started on antibiotics and antivirals for concerns of meningitis and encephalitis, he was evaluated by neurology, ID, cardiology, and urology. Patient had an episode of seizure and keppra was changed to valproic acid. EEG
was also performed but was negative. [facility] MRI showed no evidence of acute infarct and large regions of encephalomalacia in the right temporal, occipital, periventircular frontal lobes, and right basal ganglia. ID's infectious work up included LP
which was negative for HSV and VZV but positive for west nile virus. Antibiotics and antivirals were discontinued after CSF serology returned and supportive care was continued. Cardiology was consulted for bilateral pulmonary effusions and elevated
proBNP and concerns for HF, IV diuresis was started, and echo showed EF of 60-65%. Patient was transitioned to PO lasix, eliquis was restarted, and amlodipine was added for additional BP control. While in the hospital, he also had urinary retention
with hx of BPH and was a difficult mccauley requiring a urology consult. Mccauley currently in place to be removed by urology prior to DC.
Physical Exam
Physical Exam
Physical Exam:
General Appearance/Observation: Well-developed, well-nourished male in no apparent distress.
Pain/Comfort Assessment: Denies
Mood/Affect: Appropriate
Integumentary/Operative Site: Generalized red skin color
Eyes: Conjunctiva/Lids: normal Pupils: pupils equal round and reactive to light and Accommodation
Ears/Nose/Throat: oral mucosa dry, throat clear. Lips/Teeth/Gums: normal
Neck: No muscle spasm or tenderness
Cardiovascular: Heart: regular, no murmur
Pulses: dorsalis pedis 2+ bilaterally
Respiratory: Respiratory Effort/Chest Expansion: normal Auscultation: Clear to auscultation bilaterally
Gastrointestinal: abdomen not tender, no distension, normal abdominal bowel sounds
Genitourinary: Mccauley present
Rectal Exam: Deferred
Extremities: Edema: None Cyanosis: None Trophic changes: None
Neurology Exam:
Orientation: Alert, Oriented to self, Time, Place
Memory: Intact immediately and absent at 3 minutes
Repetition: Intact
Comprehension: Intact
Two step command: Intact
Naming: Intact
Cranial Nerves:
CNII: Pupillary light reflex: Intact Visual Field: intact
CN III, IV, : Extraocular muscles: difficult to assess
CN V: Facial Sensation at Forehead: Intact , Maxilla: Intact, Mandible: Intact
CN VII: Facial movement: Symmetric
CN VIII: Hearing: Normal, hearing difficulties at baseline
CN IX/X: Speech & swallow: Normal, Position of Uvula: Midline
CN XI: Shoulder shrug: Symmetric
CN XII: Tongue protrusion: Midline
Sensory:
Light touch: Intact in bilateral upper and lower extremities
Proprioception: Intact
Reflexes:
Biceps: 0 bilaterally
Brachioradialis: 0 bilaterally
Triceps: 0 bilaterally
Patellar: 0 bilaterally
Achilles: 0 bilaterally
Babinski: Downgoing bilaterally
Clonus: None
Ry: Negative bilaterally
Cerebellar: Dysmetria/Ataxia: None, patient very slow
Musculoskeletal:Motor: (Manual muscle scale 0-5)
Muscle SA EF WE EE FF FA HF KE DF EHL PF
Right 4 4 4 4 4 4 4 4 4 4 4
Left 4 4 4 3 4 4 3 3 4 4 4
Tone: Normal in all extremities
Range of Motion: Passively within normal limits in all extremities
Assessment / Plan
Assessment
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
hospital course significant for bilateral pulmonary effusions, cardiomyopathy, hypertension, and urinary retention resulting in ADL, ambulatory, and cognitive dysfunction.
Plan
PM&R PT/OT to increase independence with ADLs, improve balance, coordination, endurance, strength, mobility, community reintegration, decreased burden of care on others and family education.
West Nile encephalitis: Supportive management
Cognitive dysfunction: PT and speech
Debility: Continue working with PT OT to increase independence with ADLs
Dysphagia: speech, oral care protocol, aspiration precautions. Upgraded to regular and thin liquid diet with aspiration precautions
Seizures: valproic acid monitor seizures, seizure precautions
Hard of hearing: Has hearing aids
HTN: Amlodipine 5 mg daily, Lasix 20 mg daily, losartan 100 mg daily, monitor closely
HLD: Statin
Atrial fibrillation: Eliquis anticoagulation and no rate control medications.
Cardiomyopathy: Lasix, losartan, monitor weight, recheck BNP
Psych: Lexapro
Skin: monitor for pressure sores/rashes/lesions.
Pain: acetaminophen or oxycodone as needed.
Bowel: Psyllium daily. Suggest Colace and Senna changed to standing, with constipation. PRN bisacodyl.
Bladder: mccauley in place, to be removed by urology. Has BPH on Flomax and Proscar.
Tobacco Abuse: Smoking cessation counseling. Need to find out why smoking whether it is nicotine withdrawal, habit, or oral fixation.
GI Prophylaxis: Pantoprazole
DVT Prophylaxis: Mechanical and Eliquis
Safety: Continue to reinforce assistance with all transfers.
Code Status: Full code
Dispo: acute rehab
Functional and Medical Goals: Modified Independent with ADL�s, ambulation, transfers
Attending Statement: I performed a history and examined the patient 03/10/25.� I reviewed the care plan with therapy, nursing, and the resident.� I agree with the history and ROS above as modified.� The physical exam and plan documented reflects my
examination and plan. �A total of 60 minutes were spent with the patient preparing for the evaluation, obtaining history, performing examination and evaluation, counseling, data review, case management, care coordination, computerized mill recorder, and EMR
documentation.
Summary
-
Discharge Destination: Acute rehab
Summary of recommendations:
- Discharge Destination: Acute rehab
patient would benefit from acute rehab once medically stable to increase independence with ADLs, improve balance, coordination, endurance, strength, mobility, community reintegration, decreased burden of care on others and family education
Will continue to follow patient.
Thank you for allowing me to care for your patient. Please contact me with any questions or concerns.
[2025-03-10 10:45] LABS: B.E. 4.6 mmol/L; HCO3 26.2 mmol/L (21-28); O2 Saturation % 99.6 % (94-98); PCO2 30 mmHg (35-48); PO2 155 mmHg (83-108)
--- NOTE | 2025-03-10 11:00 | PTOTSP ---
Speech Language Pathology
Pt seen for dysphagia tx. present at bedside. and pt reported significant dislike for current diet with resultant decreased P.O. intake. Pt sleeping in recliner upon arrival, but roused adequately. Trialed regular solids and thin
liquids. Pt took half of cracker a once, and confirmed this is baseline rate of intake. Adequate mastication, bolus formation, and A-P transit noted. Mild diffuse oral residue, which cleared with a liquid wash. Brief throat clear x1 with
liquid wash.
Recommend:
(1) Upgrade to regular solids/thin liquids
(2) Aspiration precautions: sit upright, slow rate, full supervision with assist as needed, ensure oral cavity clear post P.O. intake
(3) Meds as tolerated
(4) DIRECTOR OF LEADERSHIP DEVELOPMENT to continue to follow
[2025-03-10 12:26] LABS: Urine Character Clear (Clear)
--- NOTE | 2025-03-10 13:00 | PN.CDI ---
CDI
- -
CDI:
Physician Documentation Request
Admit Date: 03/02/25 05:28
Dear Doctor Trudy,
Patient admitted for acute west nile encephalitis.
03/06 Urology Consult: 'he remains somnolent and in bed- per protocol mccauley was removed and eliquis was restarted, pt unable to void and nurses unable to cath with attempts resulting in sig urethral blood...hold eliquis for at least 24hrs and trend
hematuria'
Please clarify the relationship between these conditions:
Yes, hematuria is related to/associated with/exacerbated by Eliquis.
No, hematuria is not related to/associated with/exacerbated by Eliquis
Unable to determine
Use of terms such as suspected, likely, concern for, or probable (associated with a specific diagnosis that is being evaluated, monitored, or treated as if it exists) are acceptable and can be coded in the inpatient setting, when documented at the
time of discharge.
Thank you,
Kaye Serrato RN, BSN
CDI Specialist
Available via [facility] text
Please use your independent medical judgment in providing your response.
[2025-03-10 14:19] LABS: Urine Squamous Cell 0-2 /LPF (Few)
[2025-03-10 14:20] LABS: Urine Red Blood Cell 0-2 /HPF (0-2)
--- NOTE | 2025-03-10 17:03 | PTCARENOTE ---
Patient up to chair today for 2 hours. Pt needed assist x3 to get back to bed. Pt given Dulcolax suppository at request of , no BM. Pt ordered EEG, continuous, remains intact. Pt's mental status waxes and wanes, with being aaox2 to drowsy.
Pederson maintained. at bedside and updated. Assessment, care and VS as charted.
--- NOTE | 2025-03-10 17:22 | EEG.RPT ---
Electroencephalogram Report
Recording
Date of EE03/10/25
Type of EEG: Extended Monitoring
Length of EEG recordin mins
Patient Status: Inpatient
Recording Conditions: Awake
Hyperventilation Performed: No
Photic Stimulation Performed: Yes
Report
Clinical Background:�He is a 74 year old man with seizures, West Nile encephalitis, persistent altered mental status
Introduction: A >1 hr bedside EEG was done using International 10-20 electrode placement protocol.
Background: In the most alert state, there is continuous generalized polymorphic theta, with some admixed delta. There is spontaneous variability and reactivity.�
Sleep: no sleep is seen.�
Focal/epileptiform: There were no focal or epileptiform discharges. No clinical or electrographic seizures occurred during this recording.
Photic stimulation: resulted in normal driving response. There was no photo myogenic or photoparoxysmal response.�
Impression: Continuous generalized slowing. mild generalized cerebral dysfunction.
[2025-03-10] MEDS: PROSCAR 5 MG PO (19:48)
[2025-03-10] MEDS: FLOMAX 0.4 MG PO (19:48)
[2025-03-11] VITALS (14 sets, daily range): BP systolic 109–153; BP diastolic 69–111; BMI 30.1
--- NOTE | 2025-03-11 04:46 | PTCARENOTE ---
Pt mental status continues to wax and wane. Q4H neuro checks maintained. Continuous EEG maintained. Pederson catheter remains in place. Pt inc of loose brown BMs. Call argueta within reach. Bed alarm in place for pt safety. Care ongoing.
[2025-03-11 07:02] LABS: Hematocrit 46.3 % (39.0-52.0); Hemoglobin 14.6 g/dL (13.0-18.0); Mean Corp Hgb Conc. 31.5 g/dL (33.0-37.0); Mean Corpuscular Volume 72.2 fL (80.0-94.0); Platelet Count 357 10^3/uL (130-400); Red Cell Dist. Width 18.6 % (11.5-14.5)
[2025-03-11 07:32] LABS: Blood Urea Nitrogen 26 mg/dl (9-20); Calcium 8.9 mg/dl (8.4-10.2); Carbon Dioxide 30 mmol/L (22-30); Chloride 104 mmol/L (98-107); Estimated Creatinine Clearance 114 ml/min; Glucose 99 mg/dl (70-99); Potassium 3.9 mmol/L (3.5-5.1); Sodium 137 mmol/L (135-145); eGFR > 60.00
--- NOTE | 2025-03-11 08:32 | W.PN.ID1 ---
Date of Service
Date of Service: March 11, 2025
Today's Communication
Continue supportive measures
Assessment / Plan
WNV Encephalitis - improving
Leukocytosis - low-grade
Elevated CRP
A-fib
Hx CVA
HTN
Seizure disorder
BPH
Recommendations:
Serum/CSF West Nile Virus IgM positive.
Lumbar puncture abnormal. 73 WBC, 70% lymphs. Pleocytosis is suggestive of a viral etiology. Meningitis panel by PCR negative, including HSV and VZV.
Full CSF arbovirus panel pending.
Serum Lyme screen positive; western blot (+) IgG / (-) IgM, consistent with old exposure. Serum Lyme DNA neg.
Continue with supportive care. There is no specific antiviral treatment for West Nile virus
Monitor mental status.
Will continue to follow along with you peripherally.
����������������������������������������������������������
Chief Complaint
-: Other (West nile encephalitis)
Subjective / Review of Systems
Review of Systems: No Fever and No Chills
Vital Signs / Physical Exam
Vital Signs
Vital Signs
Temp Pulse Resp BP Pulse Ox
98.2 F 90 17 147/78 98
03/11/25 02:35 03/11/25 06:00 03/11/25 06:00 03/11/25 06:00 03/10/25 21:35
Physical Exam
Constitutional: Comfortable
Eyes: Sclera Anicteric
Cardiovascular: Regular Rate and S1/S2; Negative S3/S4
Pulmonary: Clear
Gastrointestinal: Soft, Non Tender, Non Distended and Normal Bowel Sounds
Extremities: Negative Edema
Neurological: Awake, Alert and Other (Hard of hearing); Negative Meningeal Signs
Psychological: Calm
Objective Data
Lab Data
Lab Results
03/11/25 06:40
03/11/25 06:40
ESR 4 mm/hour (0-20) 03/02/25 05:57
PT 12.8 Sec (11.4-14.6) 03/03/25 11:26
INR 0.94 03/03/25 11:26
Estimated Creat Clear 114 ml/min 03/11/25 06:40
Lactic Acid 1.5 mmol/L (0.7-2.0) 03/02/25 21:45
Total Bilirubin 0.9 mg/dl (0.2-1.3) 03/05/25 03:31
AST 69 U/L (17-59) H 03/05/25 03:31
ALT 46 U/L (0-50) 03/05/25 03:31
Alkaline Phosphatase 68 U/L (38-126) 03/05/25 03:31
C-Reactive Protein 22.40 mg/L (0.0-10.00) H 03/02/25 05:57
Most recent labs reviewed.
Micro Results:
03/04/25 16:10 Fungal Culture - Preliminary
Csf Culture in progress.
Positive cultures are reported as soon as detected.
Final report to follow in four to five weeks.
03/04/25 16:10 CSF Culture - Final
Csf No Growth After 5 Days - Final Report
Gram Stain - Final
03/04/25 16:10 Meningitis/Encephalitis Panel (PCR) - Final
Csf
03/02/25 05:57 Influenza Types A & B (FABRIZIO) - Final
Nasal Swab Negative for Influenza A & B, NAAT
Negative results must be combined with clinical observations
and patient history.
Nucleic Acid Amplification test (NAAT)performed on the
[employer] platform.
CSF
03/04/25
16:10
CSF West Nile IgM Ab 9.57 H
Imaging:
03/02/2025 MRI brain with and without contrast: no MRI evidence for acute infarct. Large region of encephalomalacia in the right temporal and occipital lobes consistent with a large chronic transcortical infarct. Moderate sized band of
encephalomalacia in the periventricular right frontal lobe and right basal ganglia consistent with a chronic hemorrhagic infarct or resolved hypertensive intraparenchymal hemorrhage. Mild volume loss in the left cerebral hemisphere and cerebellum.
Please see full dictation for additional detail.
03/03/2025 CXR (portable): heart is mildly enlarged. Moderate amount of focal perihilar ground glass opacity in the left upper lobe, which appears to have increased compared with the prior radiographic examinations.
[2025-03-11] MEDS: LEXAPRO 20 MG PO (08:41)
[2025-03-11] MEDS: SENOKOT-S 1 TABLET PO ×2 (08:41→19:20)
[2025-03-11] MEDS: ELIQUIS 5 MG PO ×2 (08:41→19:20)
[2025-03-11] MEDS: NORVASC 5 MG PO (08:46)
[2025-03-11] MEDS: COZAAR 100 MG PO (08:47)
[2025-03-11] MEDS: MIRALAX PO (08:48)
[2025-03-11] MEDS: METAMUCIL, KONSYL 1 PACKET PO (08:48)
[2025-03-11] MEDS: DEPACON 60 MG IV (08:48)
[2025-03-11] MEDS: LASIX 20 MG PO (08:49)
--- NOTE | 2025-03-11 09:44 | EEGC.RPT ---
Continuous EEG Report
Recording
Start Date of Data Reviewed: 03/10/25
Start Time of Data Reviewed: 14:01
End Date of Data Reviewed: 03/11/25
End Time of Data Reviewed: :
Type of EEG: Continuous
Done with Video Recording: Yes
Electrocardiogram: Unremarkable
Report
Clinical Background:�He is a 74 year old man with seizures, West Nile encephalitis, persistent altered mental status. with high suspicion for seizures in this clinical situation, he was continued on EEG monitoring overnight.
Introduction: continuous bedside EEG was done using International 10-20 electrode placement protocol.
Background: In the most alert state, there is continuous generalized polymorphic theta, with some admixed delta. There is spontaneous variability and reactivity.�
Sleep: some sleep architecture in the form of sleep spindles are seen
Focal/epileptiform: There were no focal or epileptiform discharges. No clinical or electrographic seizures occurred during this recording.
Photic stimulation: not done
Impression: Continuous generalized slowing. mild generalized cerebral dysfunction.
--- NOTE | 2025-03-11 10:26 | W.PN.HOSP.TC ---
Today's Communication/Plan
-
Dispo planning to [facility]
Assessment / Plan
Assessment / Plan
Assessment:
Acute west Nile encephalitis
- presented with confusion/weakness
- possible bird reservoir
- ID following; supportive care
breakthrough Seizure
Hx of prior CVA and Seizure
- continue Valproic acid (previously on Keppra)
- MRI brain negative
- repeat EEG 03/10 into 03/11 without ongoing seizures, reviewed with Neurology
Constipation with possible fecal impaction
- s/p MoM enema 03/09 with 3 BMs
- continue bowel regimen
Bilateral pulmonary reticulonodular increased markings
- x-ray also showed small bilateral pleural effusion including fluid in the fissures and indistinctness of the central pulmonary vasculature or raising concern for pulm edema.
- s/p IV Lasix course; continue oral Lasix
- Cards signed off
Hypokalemia
- replete
Left upper new pulmonary infiltrate compared to admission chest x-ray
- Patient had a seizure and this raises concern for aspiration pneumonitis/pneumonia. No further fevers and normalized white count. Repeat chest x-ray shows resolution. Hold further antibiotics.
Hx of stroke and A-fib
- continue Eliquis
Essential HTN
- continue losartan
BPH on medication
Acute urinary retention
- Hematuria (associated with Eliquis use) with a reattempt of Pederson insertion possible traumatic
- Continue with Pederson now. Hematuria clear.
- Urology managing and patient will keep Pederson until cleared by Urology
DVT ppx: Eliquis
Code: Full
Anticipated Discharge: > 48 hours
Subjective/Interval History
-
Date of Service: March 11, 2025
resting comfortably, no complaints
less sleepy per
2 hours in chair yesterday
Objective Data
-
Labs:
Laboratory Results
03/11/25
06:40
WBC 11.3 H
Hgb 14.6
Hct 46.3
Plt Count 357
Sodium 137
Potassium 3.9
Chloride 104
Carbon Dioxide 30
BUN 26 H
Creatinine 0.6 L
Glucose 99
Calcium 8.9
Vital Signs:
Vital Signs
Temp Pulse Resp BP Pulse Ox
97.9 F 87 17 153/86 98
03/11/25 07:55 03/11/25 08:49 03/11/25 06:00 03/11/25 08:49 03/10/25 21:35
I&O
03/10/25 03/11/25 03/12/25
06:59 06:59 06:59
Intake Total 480 / 480 540 / 540
Output Total 1775 / 1775 1350 / 1350
Balance -1295 / -1295 -810 / -810
Physical Exam
-
General: No Apparent Distress
HEENT: Normocephalic and Atraumatic
Respiratory: Negative Wheezes
Cardiac: Regular Rhythm and S1/S2
GI: Soft
Genito-urinary: No Costovertebral Tender
Neuro: AO x 3
Psych: Calm
Data Reviewed
-
Total Time Spent with Patient (in minutes): 42
Labs: Labs Reviewed by me
[2025-03-11] MEDS: CRESTOR 5 MG PO (12:03)
[2025-03-11] MEDS: LIDOCAINE 4% PATCH 2 PATCH TOPICAL (12:04)
--- NOTE | 2025-03-11 13:49 | CM ---
Per Attending, patient should be stable for discharge to acute rehab on Sunday; spoke w/ Yi @ [facility] via phone to discuss bed availability
Plan: Discharge to [facility] when medically stable pending bed availability
--- NOTE | 2025-03-11 16:38 | PTCARENOTE ---
Patient has been awake, alert and oriented to person , place and time today with the occasional nap. Patient is able to pull himself up in bed and reposition himself, feed himself after setup. Patient denying pain when asked. Pederson to be discontined
in the morning. EEG completed .
[2025-03-11] MEDS: REMOVE LIDOCAINE PATCH 2 PATCH REMOVE (19:20)
[2025-03-11] MEDS: PROSCAR 5 MG PO (19:20)
[2025-03-11] MEDS: DEPAKOTE (12 HR RELEASE) 1000 MG PO (19:20)
[2025-03-11] MEDS: FLOMAX 0.4 MG PO (19:20)
[2025-03-12] VITALS (23 sets, daily range): BP systolic 76–158; BP diastolic 49–109; PULSE 84–99; O2SAT 97
[2025-03-12 04:48] LABS: Hematocrit 45.4 % (39.0-52.0); Hemoglobin 14.3 g/dL (13.0-18.0); Mean Corp Hgb Conc. 31.5 g/dL (33.0-37.0); Mean Corpuscular Volume 72.3 fL (80.0-94.0); Platelet Count 335 10^3/uL (130-400); Red Cell Dist. Width 18.5 % (11.5-14.5)
[2025-03-12] MEDS: APRESOLINE 5 MG IV (04:56)
[2025-03-12 05:11] LABS: Blood Urea Nitrogen 21 mg/dl (9-20); Calcium 8.2 mg/dl (8.4-10.2); Carbon Dioxide 31 mmol/L (22-30); Chloride 105 mmol/L (98-107); Estimated Creatinine Clearance 114 ml/min; Glucose 99 mg/dl (70-99); Potassium 3.4 mmol/L (3.5-5.1); Sodium 138 mmol/L (135-145); eGFR > 60.00
--- NOTE | 2025-03-12 07:55 | W.PN.URO.CBU ---
Today's Communication / Plan
-
voiding trial
Assessment / Plan
-
BPH
urinary retention
traumatic cath attempt with bleeding
continue prostate meds
mccauley out today for TOV
Diagnosis
-
Date of Service: March 12, 2025
-
Patient Diagnosis:
BPH
urinary retention
encephalopathy
Subjective
-
pt asleep, but nurses report yesterday he was UOOB and alert
urine has been clear
mccauley removed this am
Objective
-
Vital Signs
Temp Pulse Resp BP Pulse Ox
97.9 F 93 19 152/109 98
03/12/25 07:31 03/12/25 07:19 03/12/25 07:19 03/12/25 07:19 03/12/25 05:49
Intake and Output
03/11/25 03/12/25 03/13/25
06:59 06:59 06:59
Intake Total 540 / 540 340 / 340
Output Total 1350 / 1350 1700 / 1700
Balance -810 / -810 -1360 / -1360
Intake:
Oral fluids 480 / 480 240 / 240
IV fluids (Total) 100 / 100
IV piggybacks 60 / 60
Output:
Urine, Mccauley 1350 / 1350 1700 / 1700
Laboratory Results
03/12/25 04:32
03/12/25 04:32
Physical Exam
-
General - sleeping, no acute distress
t
[2025-03-12] MEDS: ELIQUIS 5 MG PO ×2 (08:39→19:12)
[2025-03-12] MEDS: LASIX 20 MG PO (08:39)
[2025-03-12] MEDS: DEPAKOTE (12 HR RELEASE) 1000 MG PO ×2 (08:40→19:12)
[2025-03-12] MEDS: SENOKOT-S 1 TABLET PO ×2 (08:40→19:13)
[2025-03-12] MEDS: LEXAPRO 20 MG PO (08:41)
[2025-03-12] MEDS: NORVASC 5 MG PO (08:41)
[2025-03-12] MEDS: COZAAR 100 MG PO (08:41)
[2025-03-12] MEDS: METAMUCIL, KONSYL 1 PACKET PO (08:41)
[2025-03-12] MEDS: LIDOCAINE 4% PATCH 2 PATCH TOPICAL (08:42)
--- NOTE | 2025-03-12 08:55 | CM ---
Addendum entered by Janay Olivares 03/13/25 08:29:
spoke with Yi from [facility] - bed available today (request noon)
tt hospitalist
PLAN: [facility]
Report #: [phone]
Fax #: [phone]
Original Note:
Left message with Yi at [facility] regarding bed availability for tomorrow as patient will be stable for dc per hospitalist.
Await call back from Yi
No preauth
PLAN: [facility], pending bed availability
--- NOTE | 2025-03-12 09:09 | W.PN.ID1 ---
Date of Service
Date of Service: March 12, 2025
Today's Communication
Sign off
Assessment / Plan
WNV Encephalitis - improving
Leukocytosis - low-grade
Elevated CRP
A-fib
Hx CVA
HTN
Seizure disorder
BPH
Recommendations:
Serum/CSF West Nile Virus IgM positive.
Lumbar puncture abnormal. 73 WBC, 70% lymphs. Pleocytosis is suggestive of a viral etiology. Meningitis panel by PCR negative, including HSV and VZV.
Full CSF arbovirus panel pending.
Serum Lyme screen positive; western blot (+) IgG / (-) IgM, consistent with old exposure. Serum Lyme DNA neg.
Continue with supportive care. There is no specific antiviral treatment for West Nile virus
Monitor mental status.
Nothing further to add from a Infectious Diseases standpoint.
Will see again at your request.
����������������������������������������������������������
Chief Complaint
-: Other (West nile encephalitis)
Subjective / Review of Systems
Review of Systems: No Fever and No Chills
Vital Signs / Physical Exam
Vital Signs
Vital Signs
Temp Pulse Resp BP Pulse Ox
97.9 F 105 19 151/79 98
03/12/25 07:31 03/12/25 08:41 03/12/25 08:37 03/12/25 08:41 03/12/25 05:49
Physical Exam
Constitutional: Comfortable
Eyes: Sclera Anicteric
Cardiovascular: Regular Rate and S1/S2; Negative S3/S4
Pulmonary: Clear
Gastrointestinal: Soft, Non Tender, Non Distended and Normal Bowel Sounds
Extremities: Negative Edema
Neurological: Awake, Alert, Oriented and Other (Hard of hearing); Negative Meningeal Signs
Psychological: Calm
Objective Data
Lab Data
Lab Results
03/12/25 04:32
03/12/25 04:32
ESR 4 mm/hour (0-20) 03/02/25 05:57
PT 12.8 Sec (11.4-14.6) 03/03/25 11:26
INR 0.94 03/03/25 11:26
Estimated Creat Clear 114 ml/min 03/12/25 04:32
Lactic Acid 1.5 mmol/L (0.7-2.0) 03/02/25 21:45
Total Bilirubin 0.9 mg/dl (0.2-1.3) 03/05/25 03:31
AST 69 U/L (17-59) H 03/05/25 03:31
ALT 46 U/L (0-50) 03/05/25 03:31
Alkaline Phosphatase 68 U/L (38-126) 03/05/25 03:31
C-Reactive Protein 22.40 mg/L (0.0-10.00) H 03/02/25 05:57
Most recent labs reviewed.
Micro Results:
03/04/25 16:10 Fungal Culture - Preliminary
Csf Culture in progress.
Positive cultures are reported as soon as detected.
Final report to follow in four to five weeks.
03/04/25 16:10 CSF Culture - Final
Csf No Growth After 5 Days - Final Report
Gram Stain - Final
03/04/25 16:10 Meningitis/Encephalitis Panel (PCR) - Final
Csf
03/02/25 05:57 Influenza Types A & B (FABRIZIO) - Final
Nasal Swab Negative for Influenza A & B, NAAT
Negative results must be combined with clinical observations
and patient history.
Nucleic Acid Amplification test (NAAT)performed on the
[employer] platform.
CSF
03/04/25
16:10
CSF West Nile IgM Ab 9.57 H
Imaging:
03/02/2025 MRI brain with and without contrast: no MRI evidence for acute infarct. Large region of encephalomalacia in the right temporal and occipital lobes consistent with a large chronic transcortical infarct. Moderate sized band of
encephalomalacia in the periventricular right frontal lobe and right basal ganglia consistent with a chronic hemorrhagic infarct or resolved hypertensive intraparenchymal hemorrhage. Mild volume loss in the left cerebral hemisphere and cerebellum.
Please see full dictation for additional detail.
03/03/2025 CXR (portable): heart is mildly enlarged. Moderate amount of focal perihilar ground glass opacity in the left upper lobe, which appears to have increased compared with the prior radiographic examinations.
[2025-03-12] MEDS: MIRALAX 17 GRAMS PO (09:34)
--- NOTE | 2025-03-12 12:56 | W.PN.HOSP.TC ---
Today's Communication/Plan
-
Medically stable for transfer to acute rehab ([facility]) when bed available. CM aware.
Assessment / Plan
Assessment / Plan
Assessment:
Acute west Nile encephalitis
- presented with confusion/weakness
- possible bird reservoir
- ID following; supportive care
breakthrough Seizure
Hx of prior CVA and Seizure
- continue Valproic acid (previously on Keppra)
- MRI brain negative
- repeat EEG 03/10 into 03/11 without ongoing seizures, reviewed with Neurology
Constipation with possible fecal impaction
- s/p MoM enema 03/09 with 3 BMs
- continue bowel regimen
Bilateral pulmonary reticulonodular increased markings
- x-ray also showed small bilateral pleural effusion including fluid in the fissures and indistinctness of the central pulmonary vasculature or raising concern for pulm edema.
- s/p IV Lasix course; continue oral Lasix
- Cards signed off
Hypokalemia
- replete
Left upper new pulmonary infiltrate compared to admission chest x-ray
- Patient had a seizure and this raises concern for aspiration pneumonitis/pneumonia. No further fevers and normalized white count. Repeat chest x-ray shows resolution. Hold further antibiotics.
Hx of stroke and A-fib
- continue Eliquis
Essential HTN
- continue losartan
BPH on medication
Acute urinary retention
- Hematuria (associated with Eliquis use) with a reattempt of Pederson insertion possible traumatic
- Continue with Pederson now. Hematuria clear.
- Urology managing; TOV today
DVT ppx: Eliquis
Code: Full
Dispo: Medically stable for transfer to acute rehab ([facility]) when bed available. CM aware.
Anticipated Discharge: Within 24 hours
Subjective/Interval History
-
Date of Service: March 12, 2025
resting comfortably, no complaints at present
Pederson removed for TOV today by Urology
Objective Data
-
Labs:
Laboratory Results
03/12/25
04:32
WBC 11.0 H
Hgb 14.3
Hct 45.4
Plt Count 335
Sodium 138
Potassium 3.4 L
Chloride 105
Carbon Dioxide 31 H
BUN 21 H
Creatinine 0.6 L
Glucose 99
Calcium 8.2 L
Vital Signs:
Vital Signs
Temp Pulse Resp BP Pulse Ox
97.2 F 95 19 106/70 97
03/12/25 11:53 03/12/25 11:46 03/12/25 11:46 03/12/25 11:46 03/12/25 11:46
I&O
03/11/25 03/12/25 03/13/25
06:59 06:59 06:59
Intake Total 540 / 540 340 / 340 120 / 120
Output Total 1350 / 1350 1700 / 1700
Balance -810 / -810 -1360 / -1360 120 / 120
Physical Exam
-
General: No Apparent Distress
HEENT: Normocephalic and Atraumatic
Respiratory: Negative Wheezes
Cardiac: Regular Rhythm and S1/S2
GI: Soft and Nontender
Neuro: AO x 3
Psych: Calm
Data Reviewed
-
Total Time Spent with Patient (in minutes): 41
Labs: Labs Reviewed by me
[2025-03-12] MEDS: KCL 40 MEQ PO (13:21)
--- NOTE | 2025-03-12 14:53 | PN.CDI ---
CDI
- -
CDI:
Physician Documentation Request
Admit Date: 03/02/25 05:28
Dear Doctor Trudy,
03/06 Cardiology PN: 'Pulmonary edema on CXR, proBNP 1440 (no comparison, permanent afib), and mild hypoxemia - Echocardiogram 03/04: EF 60-65%, nl RV, no sig valve disease -transitioned to lasix 20mg PO daily 03/05'
03/11 Hospitalist PN 'Bilateral pulmonary reticulonodular increased markings...s/p IV Lasix course; continue oral Lasix'
Based on the above, could you clarify in the progress notes, the appropriate diagnosis, if significant, that supports the above abnormalities and additional evaluation, monitoring and/or treatment rendered:
Acute pulmonary edema
Other
Unable to determine
Use of terms such as suspected, likely, concern for, or probable (associated with a specific diagnosis that is being evaluated, monitored, or treated as if it exists) are acceptable and can be coded in the inpatient setting, when documented at the
time of discharge.
Thank you,
Kaye Serrato RN, BSN
CDI Specialist
Available via [place] text
Please use your independent medical judgment in providing your response.
--- NOTE | 2025-03-12 15:06 | PTCARENOTE ---
Assumed care of Pt at 1300; Pt resting comfortably in chair; Pt on voiding trial after mccauley removal this AM; Attempted multiple times to urinate but unable to void. Pt [place] [facility] [place] able to have BM but unable to pass urine. Dr. Cantu notified
by 3pm - new 20 fr coude catheter placed by physician. Pt tolerated well. Will continue to monitor and assess.
--- NOTE | 2025-03-12 15:15 | W.PN.UPDATE ---
Update Note
Progress Note Update
pt unable to urinate
mccauley replaced
DISCHARGE WITH CATH
CASTRO SHOULD NOT REMOVE- without direction of urology
pt has established urologist- preferably should f/u with his known doc
call with any further questions
[2025-03-12] MEDS: PROSCAR 5 MG PO (19:13)
[2025-03-12] MEDS: REMOVE LIDOCAINE PATCH 2 PATCH REMOVE (19:13)
[2025-03-12] MEDS: FLOMAX 0.4 MG PO (19:13)
[2025-03-13] VITALS (10 sets, daily range): BP systolic 113–171; BP diastolic 73–94; PULSE 79; O2SAT 98; BMI 30.4
--- NOTE | 2025-03-13 01:48 | PTCARENOTE ---
Pt denies complaints. 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 Denies dinner. VSS. Bed alarm in place for pt safety. Care ongoing.
[2025-03-13] MEDS: MIRALAX 17 GRAMS PO (08:14)
[2025-03-13] MEDS: SENOKOT-S 1 TABLET PO (08:14)
[2025-03-13] MEDS: DEPAKOTE (12 HR RELEASE) 1000 MG PO (08:14)
[2025-03-13] MEDS: LEXAPRO 20 MG PO (08:14)
[2025-03-13] MEDS: LASIX 20 MG PO (08:15)
[2025-03-13] MEDS: METAMUCIL, KONSYL 1 PACKET PO (08:15)
[2025-03-13] MEDS: ELIQUIS 5 MG PO (08:15)
[2025-03-13] MEDS: COZAAR 100 MG PO (08:17)
[2025-03-13] MEDS: LIDOCAINE 4% PATCH 2 PATCH TOPICAL (08:17)
[2025-03-13] MEDS: NORVASC 5 MG PO (08:17)
--- NOTE | 2025-03-13 09:03 | W.PN.HOSP.TC ---
Today's Communication/Plan
-
dc to [facility] today
Assessment / Plan
Assessment / Plan
Assessment:
Acute west Nile encephalitis
- presented with confusion/weakness
- possible bird reservoir
- ID following; supportive care
breakthrough Seizure
Hx of prior CVA and Seizure
- continue Valproic acid (previously on Keppra)
- MRI brain negative
- repeat EEG 03/10 into 03/11 without ongoing seizures, reviewed with Neurology
Constipation with possible fecal impaction
- s/p MoM enema 03/09 with 3 BMs
- continue bowel regimen
Bilateral pulmonary reticulonodular increased markings, Acute pulmonary edema
- x-ray also showed small bilateral pleural effusion including fluid in the fissures and indistinctness of the central pulmonary vasculature or raising concern for pulm edema.
- s/p IV Lasix course; continue oral Lasix
- Cards signed off
Hypokalemia
- replete
Left upper new pulmonary infiltrate compared to admission chest x-ray
- Patient had a seizure and this raises concern for aspiration pneumonitis/pneumonia. No further fevers and normalized white count. Repeat chest x-ray shows resolution. Hold further antibiotics.
Hx of stroke and A-fib
- continue Eliquis
Essential HTN
- continue losartan
BPH on medication
Acute urinary retention
- Hematuria (associated with Eliquis use) with a reattempt of Pederson insertion possible traumatic
- Continue with Pederson now. Hematuria clear.
- Urology managing; TOV failed 03/12 - Pederson reinserted
DVT ppx: Eliquis
Code: Full
Dispo: Medically stable for transfer to acute rehab ([facility]) today.
Anticipated Discharge: Today
Subjective/Interval History
-
Date of Service: March 13, 2025
no complaints
Objective Data
-
Vital Signs:
Vital Signs
Temp Pulse Resp BP Pulse Ox
98.0 F 92 19 171/94 92
03/13/25 03:28 03/13/25 08:17 03/13/25 06:00 03/13/25 08:17 03/13/25 06:00
I&O
03/12/25 03/13/25 03/14/25
06:59 06:59 06:59
Intake Total 340 / 340 370 / 370
Output Total 1700 / 1700 1000 / 1000
Balance -1360 / -1360 -630 / -630
Physical Exam
-
General: No Apparent Distress
HEENT: Normocephalic and Atraumatic
Respiratory: Negative Wheezes
Cardiac: Regular Rhythm and S1/S2
GI: Soft and Nontender
Genito-urinary: No Costovertebral Tender
Neuro: AO x 3
Psych: Calm
Data Reviewed
-
Total Time Spent with Patient (in minutes): 42
Labs: Labs Reviewed by me
--- NOTE | 2025-03-13 10:30 | CM ---
spoke with Yi from [facility] - bed available today
tt Hospitalist
IMM explained & signed. In chart
PLAN: [facility] today
Report #: [phone]
Fax #: [phone]
[facility] request at noon
--- NOTE | 2025-03-13 12:09 | W.DCSUMMARY ---
Discharge Summary
Discharge Data
Date of Admission: 03/02/25
Date of Discharge: 03/13/25
-
Pending Results: No
Hospital Course
74 y/o M, hx of CVA, seizures, A. Fib presented to ER with worsening weakness and confusion for 1 week along with a breakthrough seizure. Neurology and ID were consulted. Patients neuroimaging was unremarkable. an LP and meningitis/encephalitis
panel revealed west nile virus positive serology and he was diagnosed with west nile virus encephalitis. Supportive care was recommended by ID. His home Keppra was switched to valproic acid and subsequent EEGS did not show seizure activity. The
hospital course was complicated by acute pulmonary edema requiring IV Lasix with transition to PO Lasix. Also urinary retention requiring Pederson placement per Urology. As patients mentation improved, he was able to participate with PT and OT who
recommended [facility]. He was discharged to Acute rehab on 03/13/25.
Discharge Plan
-
Patient Disposition: Acute Rehab Facility
Discharge Diagnosis/Procedures: west nile virus encephalitis, breakthrough seizure
Condition: Fair
Diet: Regular
Activity: As tolerated
Other Services: PT and OT
Referrals:
Merrick Mcpherson MD [Family Provider, Family Practice] - in one month
Prescriptions:
New
amlodipine 5 mg Tablet
5 mg PO DAILY 30 Days Qty: 30 0RF
divalproex 500 mg Tablet,Delayed Release (Dr/Ec)
1,000 mg PO BID Qty: 60 0RF
furosemide 20 mg Tablet
20 mg PO DAILY Qty: 30 0RF
Continued
rosuvastatin 5 MG tablet
5 mg PO WE
alfuzosin [Uroxatral] 10 MG tablet extended release 24 hr
10 mg PO HS
Eliquis 5 MG tablet
5 mg PO BID
acetaminophen [Tylenol Extra Strength] 500 MG tablet
1,000 mg PO Q6HPRN PRN (Reason: mild pain)
escitalopram oxalate 20 MG tablet
20 mg PO DAILY
Metamucil Fiber (aspartame) 1 PACKET powder in packet
1 packet PO DAILY
finasteride 5 MG tablet
5 mg PO HS
losartan 100 mg Tablet
100 mg PO DAILY
Discontinued
levetiracetam 500 MG tablet
1,000 mg PO BID Qty: 120 0RF
Discharge Orders:
Discharge Patient (As Directed); Ordered 03/13/25
Ordered By: Tereso Yates
Discharge Date and Time
Print Language: BERMUDIAN
== END 2025-03-13 15:00 | DRG 865 ==
LOC: IMU 05:28
PROVIDERS: Emergency Medicine; Internal Medicine; Nurse Practitioner Gerontology; Radiology Vascular & Interventional Radiology; ADMITTING PHYSICIAN Internal Medicine; ATTENDING PHYSICIAN Internal Medicine; CONSULT PHYSICIAN Physical Medicine & Rehabilitation; CONSULT PHYSICIAN Specialist; CONSULT PHYSICIAN Student in an Organized Health Care Education/Training Program; EMERGENCY PHYSICIAN Student in an Organized Health Care Education/Training Program; FAMILY PHYSICIAN Family Medicine; OTHER PHYSICIAN Internal Medicine Infectious Disease; OTHER PHYSICIAN Psychiatry & Neurology Neurology
PROC: 009U3ZX Drainage of Spinal Canal, Percutaneous Approach, Diagnostic (ICD-10-PCS; 2025-03-04)
PROC: B01B1ZZ Fluoroscopy of Spinal Cord using Low Osmolar Contrast (ICD-10-PCS; 2025-03-04)
DX: A92.31 West Nile virus infection with encephalitis (principal); G92.8 Other toxic encephalopathy; J81.0 Acute pulmonary edema; I48.21 Permanent atrial fibrillation; I5A Non-ischemic myocardial injury (non-traumatic); R47.01 Aphasia; R06.3 Periodic breathing; I42.9 Cardiomyopathy, unspecified; N39.0 Urinary tract infection, site not specified; D68.32 Hemorrhagic disorder due to extrinsic circulating anticoagulants; R53.83 Other fatigue; D50.9 Iron deficiency anemia, unspecified; F41.9 Anxiety disorder, unspecified; D69.6 Thrombocytopenia, unspecified; E86.0 Dehydration; K21.9 Gastro-esophageal reflux disease without esophagitis; R33.8 Other retention of urine; E78.00 Pure hypercholesterolemia, unspecified; I70.0 Atherosclerosis of aorta; G93.89 Other specified disorders of brain; G31.9 Degenerative disease of nervous system, unspecified; R73.03 Prediabetes; N40.1 Benign prostatic hyperplasia with lower urinary tract symptoms; H55.00 Unspecified nystagmus; G40.401 Other generalized epilepsy and epileptic syndromes, not intractable, with status epilepticus; I11.9 Hypertensive heart disease without heart failure; R47.81 Slurred speech; R79.82 Elevated C-reactive protein (CRP); R33.9 Retention of urine, unspecified; H91.90 Unspecified hearing loss, unspecified ear; R09.02 Hypoxemia; R31.9 Hematuria, unspecified; K59.00 Constipation, unspecified; E87.6 Hypokalemia; F17.290 Nicotine dependence, other tobacco product, uncomplicated; Z79.01 Long term (current) use of anticoagulants; Z86.73 Personal history of transient ischemic attack (TIA), and cerebral infarction without residual deficits; Z11.52 Encounter for screening for COVID-19; Z78.1 Physical restraint status; Z74.01 Bed confinement status; Z90.49 Acquired absence of other specified parts of digestive tract
CPT/HCPCS: 62328; 70450; 70553; 71045; 71046; 74177; 80048; 80053; 80061; 80164; 80177; 80306; 80307; 81003; 81015; 82077; 82140; 82550; 82607; 82805; 82945; 83036; 83605; 83735; 83880; 84145; 84157; 84443; 84484; 85025; 85027; 85610; 85652; 86140; 86255; 86592; 86617; 86618; 86780; 86788; 87015; 87070; 87102; 87116; 87205; 87476; 87483; 87502; 87811; 88108; 89051; 92526; 92610; 93005; 93306; 95714; 95813; 95816; 96374; 97112; 97116; 97163; 97167; 97530; 97535; 99285; Q9967

== ENCOUNTER → 2025-04-10 14:49 | Outpatient (REF) | payer MEDICARE, OTHER, SELFPAY ==
[2025-04-10 16:37] LABS: Blood Urea Nitrogen 10 mg/dl (9-20); Calcium 8.5 mg/dl (8.4-10.2); Carbon Dioxide 26 mmol/L (22-30); Chloride 103 mmol/L (98-107); Glucose 93 mg/dl (70-99); Potassium 3.7 mmol/L (3.5-5.1); Sodium 134 mmol/L (135-145); eGFR > 60.00
[2025-04-10 16:39] LABS: Hematocrit 41.7 % (39.0-52.0); Hemoglobin 13.3 g/dL (13.0-18.0); Mean Corp Hgb Conc. 31.9 g/dL (33.0-37.0); Mean Corpuscular Volume 75.8 fL (80.0-94.0); Platelet Count 207 10^3/uL (130-400); Red Cell Dist. Width 22.0 % (11.5-14.5)
== END ==
LOC: CLAB 14:49
PROVIDERS: ATTENDING PHYSICIAN Family Medicine
DX: R56.9 Unspecified convulsions (principal); I48.0 Paroxysmal atrial fibrillation
CPT/HCPCS: 80048; 85027

== ENCOUNTER 2025-06-12 07:11 | Outpatient (RCR) | payer MEDICARE, OTHER, SELFPAY | END 2025-06-12 23:59 | disposition home or self-care (01) | LOC: RPT 07:11 | PROVIDERS: ATTENDING PHYSICIAN Family Medicine | DX: A92.31 West Nile virus infection with encephalitis (principal); A92.30 West Nile virus infection, unspecified (principal); Z73.6 Limitation of activities due to disability; R26.2 Difficulty in walking, not elsewhere classified; M62.81 Muscle weakness (generalized); I69.959 Hemiplegia and hemiparesis following unspecified cerebrovascular disease affecting unspecified side; R26.89 Other abnormalities of gait and mobility; I69.998 Other sequelae following unspecified cerebrovascular disease; R41.841 Cognitive communication deficit | CPT/HCPCS: 96125; 97110; 97112; 97129; 97130; 97140; 97530 ==

== ENCOUNTER 2025-07-15 07:25 | Outpatient (RCR) | payer MEDICARE, OTHER, SELFPAY | END 2025-07-15 23:59 | disposition home or self-care (01) | LOC: RPT 07:25 | PROVIDERS: ATTENDING PHYSICIAN Family Medicine | DX: A92.31 West Nile virus infection with encephalitis (principal); Z73.6 Limitation of activities due to disability; R26.2 Difficulty in walking, not elsewhere classified; M62.81 Muscle weakness (generalized); I69.998 Other sequelae following unspecified cerebrovascular disease; R26.89 Other abnormalities of gait and mobility; R41.841 Cognitive communication deficit; I69.951 Hemiplegia and hemiparesis following unspecified cerebrovascular disease affecting right dominant side | CPT/HCPCS: 97110; 97112; 97129; 97130; 97530 ==